=== PATIENT | male | born 1945 | race Caucasian/White ===

== ENCOUNTER 2016-06-09 20:08 | Emergency (ER) | payer MEDICARE, OTHER ==
--- NOTE | 2016-06-09 21:18 | ED ---
Cooper Fournier Rebecca, scribed for George Haney MD on 06/09/16 at 2035 . Lower Extremity - HPI Summary HPI Summary: Pt is a 71 y/o M who presents to ED c/o RLE wounds. Reports wounds have been present for approximately 2 months. Sx aggravated and alleviated by nothing. Recently has begun applying vitamin E to the wounds. additionally notes fever and AMS characterized as confusion for 4 days. Denies any pain. Was last seen by his PCP 1 month ago for an unrelated issue. Has not had his PCP evaluate wounds. - History of Current Complaint Chief Complaint: EDGeneral Stated Complaint: WOUND ON LOWER LEG Time Seen by Provider: 06/09/16 20:26 Hx Obtained From: Patient, Family/Town Marshal - Onset/Duration: Still Present Severity Currently: None Pain Intensity: 0 Pain Scale Used: 0-10 Numeric Location: Is Discrete @ - RLE Associated Signs And Symptoms: Positive: Fever, Other - AMS (confusion) Aggravating Factor(s): Nothing Alleviating Factor(s): Nothing - Allergies/Home Medications Allergies/Adverse Reactions: Allergies Allergy/AdvReac Type Severity Reaction Status Date / Time Penicillins AdvReac Intermediate GI Upset Verified 04/10/15 12:17 BEE STINGS Allergy ANAPHYLACTI Uncoded 04/10/15 12:17 C PMH/Surg Hx/FS Hx/Imm Hx Endocrine/Hematology History: Denies: Hx Diabetes Cardiovascular History: Reports: Hx Hypertension - ON MEDICATION FOR Denies: Hx Congestive Heart Failure, Hx Pacemaker/ICD Respiratory History: Reports: Hx Sleep Apnea History: Reports: Hx Kidney Stones - HX OF Denies: Hx Renal Disease Musculoskeletal History: Reports: Hx Arthritis, Hx Back Problems, Hx Orthopedic Injury - (left) tkr, Other Musculoskeletal History - SPINAL STENOSIS- SURGERY 2009 Sensory History: Reports: Hx Cataracts, Hx Contacts or Glasses - READING Denies: Hx Hearing Aid Opthamlomology History: Reports: Hx Cataracts, Hx Contacts or Glasses - READING Neurological History: Reports: Other Neuro Impairments/Disorders - RESTLESS LEG SYNDROME - Surgical History Surgery Procedure, Year, and Place: LEFT TKR- CJ. RIGHT TKR CJ 03/2014. BILAT CATARACTS 2005- [facility] [place]. 3 LEVEL LUMBAR LAMINECTOMY 2010 [facility]. RIGHT SHOULDER SURGERY X3 1998 [facility]. RIGHT KNEE SCOPING [facility] [place]-2000. LEFT FOOT SURGERY Hx Anesthesia Reactions: No - STRONG TOLERANCE TO PAIN MEDICATIONS AND ANESTHESIA" Infectious Disease History: Yes Infectious Disease History: Denies: Traveled Outside the [place] in Last 30 Days - Family History Known Family History: Positive: Diabetes - Social History Alcohol Use: None Alcohol Amount: RECOVERING ALCOHOLIC X 28 YEARS Substance Use Type: Reports: None Substance Use Comment - Amount & Last Used: MARIJUANA USE IN THE PAST- STOPPED IN 1979 Smoking Status (MU): Never Smoked Tobacco Amount Used/How Often: EVANJUANNA SMOKER X 14 YEARS Review of Systems Positive: Fever Positive: Other - Wound on the RLE Positive: Other - AMS (confusion) All Other Systems Reviewed And Are Negative: Yes Physical Exam Triage Information Reviewed: Yes Vital Signs On Initial Exam: Initial Vitals Temp Pulse Resp BP Pulse Ox 101.5 F 81 22 130/103 95 06/09/16 20:18 06/09/16 20:18 06/09/16 20:18 06/09/16 20:18 06/09/16 20:18 Appearance: Positive: No Pain Distress, Obese Skin: Positive: Warm Eyes: Positive: Normal ENT: Positive: Hearing grossly normal Neck: Positive: Supple Respiratory/Lung Sounds: Positive: Clear to Auscultation, Breath Sounds Present Cardiovascular: Positive: RRR Abdomen Description: Positive: Nontender, Soft Bowel Sounds: Positive: Present Musculoskeletal: Positive: Strength/ROM Intact, Other - area of warmth, erythema , iduration rle, no fluctuance, pulses 1+ disrtally Neurological: Positive: Sensory/Motor Intact, Alert, Oriented to Person Place, Time Diagnostics - Vital Signs Vital Signs Temp Pulse Resp BP Pulse Ox 06/09/16 20:18 101.5 F 81 22 130/103 95 - Laboratory Result Diagrams: 06/09/16 21:15 06/09/16 21:15 Lab Statement: Any lab studies that have been ordered have been reviewed, and results considered in the medical decision making process. Lower Extremity Course/Dx - Course Assessment/Plan: Pt is a 71 y/o M who presents to ED with a CC of wounds on the RLE for 2 months. notes fever and AMS (confusion) for the last 4 days. Denies any pain. Pt will be D/C to home with a dx of cellulitis with a follow up with his PCP. - Diagnoses Provider Diagnoses: Cellulitis Discharge - Discharge Plan Condition: Improved Disposition: HOME Prescriptions: Cephalexin CAP* [Keflex 500 CAP*] 500 mg PO QID #30 cap Patient Education Materials: Cellulitis (ED) Referrals: Waldemar Jenkins MD [Primary Care Provider] - 4 Days (Follow up with your primary care physician in the next 4 days. ) The documentation as recorded by the Cooper brothers Rebecca accurately reflects the service I personally performed and the decisions made by me, George Haney MD.
[2016-06-09 21:24] LABS: Hematocrit 45 % (42-52); Mean Corpuscular HGB Conc 33 g/dl (31-36); Mean Corpuscular Hemoglobin 29 pg (27-31); Mean Corpuscular Volume 86 fL (80-94); Mean Platelet Volume 9 um3 (7.4-10.4); Red Blood Count 5.22 10^6/ul (4.0-5.4); Red Cell Distribution Width 14 % (10.5-15); White Blood Count 14.8 10^3/ul (3.5-10.8)
[2016-06-09 21:38] LABS: Albumin 3.5 g/dL (3.2-5.2); BUN/Creatinine Ratio 16.6 (8-20); Calcium 8.3 mg/dL (8.6-10.3); EGFR African American 62.1 (>60); EGFR Non-African American 48.3 (>60); Globulin 3.7 g/dL (2-4); Magnesium 1.8 mg/dL (1.9-2.7); Potassium 3.2 mmol/L (3.5-5.0); Total Bilirubin 0.9 mg/dL (0.2-1.0); Total Protein 7.2 g/dL (6.4-8.9)
[2016-06-09] MEDS ORDERED: ceFAZolin 1 GM in Dextrose (*) 1 GM/50 ML BAG IVPB ONE (21:49)
[2016-06-09 23:27] VITALS: BP 130/54
== END 2016-06-09 23:26 | disposition home or self-care (01) ==
LOC: ED 20:08
DX: L03.115 Cellulitis of right lower limb (principal); S81.801A Unspecified open wound, right lower leg, initial encounter; R50.9 Fever, unspecified; R41.82 Altered mental status, unspecified
CPT/HCPCS: 36415; 80053; 83605; 83735; 85025; 99282; J0690

== ENCOUNTER 2017-07-06 00:48 | Inpatient (IN) | payer MEDICARE, OTHER ==
--- OUTSIDE RECORDS SUMMARY | 2017-07-06 01:05 | XMS REPORT ---
:1945 External Reference #:[id number] Author Organization [facility] [employer] Address [address] [address] Phone [phone] Care Team Providers Name Role Phone Althea Simon MD Care Team Information Teaching Manager Unavailable Waldemar Jenkins MD Primary Care Physician Unavailable Payers Type Date Identification Numbers Payment Provider Subscriber Medicare Primary Effective: Policy Number: Medicare Mark Suggs 2012 [id number] PayID: [id number] [address] [place] [address] Commercial Policy Number: [id number] [employer] Mark Suggs Group Number: [id number] [address] PayID: [id number] [place] [address] Medigap Part B Expires: 2017 Policy Number: [employer] Insurance Mark Suggs [id number] Group Number: [id number] [address] PayID: [id number] [place] [address] Problems Date Description Provider Status Onset: 08/29/2014 Periodic leg movements of sleep Latonya Villavicencio DNP, DAMI, Active ENVIRONMENTAL STUDIES DEPARTMENT CHAIR-BC Onset: 08/29/2014 Restless legs Latonya Villavicencio DNP, DAMI, Active ENVIRONMENTAL STUDIES DEPARTMENT CHAIR-BC Onset: 11/10/2014 Hypersomnia with sleep apnea Latonya Villavicencio DNP, RN, Active ENVIRONMENTAL STUDIES DEPARTMENT CHAIR-BC Note: Positional therapy to avoid supine sleep Onset: 03/11/2017 Hypoxemia Latonya Villavicencio DNP, RN, ENVIRONMENTAL STUDIES DEPARTMENT CHAIR-BC Active Family History Date Family Member(s) Problem(s) Comments General Diabetes Social History Type Date Description Comments Marital Status Lives With Lives With Daughter Lives With son in law Lives With Grandchildren 3 Occupation Retired Occupation Drafting and design For [employer] Cigarette Use Never Smoked Cigarettes ETOH Use Has consumed alcohol in the past ETOH Use Denies alcohol use Recreational Drug Use Denies Drug Use Smoking Patient has never smoked Recreational Drug Use Formerly used Marijuana Ended 1980 regularly Daily Caffeine Consumes on average 1 cup of regular coffee per day Exercise Type/Frequency Exercises regularly Works hard at home/ property, fence building, gardening, etc. Allergies, Adverse Reactions, Alerts Date Description Reaction Status Severity Comments 03/14/2014 NKDA active 11/18/2016 Bee Sting active Medications Medication Date Status Form Strength Qnty SIG Indications Ordering Provider Pramipexole 06/18 Active Tablets 0.25mg 90tab 3 tabs Latonya Dihydrochloride s every Villavicencio, evening DAMI CASTELLANOS, note ENVIRONMENTAL STUDIES DEPARTMENT CHAIR-BC increase dose Oxygen 02/12 Active Misc 1unit 2 l nc at R09.02 s bedtime Saud, EMANUEL RN, ENVIRONMENTAL STUDIES DEPARTMENT CHAIR-BC Gabapentin 08/29 Active Tablets 600mg 180ta 1 by mouth G25.81 bs at in the Villavicencio, morning and DAMI CASTELLANOS, noon, 1-2 ENVIRONMENTAL STUDIES DEPARTMENT CHAIR-BC by mouth at onset of rls sx, 2 by mouth at hs. Tramadol HCL 00 Active Tablets 50mg 120ta 1-2 tablets Unknown /0000 bs every 6 hours as needed Atenolol Active Tablets 50mg 1 by mouth Unknown /0000 every day Amitriptyline HCL Active Tablets 25mg 1 by mouth Unknown /0000 every night at bedtime Lyrica Active Capsules 50mg 1 by mouth Unknown /0000 4 x a day Pramipexole 05/13 Hx Tablets 0.125mg 120ta 1 tab 2-3 Latonya Dihydrochloride bs hours Villavicencio, - before bed, DAMI CASTELLANOS, 06/18 ENVIRONMENTAL STUDIES DEPARTMENT CHAIR-BC /2017 increase one tab q 4 days (States taking 1 tab qid 06/18/17) Horizant 03/11 Hx Tablets 600mg 30tab 1 po in gianna G47.61 ER s evening 6 Villavicencio, - PM DAMI CASTELLANOS, 05/13 ENVIRONMENTAL STUDIES DEPARTMENT CHAIR- Oxygen 02/12 Hx Misc 2 l nc at R09.02 bedtime dx. Saud, - Nocturnal EMANUEL RN, 02/12 hypoxemia ENVIRONMENTAL STUDIES DEPARTMENT CHAIR- Ultracet 04/10 Hx Tablets 37.5-325m 40tab 1 - 2 by Adryan /2014 g s mouth Sidney, - q4-6hr as M.D. 02/01 needed pain Hydrocodone-Aceta 02/15 Hx Tablets 5-325mg 30tab 1-2 by G56.02 Johnb minophen s mouth q4-6 MD Nicholas - hour as 02/01 needed pain Gabapentin 08/29 Hx Capsules 100mg 90cap 1-2 by 327.51 s mouth at at Villavicencio, - bedtime, DAMI CASTELLANOS, 08/29 may take ENVIRONMENTAL STUDIES DEPARTMENT CHAIR additional 100 mg if awaken at night with symptoms. Ropinirole HCL 07/12 Hx Tablets 1mg 450ta take 1 bs tablet by Saud, - mouth twice DAMI CASTELLANOS, 05/13 a day and 3 ENVIRONMENTAL STUDIES DEPARTMENT CHAIR tablets by mouth at bedtime. 3 month supply Gabapentin Hx Tablets 600mg 180ta 1 tab am Latonya / bs and noon, 2 Saud, - tabs at DAMI CASTELLANOS, 08/29 onset of ENVIRONMENTAL STUDIES DEPARTMENT CHAIR- RLS and 2 tabs at bedtime. Requip Hx Tablets 1mg 30tab 1mg twice a Unknown /0000 s day and 3mg - at bedtime 07/12 Amitriptyline HCL Hx Tablets 50mg 30tab 1 by mouth Unknown /0000 s every night - at bedtime 05/13 Cipro Hx Tablets 500mg 1 by mouth Unknown /0000 twice a day - 03/10 Levaquin /00 Hx Tablets 500mg 1 by mouth Unknown /0000 every day - 02/02 Acetaminophen-Cod Hx Tablets 300-30mg 1 tab by Unknown eine #3 /0000 mough every - 6 hrs as 03/10 Vital Signs Date Vital Result Comment 06/18/2017 Height 68 inches 5'8" Weight 295.12 lb with shoes Heart Rate 62 /min BP Systolic Sitting 170 mmHg Lue large cuff BP Diastolic Sitting 88 mmHg Lue large cuff Respiratory Rate 16 /min O2 % BldC Oximetry 97 % On Ra BMI (Body Mass Index) 44.9 kg/m2 05/13/2017 Height 68 inches 5'8" Weight 293.00 lb Heart Rate 64 /min BP Systolic 140 mmHg BP Diastolic 72 mmHg Respiratory Rate 16 /min BMI (Body Mass Index) 44.5 kg/m2 03/11/2017 Height 68 inches 5'8" Weight 297.00 lb Heart Rate 60 /min BP Systolic Sitting 140 mmHg BP Diastolic Sitting 78 mmHg Respiratory Rate 14 /min O2 % BldC Oximetry 96 % BMI (Body Mass Index) 45.2 kg/m2 02/03/2017 Height 68 inches 5'8" Weight 297.38 lb Heart Rate 72 /min BP Systolic Sitting 178 mmHg BP Diastolic Sitting 76 mmHg Respiratory Rate 14 /min Body Temperature 98.1 F BMI (Body Mass Index) 45.2 kg/m2 01/26/2017 Height 68 inches 5'8" Weight 290.00 lb Heart Rate 52 /min BP Systolic Sitting 158 mmHg BP Diastolic Sitting 98 mmHg Respiratory Rate 14 /min O2 % BldC Oximetry 98 % BMI (Body Mass Index) 44.1 kg/m2 11/18/2016 Height 68 inches 5'8" Weight 301.00 lb Heart Rate 66 /min BP Systolic Sitting 152 mmHg BP Diastolic Sitting 74 mmHg Respiratory Rate 20 /min O2 % BldC Oximetry 96 % room air BMI (Body Mass Index) 45.8 kg/m2 05/21/2016 Height 68 inches 5'8" Weight 280.00 lb reported Heart Rate 50 /min BP Systolic 146 mmHg BP Diastolic 80 mmHg Respiratory Rate 14 /min O2 % BldC Oximetry 96 % BMI (Body Mass Index) 42.6 kg/m2 11/13/2015 Height 68 inches 5'8" Weight 265.00 lb pt reported Heart Rate 52 /min BP Systolic Sitting 146 mmHg BP Diastolic Sitting 87 mmHg Respiratory Rate 18 /min O2 % BldC Oximetry 97 % BMI (Body Mass Index) 40.3 kg/m2 05/15/2015 Height 68 inches 5'8" Weight 270.50 lb reported Heart Rate 51 /min BP Systolic 148 mmHg BP Diastolic 88 mmHg Respiratory Rate 14 /min O2 % BldC Oximetry 96 % BMI (Body Mass Index) 41.1 kg/m2 05/14/2015 Height 68 inches 5'8" Weight 270.00 lb BMI (Body Mass Index) 41.0 kg/m2 04/23/2015 Height 68 inches 5'8" Weight 270.00 lb Body Temperature 97.2 F BMI (Body Mass Index) 41.0 kg/m2 03/26/2015 Height 68 inches 5'8" Weight 270.00 lb Pain Level 5 BMI (Body Mass Index) 41.0 kg/m2 02/15/2015 Height 68 inches 5'8" Weight 270.00 lb Heart Rate 49 /min BP Systolic Sitting 146 mmHg BP Diastolic Sitting 87 mmHg Pain Level 8 BMI (Body Mass Index) 41.0 kg/m2 01/18/2015 Height 68 inches 5'8" Weight 270.00 lb Heart Rate 54 /min Pain Level 8 BMI (Body Mass Index) 41.0 kg/m2 11/10/2014 Height 68 inches 5'8" Weight 275.00 lb Heart Rate 56 /min BP Systolic 150 mmHg BP Diastolic 80 mmHg Respiratory Rate 16 /min O2 % BldC Oximetry 98 % BMI (Body Mass Index) 41.8 kg/m2 Neck Circumference in inches 18 08/29/2014 Height 68 inches 5'8" Weight 285.00 lb Heart Rate 46 /min BP Systolic Sitting 130 mmHg BP Diastolic Sitting 84 mmHg O2 % BldC Oximetry 98 % BMI (Body Mass Index) 43.3 kg/m2 Neck Circumference in inches 18 03/14/2014 Height 68 inches 5'8" Weight 276.00 lb Heart Rate 59 /min BP Systolic Sitting 168 mmHg BP Diastolic Sitting 100 mmHg Respiratory Rate 18 /min O2 % BldC Oximetry 97 % BMI (Body Mass Index) 42.0 kg/m2 Results Description No Information Procedures Date CPT Code Description Status 12/12/2016 23559 Polysomnography Sleep Staging 4+ Parameters Completed 09/05/2016 98480 Removal Devitalized Tissue Wound Greater Than 20 Square Completed CM 09/05/2016 14970 Removal Devitalization Tissue Wound Less Than Equal 20 Completed Square CM 08/28/2016 86154 Removal Devitalized Tissue Wound Greater Than 20 Square Completed CM 08/28/2016 34730 Removal Devitalization Tissue Wound Less Than Equal 20 Completed Square CM 04/10/2015 51951 Carpal Tunnel Release Completed 04/10/2015 02656 Carpal Tunnel Release Completed 03/13/2015 45734 Carpal Tunnel Release Completed 03/13/2015 49914 Carpal Tunnel Release Completed 05/10/2007 57247 Holter Monitor Interpretation Completed 05/10/2007 73471 Holter Monitor Interpretation Completed Encounters Type Date Location Provider CPT E/M Dx Office Visit 05/13/2017 [facility] Latonya Villavicencio, 06100 G47.14 9:45a [facility] Of [facility] CASTELLANOS RN, ENVIRONMENTAL STUDIES DEPARTMENT CHAIR-BC G47.61 G47.33 R09.02 Z68.41 Office Visit 03/11/2017 2:00p [facility] Latonya Villavicencio, 24893 G47.33 Services Of [facility] CASTELLANOS RN, ENVIRONMENTAL STUDIES DEPARTMENT CHAIR-BC G47.14 G47.61 R09.02 I87.2 E66.01 Z68.42 Office Visit 02/03/2017 12:30p [facility] Aldo Hennessy, 69615 I87.2 Infectious Diseases Yovani L97.211 L97.221 Office Visit 01/26/2017 9:30a [facility]ology [facility] Sleep Latonya Villavicencio 75104 G47.33 Services Of Julee CASTELLANOS RN, ENVIRONMENTAL STUDIES DEPARTMENT CHAIR-ANA CRISTINA R09.02 G47.61 Office Visit 11/18/2016 8:30a [facility] Sleep Latonya Villavicencio 42682 G47.61 Services Of Julee CASTELLANOS RN, ENVIRONMENTAL STUDIES DEPARTMENT CHAIR-ANA CRISTINA R09.02 I87.2 E66.01 Z68.42 Office Visit 10/24/2016 9:00a [facility] [place] [address] I87.311 [facility] [place] R09.89 L97.211 R09.02 Z86.14 E66.01 I87.2 Office Visit 10/10/2016 8:00a [facility] [place] [address] I87.311 [facility] R09.89 L97.211 R09.02 Z86.14 E66.01 Office Visit 10/03/2016 9:30a [facility] [place] [address] I87.311 [facility] [place] R09.89 L97.211 R09.02 Z86.14 Office Visit 09/26/2016 9:00a [facility] [place] [address] I87.311 [facility] [place] R09.89 L97.211 R09.02 Z86.14 Office Visit 09/19/2016 9:00a [facility] [place] [address] I87.311 [facility] [place] R09.89 L97.211 R09.02 Z86.14 Office Visit 09/12/2016 9:00a [facility] [place] [address] I87.311 [facility] [place] R09.89 L97.211 R09.02 Z86.14 Office Visit 05/21/2016 8:15a [facility]ology [facility] Sleep Latonya Villavicencio 52884 G47.61 Services Of Julee CASTELLANOS RN, FNP-ANA CRISTINA G25.81 E66.9 G47.33 Office Visit 11/13/2015 9:00a Pul[facility]ology [facility] Sleep Latonya Villavicencio 46913 G47.61 Services Of Julee CASTELLANOS RN, FNP-BC G25.81 G47.33 E66.01 Office Visit 05/15/2015 9:00a Pul[facility]ology [facility] Sleep Latonya Villavicencio 53094 G47.61 Services Of uJlee CASTELLANOS RN, FNP-BC G25.81 G47.30 G89.29 Office Visit 02/15/2015 8:20a Orthopedic Services Andreina Humphrey 54772 G56.02 Of Gale Pina Office Visit 01/18/2015 1:40p Orthopedic Services Andreina Humphrey 88023 G56.02 Of Gale Pina G56.01 Office Visit 11/10/2014 8:15a Pulmonology And Sleep Latonya Villavicencio 50655 327.51 Services Of Julee CASTELLANOS RN, FNP-BC 333.94 780.53 Office Visit 08/29/2014 8:30a Pul[facility] Sleep Latonya Villavicencio 89815 327.51 Services Of Julee CASTELLANOS RN, FNP-BC 333.94 Office Visit 03/14/2014 9:30a Pul[facility]ology [facility] Sleep Abilio Arroyo M.D. 72848 327.51 Services Of Julee 327.27 Office Visit 01/17/2008 9:00a Neurosurgery Services Of Huseyin Bo, 38543 724.1 Julee Pina Plan of Care Future Appointment(s):09/15/2017 10:00 am - Latonya Villavicencio DNP, RN, ENVIRONMENTAL STUDIES DEPARTMENT CHAIR-BC at [facility]06/18/2017 - Latonya Villavicencio DNP, RN, ENVIRONMENTAL STUDIES DEPARTMENT CHAIR- BCG47.8 Other sleep disordersFollow up:3 monthsRecommendations:Continue positional therapy for sleep apnea. To reduce sleep eating increased dose of pramipexole 0.25 mg 3 tabs every evening Call with report on how you are doing in 1 month If you have any furtherquestions, please call the Sleep Disorder Center at [phone].g47.61 Periodic limb movement disorderRecommendations:See assessment #1G47.33 Obstructive sleep apnea (adult) (pediatric)Recommendations:Positional LjvpcfrB96.02 HypoxemiaRecommendations: Continue oxygen 2 L at jnthbJ43.41 Body mass index (BMI) 40.0-44.9, adultRecommendations:Recommend weight loss
--- OUTSIDE RECORDS SUMMARY | 2017-07-06 01:07 | XMS REPORT ---
:1945 External Reference #:[id number] Author Organization [facility] Address [address] [place] [address] Phone [phone] Care Team Providers Name Role Phone Waldemar Jenkins MD Care Team Information Entry Level Project Engineer Unavailable Waldemar Jenkins MD Primary Care Physician Unavailable Payers Type Date Identification Numbers Payment Provider Subscriber Medicare Primary Effective: Policy Number: Medicare [place] 2012 [id number] PayID: [id number] [address] [place] [address] Medigap Part B Effective: 2012 Policy Number: Aetolga Suggs [id number] Group Name: Eric Mendoza [address] PayID: [id number] [place] [address] Medigap Part B Effective: Policy Number: BC/BS Dina Daley 2013 [id number] Es Expires: 2014 PayID: [id number] [address] [address] [place] [address] Problems Date Description Provider Status Onset: 04/14/2011 Backache Waldemar Jenkins M.D. Active Onset: 04/14/2011 Restless legs Waldemar Jenkins M.D. Active Onset: 04/14/2011 Central sleep apnea syndrome Waldemar Jenkins M.D. Active Onset: 06/09/2011 Acute otitis externa Waldemar Jenkins M.D. Active Onset: 07/10/2011 Otitis media Barbara Santillan M.D. Active Onset: 10/08/2011 Cellulitis and abscess of buttock Waldemar Jenkins M.D. Active Onset: 10/20/2011 Carpal tunnel syndrome Waldemar Jenkins M.D. Active Onset: 04/07/2012 Eruption Waldemar Jenkins M.D. Active Onset: 07/18/2013 Acute bronchitis Waldemar Jenkins M.D. Active Onset: 11/16/2013 Pain in limb Waldemar Jenkins M.D. Active Onset: 08/21/2014 Benign essential hypertension Waldemar Jenkins M.D. 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 Active Onset: 07/11/2015 Low back pain Waldemar Jenkins M.D. Active Onset: 02/19/2016 Cellulitis of right lower limb Wadlemar Jenkins M.D. Active Onset: 08/18/2016 Essential hypertension Waldemar Jenkins M.D. Active Social History Type Date Description Comments Occupation Retired Cigarette Use Nonsmoker Smoking Patient has never smoked Allergies, Adverse Reactions, Alerts Date Description Reaction Status Severity Comments 09/11/1997 Penicillin active 09/11/1997 Jose M Dave active Medications Medication Date Status Form Strength Qnty SIG Indications Ordering Provider Atenolol 04/07 Active Tablets 100mg 90tab 1/2 tablet Waldemar Isaiah s by mouth Breiman, every day M.D. Lasix 12/01 Active Tablets 20mg 30tab 1 by mouth Isaiah s in in the iman, morning for M.D. fluid Amitriptyline 09/29 Active Tablets 25mg 90tab take one Waldemar Colon s tablet by Breiman, mouth at M.D. 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 12/06 Diflucan 08/18 Hx Tablets 150mg 3tabs 1 by mouth Waldemar Colon /2016 x every Breimazachary, - other day M.DTrista 05/10 for 6 Silvadene 02/18 Hx Cream 1% 25gm Use Daily Waldemar Colon /2015 Maged Jenkins M.D. 05/10 Lasix 02/18 Hx Tablets 20mg 30tab 1 by mouTH Waldemar Colon /2015 s In Am Maged Jenkins M.D. 05/09 Keflex 02/18 Hx Capsules 500mg 20cap 1 by mouth Waldemar Colon /2015 s twice a day Maged Jenkins M.D. 03/05 Hydrocodone-Ac 07/10 Hx Tablets 10-325mg 50tab 1 tab by Waldemar Colon etamin s mouth every Gregory, - 6 hours as M.DTrista 02/18 Atenolol 08/21 Hx Tablets 50mg 30tab 1 by mouth s daily for bp Qasim, - S[employer]IOR [employer] DES[employer] ENGINEER 04/07 Vicodin 07/18 Hx 10/325 50uni 1 po q4-6 844.8 Waldemar Colon /2013 ts hrs prn pain Maged Jenkins M.D. 11/16 Doxycycline 07/18 Hx Capsules 100mg 20cap use 1bid Waldemar Colon Hyclate /2013 s Maged Jenkins M.D. 11/16 Nerve 11/03 Hx bilateral Waldemar Colon Conduction /2011 upper Gregory, Studies - extremity Yovani 04/07 nerve /2011 conduction studies Wristbrace 10/19 Hx r and l Waldemar Colon /2011 wrist brace Maged Jenkins M.D. 04/07 Clindamycin 10/07 Hx Capsules 150mg 60cap 3 po qid Waldemar Colon HCL Maged Gonzalez M.D. 10/19 Doxycycline 08/17 Hx Capsules 100mg 20cap 1 po bid Veronica Hyclate s Maged Remy Afnp-C 08/27 Ceftin 07/08 Hx Tablets 500mg 20tab 1 po bid x Waldmear JTrista /2011 s 10 days Ok Gregory, - To Fill with M.DTrista 08/17 allergy to penicillin Cipro 06/09 Hx Tablets 500 20tab 1 po bid Waldemar JTrista /2011 Maged Gonzalez M.D. 07/09 Handicapped 10/16 Hx needs Waldemar Colon Parking permanent Gregory, - handicapped M.Annamarie 04/14 sticker for arthritis Cortisporin 03/26 Hx Solution 1unit 2gtts tid Waldemar Colon Otic s x 4 days Maged Jenkins M.D. 05/15 Vicodin 01/09 Hx 10 30uni 1 po q4-6 844.8 Veronica ts hrs prn pain Maged Remy 03/26 Requip 08/25 Hx Tablets 1mg 180ta 1 po q hs Waldemar Colon Maged Hawkins M.D. 11/08 Neurontin 08/25 Hx Tablets 600mg 1 po qid Waldemar Colon Maged Jenkins M.D. 08/21 Centrum Silver 05/20 Hx 1 PO qd [facility] /[facility] Glucosamine/Ch 05/20 Hx 1 PO qd Family ondroitin /2006 [facility] Calcium/Magnes 05/20 Hx Family iium /2006 [facility] Iron Tab 05/20 Hx 100un Family /2006 its [facility] Vitamin E 05/20 Hx Capsules 1 PO qd Family /2006 [facility] Betamethasone 07/23 Hx Ointment 0.05% 45gm apply bid to Bobby T. Dipropionate /2005 hands prn Maged Gonzalez M.D. 08/25 Lachydrin 07/23 Hx 12% 16Oz Apply tid Bobby T. prn To [facility], - Affected M.D. 08/25 Prednisone 03/24 Hx Tablets 10mg 30tab 4 qd x3 then Bobby T. /2005 s 3 qd x 3 Midura, - days then 2 M.D. 07/23 qd x 3 1 qd x 3 Percocet 03/24 Hx Tablets 10mg;325 60tab 1-2 po q6 Bobby T. /2005 mg s hours prn Lisa, - M.D. 07/23 Note 09/20 Hx please D/c Waldemar Colon /2004 pt's oxygen Maged Jenkins M.D. 07/23 Hydrocodone/Ap 09/11 Hx Tablets 10/325 30tab 1 q4h prn Waldemar cortez /2004 s Maged Jenkins M.D. 07/23 Physical 09/11 Hx treatment Waldemar Colon Therapy and Gregory - evaluation M.DTrista 03/24 for back for /2004 4-6wks Neurontin 04/05 Hx 300mg 450un 5 op q hs [facility] Note 05/23 Hx 1Month Needs Jackson Colon /2002 Appropriate Maged Flores M.DTrista 06/22 Parking For /2002 Work Within 100FT From Building Cpap 02/24 Hx 1unit Needs Waldemar Colon /2001 s Bilevel Cpap Gregory - 14-Inspirato M.DTrista 04/05 ry And Exspiratory Orthodic 06/21 Hx as Needed Waldemar Colon /2001 For Tarsal Maged Jenkins M.D. 04/05 Tunnel-Bilat erally Biaxin 11/20 Hx 500mg 20uni 1 PO bid Gonzalo A. Maged Moss M.D. 11/30 Vioxx 11/20 Hx 25mg 30uni 1 PO qd prn Gonzalo Jovel /2000 ts Pain Maged Abel M.D. 12/20 Ultram 07/14 Hx Tablets 50mg 180ta Take One Waldemar Colon /2000 bs Tablet By Breiman, - Mouth Every M.D. 04/07 4 Hours Needed Elavil 03/16 Hx 25mg 30uni 1 PO qd Waldemar JTrista /1999 Maged Lambert M.D. 04/05 Ultram 07/05 Hx 50mg 120un 1 PO qid prn Gary STrista its Yovani Paz - 02/18 Ciprofloxacin 07/05 Hx 500mg 20uni 1 PO bid Eric Veliz /1999 Maged VargasDTrista 07/15 Vosol HC Otic 07/05 Hx Magdalena 10cc 3-4 gtts Eric Veliz Drops /1999 Each Ear bid Marcela, - prn M.D. 07/15 Amitriptyline 07/05 Hx Tablets 25mg 90tab take one Waldemar COHEN s tablet by Gregory, - mouth at M.D. 05/09 bedtime /2016 Cipro 01/21 Hx Tabs 500mg 20tab 1 PO bid Veronica /1998 s Hilcedricorf, - Afnp-C 01/31 Cortisporin 01/21 Hx 1Bott 4-5 gtts Veronica Otic le Into R Ear [place], - qid X 7 Days Afnp-C 01/28 TB Intradermal Active Injection Family Test /[facility] Medications Administered in Office Medication Date Status Form Strength Qnty SIG Indications Ordering Provider TB Intradermal Administered Injection Waldemar Colon Test 005 Yovani Jenkins TB Intradermal Administered Injection Jackson Colon Test 003 Yovani Flores TB Intradermal Administered Injection Nurse, Test 998 Nurse Immunizations CPT Code Status Date Vaccine Lot # [id number] Given 01/30/2017 High-Dose, Influenza Virus Vacccine-fluzone 65 and older 12820 Given 02/27/2016 High-Dose, Influenza Virus Vacccine-fluzone 65 and [id number] older 27945 Given 03/07/2013 Pneumococcal Conjugate Vacc-13 [id number] Given 03/07/2013 High-Dose, Influenza Virus Vacccine-fluzone 65 and [id number] older 14789 Given 05/15/2009 H1N1 Virus Vaccine [id number] 26056 Given 05/15/2009 H1N1 Immunization Intramuscular/Intranasal W Counseling 25727 Given 01/09/2009 DO Not Use Split Influenza Virus Vaccine [id number] Vital Signs Date Vital Result Comment 06/16/2017 BP Systolic 162 mmHg BP Diastolic 70 mmHg Heart Rate 68 /min Body Temperature 99.0 F Weight 294.12 lb 05/15/2017 BP Systolic 128 mmHg BP Diastolic 70 mmHg Heart Rate 64 /min Body Temperature 97.9 F Respiratory Rate 18 /min Height 66.50 inches 5'6.50" Weight 292.00 lb BMI (Body Mass Index) 46.4 kg/m2 05/11/2017 BP Systolic 160 mmHg BP Diastolic 84 mmHg Heart Rate 60 /min Body Temperature 98.6 F Height 66.50 inches 5'6.50" Weight 294.38 lb BMI (Body Mass Index) 46.8 kg/m2 08/18/2016 BP Systolic 132 mmHg BP Diastolic 70 mmHg Heart Rate 64 /min Body Temperature 97.6 F Respiratory Rate 18 /min Height 66.50 inches 5'6.50" Weight 293.00 lb BMI (Body Mass Index) 46.6 kg/m2 06/13/2016 BP Systolic 110 mmHg BP Diastolic 72 mmHg Heart Rate 60 /min Body Temperature 97.7 F Respiratory Rate 18 /min Height 66.50 inches 5'6.50" Weight 282.00 lb BMI (Body Mass Index) 44.8 kg/m2 05/09/2016 BP Systolic 170 mmHg BP Diastolic 82 mmHg Heart Rate 56 /min Body Temperature 97.6 F Respiratory Rate 18 /min Height 66.50 inches 5'6.50" Weight 288.50 lb BMI (Body Mass Index) 45.9 kg/m2 03/05/2016 BP Systolic 150 mmHg BP Diastolic 80 mmHg Heart Rate 58 /min Body Temperature 97.9 F Respiratory Rate 22 /min Height 66.50 inches 5'6.50" 02/27/2016 BP Systolic 146 mmHg BP Diastolic 80 mmHg Heart Rate 58 /min Body Temperature 97.4 F Respiratory Rate 22 /min Height 66.50 inches 5'6.50" Weight 300.50 lb BMI (Body Mass Index) 47.8 kg/m2 02/19/2016 BP Systolic 144 mmHg BP Diastolic 90 mmHg Heart Rate 58 /min Body Temperature 97.1 F Respiratory Rate 20 /min Height 66.50 inches 5'6.50" Weight 303.50 lb BMI (Body Mass Index) 48.2 kg/m2 07/11/2015 BP Systolic 120 mmHg BP Diastolic 70 mmHg Heart Rate 60 /min Body Temperature 98.4 F Respiratory Rate 18 /min Height 66.50 inches 5'6.50" Weight 285.00 lb BMI (Body Mass Index) 45.3 kg/m2 12/18/2014 BP Systolic 168 mmHg BP Diastolic 72 mmHg Heart Rate 68 /min Body Temperature 97.6 F Height 66.50 inches 5'6.50" Weight 282.00 lb BMI (Body Mass Index) 44.8 kg/m2 09/14/2014 BP Systolic 130 mmHg BP Diastolic 78 mmHg Heart Rate 62 /min Body Temperature 96.4 F Respiratory Rate 16 /min Height 66.50 inches 5'6.50" Weight 289.00 lb BMI (Body Mass Index) 45.9 kg/m2 08/21/2014 BP Systolic 160 mmHg BP Diastolic 80 mmHg Heart Rate 62 /min Body Temperature 97.8 F Respiratory Rate 20 /min Height 66.50 inches 5'6.50" Weight 292.00 lb BMI (Body Mass Index) 46.4 kg/m2 11/16/2013 BP Systolic 136 mmHg BP Diastolic 80 mmHg Heart Rate 58 /min Body Temperature 97.5 F Respiratory Rate 20 /min Height 66.50 inches 5'6.50" Weight 264.00 lb BMI (Body Mass Index) 42.0 kg/m2 07/18/2013 BP Systolic 140 mmHg BP Diastolic 80 mmHg Heart Rate 62 /min Body Temperature 97.8 F Respiratory Rate 20 /min O2 % BldC Oximetry 98 % Height 66.50 inches 5'6.50" Weight 271.00 lb BMI (Body Mass Index) 43.1 kg/m2 03/07/2013 BP Systolic 146 mmHg BP Diastolic 80 mmHg Heart Rate 66 /min Body Temperature 97.3 F Respiratory Rate 18 /min Height 66.50 inches 5'6.50" Weight 257.00 lb BMI (Body Mass Index) 40.9 kg/m2 04/07/2012 BP Systolic 140 mmHg BP Diastolic 70 mmHg Heart Rate 68 /min Body Temperature 96.9 F Height 67 inches 5'7" Weight 254.00 lb BMI (Body Mass Index) 39.8 kg/m2 10/20/2011 BP Systolic 152 mmHg BP Diastolic 72 mmHg Heart Rate 66 /min Body Temperature 97.5 F Height 67 inches 5'7" Weight 263.00 lb BMI (Body Mass Index) 41.2 kg/m2 10/13/2011 BP Systolic 122 mmHg BP Diastolic 62 mmHg Heart Rate 68 /min Body Temperature 97.5 F Height 67 inches 5'7" Weight 262.00 lb BMI (Body Mass Index) 41.0 kg/m2 10/08/2011 BP Systolic 150 mmHg BP Diastolic 84 mmHg Heart Rate 72 /min Body Temperature 97.7 F Height 67 inches 5'7" Weight 263.00 lb BMI (Body Mass Index) 41.2 kg/m2 09/25/2011 BP Systolic 140 mmHg BP Diastolic 60 mmHg Heart Rate 84 /min Body Temperature 104.1 F Height 67 inches 5'7" Weight 267.00 lb BMI (Body Mass Index) 41.8 kg/m2 08/18/2011 BP Systolic 138 mmHg BP Diastolic 70 mmHg Heart Rate 72 /min Body Temperature 98.2 F Height 67 inches 5'7" Weight 268.00 lb BMI (Body Mass Index) 42.0 kg/m2 07/10/2011 BP Systolic 128 mmHg BP Diastolic 80 mmHg Heart Rate 84 /min Body Temperature 98.9 F Height 67 inches 5'7" Weight 265.00 lb BMI (Body Mass Index) 41.5 kg/m2 06/09/2011 BP Systolic 140 mmHg BP Diastolic 90 mmHg Heart Rate 76 /min Body Temperature 97.8 F Respiratory Rate 15 /min Height 67 inches 5'7" Weight 265.00 lb BMI (Body Mass Index) 41.5 kg/m2 04/14/2011 BP Systolic 140 mmHg BP Diastolic 72 mmHg Heart Rate 72 /min Height 67 inches 5'7" Weight 255.00 lb BMI (Body Mass Index) 39.9 kg/m2 10/16/2010 BP Systolic 150 mmHg BP Diastolic 84 mmHg Heart Rate 66 /min Body Temperature 98.1 F Height 67 inches 5'7" Weight 269.00 lb BMI (Body Mass Index) 42.1 kg/m2 08/19/2010 BP Systolic 120 mmHg BP Diastolic 80 mmHg Heart Rate 60 /min Body Temperature 98.5 F Height 67 inches 5'7" Weight 265.00 lb BMI (Body Mass Index) 41.5 kg/m2 07/29/2010 BP Systolic 150 mmHg BP Diastolic 80 mmHg Heart Rate 68 /min Respiratory Rate 16 /min Height 67 inches 5'7" Weight 265.00 lb BMI (Body Mass Index) 41.5 kg/m2 01/07/2010 BP Systolic 150 mmHg BP Diastolic 74 mmHg Heart Rate 80 /min Height 67 inches 5'7" Weight 272.00 lb BMI (Body Mass Index) 42.6 kg/m2 05/15/2009 BP Systolic 162 mmHg BP Diastolic 80 mmHg Heart Rate 72 /min Height 67 inches 5'7" Weight 264.00 lb BMI (Body Mass Index) 41.3 kg/m2 03/26/2009 BP Systolic 150 mmHg BP Diastolic 90 mmHg Heart Rate 68 /min Body Temperature 98.6 F 01/09/2009 BP Systolic 128 mmHg BP Diastolic 80 mmHg Heart Rate 60 /min Body Temperature 98.2 F Weight 262.00 lb 11/08/2008 BP Systolic 146 mmHg BP Diastolic 70 mmHg Heart Rate 60 /min Body Temperature 98.8 F Height 67 inches 5'7" Weight 249.00 lb BMI (Body Mass Index) 39.0 kg/m2 08/25/2008 BP Systolic 140 mmHg BP Diastolic 78 mmHg Heart Rate 64 /min Body Temperature 98.3 F Respiratory Rate 12 /min Weight 258.00 lb 12/28/2007 BP Systolic 144 mmHg BP Diastolic 70 mmHg Heart Rate 72 /min Height 67.5 inches 5'7.50" Weight 242.00 lb BMI (Body Mass Index) 37.3 kg/m2 08/28/2006 BP Systolic 132 mmHg BP Diastolic 72 mmHg Heart Rate 74 /min Body Temperature 98.4 F Height 67.5 inches 5'7.50" Weight 247.00 lb BMI (Body Mass Index) 38.1 kg/m2 06/29/2006 BP Systolic 152 mmHg BP Diastolic 84 mmHg Heart Rate 80 /min Height 67.5 inches 5'7.50" Weight 280.00 lb BMI (Body Mass Index) 43.2 kg/m2 05/20/2006 BP Systolic 152 mmHg BP Diastolic 88 mmHg Heart Rate 76 /min Height 67.5 inches 5'7.50" Weight 283.00 lb BMI (Body Mass Index) 43.7 kg/m2 03/30/2006 BP Systolic 152 mmHg BP Diastolic 72 mmHg Heart Rate 76 /min Height 67.5 inches 5'7.50" Weight 281.00 lb BMI (Body Mass Index) 43.4 kg/m2 03/09/2006 BP Systolic 162 mmHg BP Diastolic 82 mmHg Heart Rate 68 /min Height 67.5 inches 5'7.50" Weight 275.00 lb BMI (Body Mass Index) 42.4 kg/m2 12/09/2005 BP Systolic 128 mmHg BP Diastolic 72 mmHg Heart Rate 72 /min Height 67.5 inches 5'7.50" Weight 259.00 lb BMI (Body Mass Index) 40.0 kg/m2 07/23/2005 BP Systolic 148 mmHg BP Diastolic 80 mmHg Heart Rate 76 /min Height 67.5 inches 5'7.50" Weight 270.00 lb BMI (Body Mass Index) 41.7 kg/m2 03/24/2005 BP Systolic 122 mmHg BP Diastolic 84 mmHg Heart Rate 82 /min Body Temperature 98.2 F Respiratory Rate 16 /min Height 67.5 inches 5'7.50" 04/05/2004 BP Systolic 122 mmHg BP Diastolic 68 mmHg Heart Rate 64 /min Height 67.5 inches 5'7.50" Weight 231.00 lb BMI (Body Mass Index) 35.6 kg/m2 12/06/2002 BP Systolic 98 mmHg BP Diastolic 58 mmHg Heart Rate 64 /min Body Temperature 97.1 F Height 67.5 inches 5'7.50" Weight 202.00 lb BMI (Body Mass Index) 31.2 kg/m2 09/30/2002 BP Systolic 114 mmHg BP Diastolic 66 mmHg Heart Rate 60 /min Height 68.5 inches 5'8.50" Weight 215.00 lb BMI (Body Mass Index) 32.2 kg/m2 09/05/2002 BP Systolic 130 mmHg BP Diastolic 70 mmHg Heart Rate 64 /min Body Temperature 97.0 F Height 68.5 inches 5'8.50" Weight 231.00 lb BMI (Body Mass Index) 35.1 kg/m2 05/23/2002 BP Systolic 140 mmHg BP Diastolic 80 mmHg Heart Rate 76 /min Height 68.5 inches 5'8.50" Weight 290.00 lb BMI (Body Mass Index) 44.1 kg/m2 01/04/2002 BP Systolic 130 mmHg BP Diastolic 86 mmHg Heart Rate 68 /min Height 68.5 inches 5'8.50" Weight 285.00 lb BMI (Body Mass Index) 43.3 kg/m2 11/08/2001 BP Systolic 134 mmHg BP Diastolic 70 mmHg Heart Rate 56 /min Height 68.5 inches 5'8.50" Weight 286.00 lb BMI (Body Mass Index) 43.5 kg/m2 06/21/2001 BP Systolic 128 mmHg BP Diastolic 76 mmHg Heart Rate 80 /min Height 68.5 inches 5'8.50" Weight 288.00 lb BMI (Body Mass Index) 43.8 kg/m2 05/19/2001 BP Systolic 126 mmHg BP Diastolic 84 mmHg Body Temperature 97.8 F Height 68.5 inches 5'8.50" Weight 286.00 lb BMI (Body Mass Index) 43.5 kg/m2 11/20/2000 BP Systolic 122 mmHg BP Diastolic 74 mmHg Body Temperature 97.4 F Height 68.5 inches 5'8.50" Weight 273.00 lb BMI (Body Mass Index) 41.5 kg/m2 07/14/2000 BP Systolic 132 mmHg BP Diastolic 76 mmHg Heart Rate 72 /min Height 68.5 inches 5'8.50" Weight 278.00 lb BMI (Body Mass Index) 42.3 kg/m2 01/21/2000 BP Systolic 132 mmHg BP Diastolic 80 mmHg Heart Rate 76 /min Height 69.5 inches 5'9.50" Weight 164.00 lb BMI (Body Mass Index) 24.2 kg/m2 11/20/1999 BP Systolic 132 mmHg LG Cuff BP Diastolic 76 mmHg LG Cuff Height 69.5 inches 5'9.50" Weight 270.00 lb BMI (Body Mass Index) 39.9 kg/m2 09/06/1999 BP Systolic 114 mmHg LG Cuff BP Diastolic 80 mmHg LG Cuff Height 69.5 inches 5'9.50" Weight 274.00 lb BMI (Body Mass Index) 40.5 kg/m2 07/06/1999 BP Systolic 116 mmHg LG Cuff BP Diastolic 80 mmHg LG Cuff Body Temperature 97.4 F Height 69.5 inches 5'9.50" Weight 271.00 lb BMI (Body Mass Index) 40.0 kg/m2 01/21/1999 Body Temperature 97.4 F Weight 274.00 lb 03/30/1998 BP Systolic 130 mmHg BP Diastolic 72 mmHg 09/27/1997 BP Systolic 120 mmHg BP Diastolic 82 mmHg Weight 259.00 lb 09/11/1997 BP Systolic 104 mmHg LG Cuff BP Diastolic 66 mmHg LG Cuff Heart Rate 60 /min Body Temperature 97.7 F Height 69.5 inches 5'9.50" Weight 256.50 lb Results Test Date Test Result H/L Range Note CBC Auto Diff 06/09/2016 White Blood Count 14.8 10^3/uL High 3.5-10.8 Red Blood Count 5.22 10^6/uL 4.0-5.4 Hemoglobin 15.0 g/dL 14.0-18.0 Hematocrit 45 % 42-52 Mean Corpuscular Volume 86 fL 80-94 Mean Corpuscular Hemoglobin 29 pg 27-31 Mean Corpuscular HGB Conc 33 g/dL 31-36 Red Cell Distribution Width 14 % 10.5-15 Platelet Count 115 10^3/uL Low 150-450 Mean Platelet Volume 9 um3 7.4-10.4 Abs Neutrophils 11.7 10^3/uL High 1.5-7.7 Abs Lymphocytes 1.8 10^3/uL 1.0-4.8 Abs Monocytes 1.2 10^3/uL High 0-0.8 Abs Eosinophils 0 10^3/uL 0-0.6 Abs Basophils 0.1 10^3/uL 0-0.2 Abs Nucleated RBC 0.01 10^3/uL Granulocyte % 79.0 % 38-83 Lymphocyte % 12.5 % Low 25-47 Monocyte % 8.1 % 1-9 Eosinophil % 0 % 0-6 Basophil % 0.4 % 0-2 Nucleated Red Blood Cells % 0 Laboratory test finding 06/09/2016 Lactic Acid 1.1 mmol/L 0.5-2.0 1 Comp Metabolic Panel 06/09/2016 Sodium 132 mmol/L Low 133-145 Potassium 3.2 mmol/L Low 3.5-5.0 Chloride 99 mmol/L Low 101-111 Co2 Carbon Dioxide 22 mmol/L 22-32 Anion Gap 11 mmol/L 2-11 Glucose 83 mg/dL 70-100 Blood Urea Nitrogen 24 mg/dL 6-24 Creatinine 1.45 mg/dL High 0.67-1.17 BUN/Creatinine Ratio 16.6 8-20 Calcium 8.3 mg/dL Low 8.6-10.3 Total Protein 7.2 g/dL 6.4-8.9 Albumin 3.5 g/dL 3.2-5.2 Globulin 3.7 g/dL 2-4 Albumin/Globulin Ratio 0.9 Low 1-3 Total Bilirubin 0.90 mg/dL 0.2-1.0 Alkaline Phosphatase 53 U/L 34-104 Alt 52 U/L 7-52 Ast 141 U/L High 13-39 Egfr Non- 48.3 >60 Egfr 62.1 >60 2 Laboratory test finding 06/09/2016 Magnesium 1.8 mg/dL Low 1.9-2.7 Lipid Profile 12/18/2014 Cholesterol 160 mg/dL 120-200 Triglycerides 228 mg/dL High 30-200 HDL Cholesterol 25 mg/dL Low 30-70 3 LDL (Calculated) 89 CALC 0-129 VLDL Cholesterol 46 mg/dL 0-50 HDL Risk Factor 6.4 CALC High 0.0-4.4 Laboratory test finding 12/18/2014 Glucose, Serum 104 mg/dL 70-105 Iron And Tibc 09/14/2014 Iron Bind.Cap.(Tibc) 273 g/dL 250-450 4 Uibc 186 g/dL 150-375 4 Iron, Serum 87 g/dL 40-155 4 Iron Saturation 32 % 15-55 4 Lipid Profile 09/14/2014 Cholesterol 141 mg/dL 120-200 Triglycerides 384 mg/dL High 30-200 HDL Cholesterol 23 mg/dL Low 30-70 LDL (Calculated) 41 CALC 0-129 VLDL Cholesterol 77 mg/dL High 0-50 HDL Risk Factor 6.1 CALC High 0.0-4.4 Complete Blood Count 09/14/2014 WBC 5.9 x10^3/UL 3.6-9.6 RBC 4.64 x10^6/UL 3.90-5.70 HGB 14.0 g/dL 12.1-17.2 HCT 41 % 36-50 MCV 89.0 fL 82.2-97.4 MCH 30.2 pg 27.6-33.3 MCHC 34.1 g/dL 33.0-35.5 RDW 14.9 % High 11.6-13.7 PLT 171 x10^3/UL 150-400 MPV 7.2 fL Low 7.4-10.4 Gran # 3.0 x10^3/UL 1.5-7.2 Lymph# 2.5 x10^3/UL 0.7-4.9 Hughes# 0.4 x10^3/UL 0.1-0.9 Gran % 49.5 % 42.2-75.2 Lymph % 43.0 % 20.5-51.1 Hughes% 7.5 % 1.7-9.3 Laboratory test finding 09/14/2014 Ferritin 87 ng/mL 22-415 Vitamin B-12 282 pg/mL 230-1050 LDL, Direct 61 mg/dL 0-130 CBC Auto Diff 02/03/2014 White Blood Count 14.2 10^3/uL High 4.8-10.8 Red Blood Count 5.43 10^6/uL High 4.0-5.4 Hemoglobin 16.0 g/dL 14.0-18.0 Hematocrit 46 % 42-52 Mean Corpuscular Volume 84 fL 80-94 Mean Corpuscular Hemoglobin 29 pg 27-31 Mean Corpuscular HGB Conc 35 g/dL 31-36 Red Cell Distribution Width 14 % 10.5-15 Platelet Count 189 10^3/uL 150-450 Mean Platelet Volume 8 um3 7.4-10.4 Abs Neutrophils 11.7 10^3/uL High 1.5-7.7 Abs Lymphocytes 1.5 10^3/uL 1.0-4.8 Abs Monocytes 0.9 10^3/uL High 0-0.8 Abs Eosinophils 0 10^3/uL 0-0.6 Abs Basophils 0 10^3/uL 0-0.2 Abs Nucleated RBC 0.01 10^3/uL Granulocyte % 82.8 % 38-83 Lymphocyte % 10.2 % Low 25-47 Monocyte % 6.4 % 1-9 Eosinophil % 0.3 % 0-6 Basophil % 0.3 % 0-2 Nucleated Red Blood Cells % 0.1 Laboratory test finding 02/03/2014 Lipase 18 U/L 11.0-82.0 C Reactive Protein 7.82 mg/L High < 5.00 5 Inr/Protime 02/03/2014 Inr 0.97 0.85-1.06 Laboratory test finding 02/03/2014 Activated Partial 34.0 seconds 24.0- 36.1 Thrombo Time Lactic Acid 1.8 mmol/L 0.5-2.2 Comp Metabolic Panel 02/03/2014 Sodium 139 mmol/L 133-145 Potassium 3.9 mmol/L 3.7-5.6 Chloride 103 mmol/L 101-111 Co2 Carbon Dioxide 28 mmol/L 22-32 Anion Gap 8 mmol/L 2-11 Glucose 113 mg/dL High 70-100 Blood Urea Nitrogen 14 mg/dL 6-24 Creatinine 1.25 mg/dL High 0.67-1.17 BUN/Creatinine Ratio 11.2 8-20 Calcium 9.2 mg/dL 8.6-10.3 Total Protein 7.9 g/dL 6.4-8.9 Albumin 4.4 g/dL 3.2-5.2 Globulin 3.5 g/dL 2-4 Albumin/Globulin Ratio 1.3 1-3 Total Bilirubin 0.50 mg/dL 0.2-1.0 Alkaline Phosphatase 81 U/L 34-104 Alt 31 U/L 7-52 Ast 33 U/L 13-39 Egfr Non- 57.8 >60 Egfr 74.3 >60 6 Urinalysis Profile 02/03/2014 Urine Color Yellow Urine Appearance Clear Urine Specific [place] 1.015 1.010-1.030 Urine pH 6.00 5-9 Urine Urobilinogen Negative Negative Urine Ketones Negative Negative Urine Protein 2+(100 mg/dL) Negative Urine Leukocytes Negative Negative Urine Blood 3+ Negative Urine Nitrite Negative Negative Urine Bilirubin Negative Negative Urine Glucose Negative Negative Urine White Blood Cell 1+(6-10/hpf) Absent Urine Red Blood Cell 3+(>10/hpf) Absent Urine Bacteria Absent Absent Urine Squamous Epithelial Cell Present Absent Urine Hyaline Casts Present Absent CBC Electronic (Fma) 03/07/2013 WBC 6.4 3.6-9.6 RBC 5.03 3.90-5.70 Hemoglobin (Fma/CMC/CTX) 15.1 g/dL 12.1 - 17.2 Hematocrit (Fma/CMC/CTX) 45.4 % 36.1 - 50.3 Platelets 188 10^3/ul 150-400 Lymph% 42.2 20.5-51.1 Mixed% 5.4 Neutrophils % 52.4 Mean Corpuscular Vol 90 82.2-97.4 Mean Corpuscular Hemoglobin 30.0 27.6-33.3 Mean Corpuscular Hemo Concen 33.2 32.0-36.0 RDW 12.3 11.6-13.7 Mean Platelet Volume 7.0 6.5-11.0 Comprehensive Metabolic Prof 03/07/2013 Albumin 4.7 g/dL 3.8-5.5 Alk. Phos. 77 U/L 22-95 Alt (SGPT) 35 U/L 10-40 Ast (Sgot) 34 U/L 5-34 BUN 21 mg/dL 6-26 Calcium 9.5 mg/dL 8.6-10.2 Chloride 103 mEq/L 94-112 Creatinine 0.9 mg/dL 0.6-1.4 Carbon Dioxide 29 mEq/L 21-32 Glucose 95 mg/dL 70-105 Sodium 144 mEq/L 134-149 Total Bilirubin 0.5 mg/dL 0.2-1.3 Total Protein 7.2 g/dL 6.3-8.1 Potassium 4.7 mEq/L 3.6-5.5 Globulin 2.6 g/dL 2.0-4.8 A/G Ratio 1.8 Calc 0.6-2.3 BUN/Creat Ratio 23.3 Calc 8.0-36.0 Lipid Profile 03/07/2013 Cholesterol 192 mg/dL 120-200 HDL 32 mg/dL 30-70 Triglycerides 135 mg/dL 30-200 HDL Risk Factor 5.9 CALC High 0.0-4.4 LDL (Calculated) 133 CALC High 0-129 VLDL (Calculated) 27 mg/dL 0-50 Ua - Non Micro (Fma) 03/07/2013 Appearance CLEAR Color YELLOW Glucose, Urine (Fma/CMC/CTX) NEG Bilirubin NEG Ketones NEG SP Grav >=1.030 Blood NEG PH 6.0 Protein SSA:NEG Urobil 0.2 Nitrite NEG Leukocytes (Fma/CMC/[facility]) NEG Laboratory test finding 03/07/2013 PSA 0.30 ng/mL 0.00-4.00 Wound Culture/Sensi 04/04/2012 Wound/Misc Culture-Gram (SEE NOTE) 7 Stain Comp Metabolic Panel 09/25/2011 Sodium 135 mmol/L 135-145 Potassium 3.8 mmol/L 3.5-5.0 Chloride 103 mmol/L 101-111 Co2 (Carbon Dioxide) 24.0 mmol/L 22-32 Anion Gap 8.0 mmol/L 2-11 8 Glucose 93 mg/dL 70-100 BUN 16 mg/dL 6-24 Creatinine 1.4 mg/dL 0.50-1.40 One Over Creatinine 0.71 BUN/Creatinine Ratio 11.4 8-20 Calcium 8.1 mg/dL 8.1-9.9 Total Protein 6.8 GM/DL 6.2-8.1 Albumin 3.4 GM/DL 3.2-5.2 Globulin 3.4 GM/DL 2-4 Albumin/Globulin Ratio 1.0 1-3 Bilirubin Total 1.0 mg/dL 0.4-1.5 9 Alkaline Phosphatase 75 U/L 39-117 Alt (SGPT) 23 U/L 17-63 Ast (Sgot) 27 U/L 12-42 eGFR Non- 51.0 > 60 eGFR 65.6 > 60 10 CBC Auto Diff 09/25/2011 White Blood Count 20.1 CUMM High 4.8-10.8 Red Cell Count 4.55 CUMM Low 4.6-6.2 Hemoglobin 14.0 g/dL 14.0-18.0 Hematocrit 40 % Low 42-52 Mean Corpuscular Volume 87 um3 80-94 Mean Corpuscular Hemoglob 31 pg 27-31 Mean Corpuscular HGB Cone 35 g/dL 32-36 Redcell Distribution WDTH 14 % 10.5-15 Platelet Count 151 CUMM 150-450 Mean Platelet Volume 7.8 um3 7.4-10.4 Absolute Neutrophil Count 15.9 High 1.5-7.7 11 Manual Differential 09/25/2011 Polysegmented Neutrophil 80 % 38-83 Band Neutrophil 9 % High 0-8 Lymphocyte 8 % Low 25-47 Monocyte 3 % 0-13 RBC Morphology NORMAL CBC Electronic (Fma) 09/25/2011 WBC 18.0 High 3.6-9.6 RBC 4.84 3.90-5.70 Hemoglobin (Fma/CMC/CTX) 14.5 g/dL 12.1 - 17.2 Hematocrit (Fma/CMC/CTX) 42.5 % 36.1 - 50.3 Platelets 184 10^3/ul 150-400 Lymph% 9.6 Low 20.5-51.1 Mixed% 3.9 Neutrophils % 86.5 Mean Corpuscular Vol 88 82.2-97.4 Mean Corpuscular Hemoglobin 29.9 27.6-33.3 Mean Corpuscular Hemo Concen 34.0 32.0-36.0 RDW 12.1 11.6-13.7 Mean Platelet Volume 6.9 6.5-11.0 Lipid Profile 10/16/2010 Cholesterol 184 mg/dL 120-200 HDL 29 mg/dL Low 30-70 12 Triglycerides 318 mg/dL High 30-200 HDL Risk Factor 6.3 CALC High 0.0-4.0 LDL (Calculated) 91 CALC 0-129 13 VLDL (Calculated) 64 mg/dL High 0-50 Laboratory test finding 10/16/2010 PSA 0.20 ng/mL 0.00-4.00 LDL (Direct) 83 mg/dL 0-130 Protein Elect Serum 10/16/2010 Protein Elect Serum SEE BELOW 14 Graph Report TO FOLLOW 14 Albumin 3.7 g/dL 3.2-5.6 14 Alpha 1 Globulin, Serum 0.2 g/dL 0.1-0.4 14 Alpha 2 Globulin, Serum 0.9 g/dL 0.4-1.2 14 Beta Globulin, Serum 1.2 g/dL 0.6-1.3 14 Gamma Globulin 1.0 g/dL 0.5-1.6 14 M-Erlin Gamma NOT OBSERVED g/dL Not Observed 14 M-Erlin Beta NOT OBSERVED g/dL Not Observed 14 Globulin,Total 3.3 g/dL 2.0-4.5 14 A/G Ratio 1.1 0.7-2.0 14 Protein, Total 6.9 g/dL 6.4-8.3 14 Interpretation, Serum SEE COMMENT 14, 15 Ua - Non Micro (Fma) 10/16/2010 Appearance CLEAR Color YELLOW Glucose, Urine (Fma/CMC/CTX) NEG Bilirubin NEG Ketones NEG SP Grav >1.030 Blood NEG PH 5.5 Protein NEG Urobil 0.2 Nitrite NEG Leukocytes (Fma/CMC/[facility]) NEG Laboratory test finding 07/29/2010 TSH 2.87 mIU/L 0.50-6.00 B12 530 pg/mL 230-1050 Ferritin 97 ng/mL 22-415 Folate >22.00 ng/mL High 3.00-16.00 Iron 75 g/dL 60-150 Comprehensive Metabolic Prof 07/29/2010 Albumin 4.4 g/dL 3.8-5.5 Alk. Phos. 87 U/L 22-95 Alt (SGPT) 32 U/L 10-40 Ast (Sgot) 34 U/L 5-34 BUN 18 mg/dL 6-26 Calcium 9.9 mg/dL 8.6-10.2 Chloride 103 mEq/L 94-112 Creatinine 1.0 mg/dL 0.6-1.4 Carbon Dioxide 26 mEq/L 21-32 Glucose 96 mg/dL 70-105 Sodium 144 mEq/L 134-149 Total Bilirubin 0.4 mg/dL 0.2-1.3 Total Protein 7.0 g/dL 6.3-8.1 Potassium 4.5 mEq/L 3.6-5.5 Globulin 2.6 g/dL 2.0-4.8 A/G Ratio 1.7 Calc 0.6-2.2 BUN/Creat Ratio 18.5 Calc 8.0-36.0 CBC Manual Diff-[facility] 07/29/2010 WBC 5.8 3.6-9.6 RBC 4.76 3.90-5.70 Hemoglobin (Fma/CMC/CTX) 14.9 g/dL 12.1 - 17.2 Hematocrit (Fma/CMC/CTX) 42.3 % 36.1 - 50.3 Mean Corpuscular Vol 89 82.2-97.4 Mean Corpuscular Hemoglobin 31.2 27.6-33.3 Mean Corpuscular Hemo Concen 35.0 32.0-36.0 Platelets 198 10^3/ul 150-400 RDW 12.4 11.6-13.7 Mean Platelet Volume 7.6 6.5-11.0 Neutrophil 39 Band 3 Lymphocytes 37 Monocyte 7 Eosinophils 3 Atypical Lymph 11 Z#Comment rbc/plt normal Laboratory test finding 11/08/2008 PSA 0.20 ng/mL 0.00-4.00 16 Lipid Profile 11/08/2008 Cholesterol 195 mg/dL 120-200 16 HDL 33 mg/dL 30-70 16 Triglycerides 173 mg/dL 30-200 16 HDL Risk Factor 6.0 CALC 4.2-7.0 16 LDL (Calculated) 127 CALC 0-129 16 VLDL (Calculated) 35 mg/dL 0-50 16 Ua - Non Micro ([facility]) 11/08/2008 Appearance CLEAR Color YELLOW Glucose, Urine (a/CMC/CTX) NEG Bilirubin NEG Ketones TRACE SP Grav 1.020 Blood NEG PH 7.0 Protein NEG Urobil 0.2 Nitrite NEG Leukocytes (a/CMC/[facility]) NEG CBC ([facility]) 11/08/2008 WBC 7.0 3.6-9.6 RBC 5.29 3.90-5.70 Hemoglobin (Fma/CMC/CTX) 15.7 g/dL 12.1 - 17.2 Hematocrit (Fma/CMC/CTX) 45.9 % 36.1 - 50.3 Mean Corpuscular Vol 86.8 82.2-97.4 Mean Corpuscular Hemaglobin 29.7 27.6-33.3 Mean Corpuscular Hemo Concen 34.2 33.0-36.0 Platelets 187 10^3/ul 150-400 Lymph% 38.2 20.5-51.1 Mixed% 10.4 Neutrophils % 51.4 RDW 13.9 High 11.6-13.7 Mean Platelet Volume 10.0 7.4-10.4 Comprehensive Metabolic Prof 11/08/2008 Albumin 4.6 g/dL 3.8-5.5 16 Alk. Phos. 72 U/L 22-95 16 Alt (SGPT) 42 U/L High 10-40 16 Ast (Sgot) 37 U/L High 5-34 16 BUN 15 mg/dL 6-26 16 Calcium 9.2 mg/dL 8.6-10.2 16 Chloride 101 mEq/L 94-112 16 Creatinine 1.1 mg/dL 0.6-1.4 16 Carbon Dioxide 28 mEq/L 21-32 16 Glucose 71 mg/dL 70-105 16 Sodium 145 mEq/L 134-149 16 Total Bilirubin 0.6 mg/dL 0.2-1.3 16 Total Protein 7.7 g/dL 6.3-8.1 16 Potassium 4.5 mEq/L 3.6-5.5 16 Globulin 3.1 g/dL 2.0-4.8 16 A/G Ratio 1.5 Calc 0.6-2.2 16 BUN/Creat Ratio 13.1 Calc 8.0-36.0 16 CBC With Electronic Diff Stat 05/01/2007 White Blood Count 9.1 CUMM 4.8- 10.8 Abs Basophils 0 0-0.2 Abs Eosinophils 0.1 0-0.6 Absolute Neutrophil Count 5.5 1.5-7.7 Abs Lymphs 2.4 1.0-4.8 Abs Mononuclear 1.0 High 0-0.8 Basophil % 0.4 % 0-2 Hematocrit 48 % 42-52 Hemoglobin 15.9 g/dL 14.0-18.0 Eosinophil % 1.6 % 0-6 Gran % 60.2 % 38-83 Lymph % 26.5 % 20-45 Mean Corpuscular HGB Cone 34 g/dL 32-36 Mean Corpuscular Hemoglob 29 pg 27-31 Mean Corpuscular Volume 87 um3 80-94 Mean Platelet Volume 7.7 um3 7.4-10.4 Mononuclear % 11.3 % High 1-9 Platelet Count 241 CUMM 150-450 Red Cell Count 5.48 CUMM 4.6-6.2 Redcell Distribution WDTH 14 % 10.5-15 Protime 05/01/2007 Inr 0.93 17 Protime 11.7 10.9-13.3 PTT (Aptt) Stat 05/01/2007 PTT (Aptt) 24.4 20.4-29.5 18 Basic Metabolic Panel Stat 05/01/2007 One Over Creatinine 1.00 Anion Gap 9.0 mmol/L 2-11 19 BUN 16 mg/dL 6-24 Calcium 9.1 mg/dL 8.7-10.2 Chloride 104 mmol/L 101-111 Co2 (Carbon Dioxide) 27.0 mmol/L 22-32 Glucose 104 mg/dL 70-105 Potassium 3.8 mmol/L 3.5-5.0 Sodium 140 mmol/L 135-145 BUN/Creatinine Ratio 16.0 8-20 Creatinine 1.0 mg/dL 0.5-1.4 Laboratory test finding 05/01/2007 Troponin-I (TnI) 0.03 NG/ML 0-0.06 20 TSH 2.81 MIU/ML 0.34-5.60 Lipid Profile([facility]) 07/29/2005 Cholesterol 205 mg/dL High 120-200 Male ([facility]) Triglyceride 370 mg/dL High 30-200 HDL Cholesterol ([facility]) Male 29 mg/dL Low 30-70 LDL, Calculated ([facility]) INVALID CALC 0-129 LDL Direct ([facility]) 126 mg/dL 0-130 VLDL 74 High 0-50 HDL Risk Factor ([facility]) 7.2 CALC High 4.2-7.0 Laboratory test finding 07/29/2005 PSA ([facility]) 0.21 0.0-4.0 CBC Electronic ([facility]) 07/29/2005 WBC 7.0 3.6-9.6 Lymphocytes 35.2 % 20.5 - 51.1 Monocytes 8.9 % 1.7-9.3 Granulocytes 55.9 % 42.2 - 75.2 Lymphocytes 2.5 10^3/uL 0.7 - 4.9 Monocytes 0.6 10^3/uL 0.1 - 0.9 Granulocytes 3.9 10^3/uL 1.5 - 7.2 RBC 5.35 3.90-5.70 Hemoglobin (Fma/CMC/CTX) 16.1 g/dL 12.1 - 17.2 Hematocrit (Fma/CMC/CTX) 46.6 % 36.1 - 50.3 Mean Corpuscular Vol 87.1 82.2-97.4 Mean Corpuscular Hemaglobin 30.1 27.6-33.3 Mean Corpuscular Hemo Concen 34.6 33.0-36.0 RDW 12.8 11.6-13.7 Platelets 183. 10^3/ul 150-400 Mean Platelet Volume 7.2 Low 7.4-10.4 Ua - Non Micro (Fma) 07/29/2005 Appearance CLEAR Color YELLOW Glucose NEG Bilirubin NEG Ketones NEG SP Grav >=1.030 Blood NEG PH 5.5 Protein SSA NEG Urobil 0.2 Nitrite NEG Leukocytes NEG Laboratory test finding 07/29/2005 Hep B Surface Antigen NEGATIVE Negative 21 Hep C Abs 07/29/2005 Hep C Antibody NEGATIVE Negative 21 Comp Metabolic (Fma) Male 07/29/2005 Glucose, Serum 90 mg/dL 70-105 (Fma/CMC/CTX) BUN (Fma/CMC/[facility]) 18 mg/dL 6-26 Creatinine (Fma/CMC/CTX) 1.1 mg/dL 0.6-1.4 BUN/Creatinin Ratio 16.7 8.0-36 Sodium 141 134-149 Potassium 4.0 3.6-5.5 Chloride 103 mEq/L 94-112 Co2 28 21-32 Calcium (Fma/CMC/[facility]) 9.2 mg/dL 8.6-10.2 Total Protein 7.0 g/dL 6.3-8.1 Albumin (Fma/CMCC/[facility]) 4.4 3.8-5.5 Globulin 2.6 2.0-4.8 A/G Ratio (Fma/CMC/[facility]) 1.7 0.6-2.2 Alk Phos (Fma) Male 64 U/L 22-95 Alt-M SGPT Male (Fma) 40 10-40 Ast Sgot 34 U/L 5-34 Bilirubin, Total 0.6 mg/dL 0.2-1.3 CBC Electronic ([facility]) 12/06/2002 WBC 6.8 3.6-9.6 Lymphocytes 29.6 % 20.5 - 51.1 Monocytes 6.7 % 1.7-9.3 Granulocytes 63.7 % 42.2 - 75.2 Lymphocytes 2.0 10^3/uL 0.7 - 4.9 Monocytes 0.5 10^3/uL 0.1 - 0.9 Granulocytes 4.3 10^3/uL 1.5 - 7.2 RBC 4.68 3.90-5.70 Hemoglobin (a/CMC/CTX) 14.2 g/dL 12.1 - 17.2 Hematocrit (a/CMC/CTX) 42.4 % 36.1 - 50.3 Mean Corpuscular Vol 90.5 82.2-97.4 Mean Corpuscular Hemaglobin 30.4 27.6-33.3 Mean Corpuscular Hemo Concen 33.6 33.0-34.8 RDW 13.9 High 11.6-13.7 Platelets 200. 10^3/ul 150-400 Mean Platelet Volume 8.4 7.4-10.4 Comp Metabolic ([facility]) 12/06/2002 Glucose, Serum (a/CMC/CTX) 79 mg/dL 70- 118 BUN (a/CMC/[facility]) 19 mg/dL 7-26 Creatinine (a/CMC/CTX) 1.0 mg/dL 0.6-1.4 BUN/Creatinin Ratio 19.9 8.0-36 Sodium 143 134-149 Potassium 4.5 3.6-5.5 Chloride 104 mEq/L 94-112 Co2 25 21-32 Calcium (a/CMC/[facility]) 8.9 mg/dL 8.6-10.0 Total Protein 7.1 g/dL 6.3-8.1 Albumin ([facility]) 4.4 3.8-5.5 Globulin 2.7 2.0-4.8 A/G Ratio (a/CMC/[facility]) 1.6 0.6-2.2 Alkaline Phosphatase (F/C/CTX) 81 U/L 22-95 Alt (SGPT) 19 10-40 Ast (Sgot) ([facility]) 16 U/mL 5-34 Bilirubin, Total 0.4 mg/dL 0.2-1.3 Lipid Profile ([facility]) 12/06/2002 Cholesterol 160 mg/dL 120-200 Triglyceride 67 mg/dL 30-200 HDL-Chol 37 30-70 LDL-Calculated ([facility]) 109 CALC 0-129 VLDL 13 0-50 HDL Risk Factor ([facility]) 4.3 CALC 4.2-7.0 Laboratory test finding 12/06/2002 PSA 0.22 0.0-4.0 Ua - Non Micro ([facility] [place]) 12/06/2002 Appearance CLEAR YELLOW Glucose NEGATIVE Bilirubin NEGATIVE Ketones NEGATIVE SP Grav 1.025 Blood NEGATIVE PH 5.5 Protein NEGATIVE Urobil 0.2 Nitrite NEGATIVE Leukocytes NEGATIVE Laboratory test finding 09/16/2002 Sodium 136 mmol/L 135-145 Potassium 3.9 mmol/L 3.5-5.0 Chloride 105 mmol/L 101-111 Co2 26.0 mmol/L 22-32 BUN ([facility]) 24 mg/dL 6-24 Creatinine ([facility]/CTX) 1.3 mg/dL 0.5-1.4 Bilirubin, Total 0.6 mg/dL 0.4-1.5 Alt (SGPT) ([facility]) 37 17-63 Ast (Sgot) ([facility]) 34 12-42 Iron, Total ([facility]) 65 g/dL 45-182 Ferritin 228 NG/ML 24-336 TSH ([facility]) 1.64 0.34-5.60 B12 903 180-914 Folic Acid 11.6 NG/ML 2-16 CBC Electronic ([facility]) 09/16/2002 WBC 6.1 CUMM 4.8-10.8 RBC 4.75 CUMM 4.6-6.2 Hemoglobin (a/[facility]/CTX) 13.9 g/dL Low 14.0-18.0 Hematocrit (a/[facility]/CTX) 42 % 42-52 Mean Corpuscular Vol 89 UM3 80-94 Mean Corpuscular Hemaglobin 29 pg 27-31 Mean Corpuscular Hemo Concen 33 g/dL 32-36 RDW 13 10.5-15 Platelets 202 CUMM 150-450 Mean Platelet Volume 8.5 7.4-10.4 Granulocytes 50.7 % 38-83 Lymphocytes 38.8 % 20-45 Monocytes 7.6 % 1-9 Eosinophil 2.9 0-6 Basophil% 0 0-2 Abs Lymphs 2.4 1.0-4.8 Abs Mononuclear 0.5 0-0.8 Abs Grans 3.0 1.5-7.7 Abs Eosinophils 0.2 0-0.6 Abs Basophils 0 0-0.2 Free T4/TSH Profile (a) 07/15/2000 Free T4 0.74 ng/dL 0.7-1.55 TSH 2.36 0.4-4.2 Folic Acid/B12 Panel 07/14/2000 Folic Acid 12.8 >=3.0 B12 455 181-914 B12 + Folate (Group) 07/14/2000 Folic Acid(Folate)Serum 12.8 ng/ml 22 Vitamin B-12 455 pg/mL 0.0 - 0.0 23 Lipid Profile ([facility]) 01/22/2000 Cholesterol 182 mg/dL 140-200 Triglyceride 296 mg/dL High 30-150 HDL-Chol 24.5 mg/dL Low 30-70 VLDL 59 mg/dL 0-50 LDL-Calculated INVALID 0-160 Laboratory test finding 01/22/2000 LDL, Direct 92 mg/dL 0-130 CBC With Diff ([facility]) 01/22/2000 WBC 5.9 /Hpf 3.6 - 9.6 Lymphocytes 39.5 % 20.5 - 51.1 Monocytes 4.8 % 1.7 - 9.3 Granulocytes 55.7 % 42.2 - 75.2 Lymphocytes 2.3 10^3/uL 0.7 - 4.9 Monocytes 0.3 10^3/uL 0.1 - 0.9 Granulocytes 3.3 10^3/uL 1.5 - 7.2 RBC 5.35 /Hpf 3.90 - 5.70 Hemoglobin 16.6 g/dL 12.1 - 17.2 Hematocrit 48.2 % 36.1 - 50.3 Mean Corpuscular Vol 90.2 fl 82.2 - 97.4 Mean Corpuscular Hemaglobin 31.1 pg 27.6 - 33.3 Mean Corpuscular Hemo Concen 34.5 g/dL 33.0 - 34.8 RDW 13.0 % 11.6 - 13.7 Platelets 167 10^3/ul 150-400 Mean Platelet Volume 8.5 fl 7.4 - 10.4 Laboratory test finding 01/22/2000 PSA 0.3 NG/ML 0.0-4.0 Comp Metabolic (Fma) 01/22/2000 Albumin 4.2 GM/DL 3.80 - 5.50 Alkaline Phosphatase 66 U/L 39-130 Bilirubin, Total 0.6 mg/dL 0.2-1.3 BUN 18 mg/dL 10-26 Calcium 8.1 mg/dL 7.4-9.2 Creatinine 1.0 mg/dL 0.6-1.4 Glucose 89 mg/dL 70 - 118 Ast Sgot 28 U/L 9-44 Alt (SGPT) 37 U/L 10-40 Total Protein 7.3 g/dL 6.3-8.1 Sodium 140 Potassium 4.7 mEq/L 3.6-5.5 Chloride 101 mEq/L 94-112 Co2 28 21-32 Globulin 3.1 2.0-4.8 Albumin / Globulin Ratio 1.4 0.6-2.2 BUN/Creatinin Ratio 18.0 8.0-36 Ua - Non Micro ([facility]ma New) 01/21/2000 Appearance CLEAR YELLOW Glucose - Bilirubin - Ketones - SP Grav >=1.030 Blood - PH 6.0 Protein - Urobil 0.2 Nitrite - Leukocytes - 1 [place] Severe Sepsis and Septic Shock Management Bundle Measure requires all lactic acids initially measuring >2.0 mmol/L be repeated. 2 Because ethnic data is not always readily available, this report includes an eGFR for both -Americans and non- Americans. The National Kidney Disease Education Program (NKDEP) does not endorse the use of the MDRD equation for patients that are not between the ages of 18 and 70, are , have extremes of body size, muscle mass, or nutritional status, or are non- or non-. According to the National Kidney Foundation, irrespective of diagnosis, the stage of the disease is based on the level of kidney function: Stage Description GFR(mL/min/1.73 m(2)) 1 Kidney damage with normal or decreased GFR 90 2 Kidney damage with mild decrease in GFR 60-89 3 Moderate decrease in GFR 30-59 4 Severe decrease in GFR 15-29 5 Kidney failure <15 (or dialysis) 3 consistent w/ previous results 4 [facility] billing correction for dx of 333.94 for fe/tibc sent in 790.09 abnormal red cells 5 Acute inflammation: >10.00 6 Because ethnic data is not always readily available, this report includes an eGFR for both -Americans and non- Americans. The National Kidney Disease Education Program (NKDEP) does not endorse the use of the MDRD equation for patients that are not between the ages of 18 and 70, are , have extremes of body size, muscle mass, or nutritional status, or are non- or non-. According to the National Kidney Foundation, irrespective of diagnosis, the stage of the disease is based on the level of kidney function: Stage Description GFR(mL/min/1.73 m(2)) 1 Kidney damage with normal or decreased GFR 90 2 Kidney damage with mild decrease in GFR 60-89 3 Moderate decrease in GFR 30-59 4 Severe decrease in GFR 15-29 5 Kidney failure <15 (or dialysis) 7 RUN DATE: 04/07/12 [facility] LAB LIVE PAGE 1 RUN TIME: [address] [place], [place] [address] Specimen Inquiry Name: ELTONDEVONGEO : [address]: Cornelius Hancock MD Acct: [id number] Unit: [id number] AGE: 67 Location: ED Re04/04/12 SEX: M Status: DEP ER SPEC: [id number] MADELINE: 04/04/[address]: Elliott DUBONOdellen REQ: [id number] RECD: 04/04/12 STATUS: LEONARDO CAPONE DR: Rafita Saldivar MD,Cornelius Jenkins MD,Waldemar _ SOURCE: ABDOMEN SPDESC: ORDERED: Culture Stain Procedure Result Verified Site Wound/Misc Gram Stain Final 04/04/12- 1256 ML 1+ Epithelial Cells No Polys Observed No Organisms Seen Wound/Misc Culture Final 04/07/12- 1004 ML Organism 1 NORMAL AKASH Quantity 2+ END OF REPORT * ML=Testing performed at Main Lab DEPARTMENT OF PATHOLOGY, [address] [place] [address] Eric Quinn M.D. Director [facility] Permit #[id number] 8 Anion gap measurement may be of limited value in the presence of any alkalosis, especially in a combined acid base disorder. . 9 A metabolite of Naproxen, O-desmethylnaproxen, has been shown to interfere with the [place] method for measuring total bilirubin. Samples from patients who have taken Naproxen have shown spurious elevation in total bilirubin levels. 10 Because ethnic data is not always readily available, this report includes an eGFR for both -Americans and non- Americans. The National Kidney Disease Education Program (NKDEP) does not endorse the use of the MDRD equation for patients that are not between the ages of 18 and 70, are , have extremes of body size, muscle mass, or nutritional status, or are non- or non-. According to the National Kidney Foundation, irrespective of diagnosis, the stage of the disease is based on the level of kidney function: Stage Description GFR(mL/min/1.73 m(2)) 1 Kidney damage with normal or decreased GFR 90 2 Kidney damage with mild decrease in GFR 60-89 3 Moderate decrease in GFR 30-59 4 Severe decrease in GFR 15-29 5 Kidney failure <15 (or dialysis) 11 Lymphopenia % 12 RESULT RIGO'D 13 invalid 14 1 SST TUBE 15 Normal serum protein electrophoresis. 16 FASTING 17 ANNETTE VALUE=2.01 ( OF 04/02/07 Recommended INR for Patients on Oral Anticoagulants Prophylaxis 2.0 - 3.0 Treatment of thrombosis 2.0 - 3.0 Prevention of embolism 2.0 - 3.0 Prevention of embolism from prosthetic heart valves 2.5 - 3.5 18 PLEASE NOTE NEW REFERENCE RANGE EFFECTIVE 05 19 Anion gap measurement may be of limited value in the presence of any alkalosis, especially in a combined acid base disorder. . 20 New Reference Range and Interpretation effective 01/28/02 TnI (ng/ml) INTERPRETATION <0.06 ng/ml NOT SUPPORTIVE OF DIAGNOSIS OF [place] 0.06 - 0.50 ng/ml INDETERMINATE: SUGGEST SERIAL STUDIES IF CLINICALLY INDICATED. > 0.5 ng/ml CONSISTENT WITH DIAGNOSIS OF [place] . 21 FASTING; 1 SST TUBE 22 . Greater than or equal to 3.0 is normal. . Effective 08-30-1999 please note change in Reference range due to change in instrumentation. . 23 Deficient (Low): <145 pg/ml Indeterminate: 145-180 pg/ml Normal: 181-914 pg/ml . Procedures Date CPT Code Description Status Comment 10/16/2010 49640 Electrocardiogram Complete Completed 07/29/2005 02495 Electrocardiogram Complete Completed 07/26/2005 Colonoscopy Completed repeat 10 years 02/17/2000 77449 Sigmoidoscopy Diagnostic Completed 01/21/2000 70789 Electrocardiogram Complete Completed Encounters Type Date Location Provider CPT E/M Dx Office Visit 05/15/2017 1:00p Main Office Waldemar Joiner 12755 L03.116 Office Visit 05/11/2017 1:00p [facility] Waldemar Joiner 34327 L03.116 MD Office Visit 08/18/2016 8:10a Main Office Waldemar Jenkins 67704 L97.911 Yovani M54.5 I10 G56.03 R21 Office Visit 06/13/2016 11:00a Main Office Waldemar Jenkins M.D. 61839 L03.115 Office Visit 03/05/2016 10:10a Main Office Waldemar Jenkins M.D. 67648 L03.115 Office Visit 02/27/2016 11:10a Main Office Waldemar Jenkins M.D. 45999 Z23 L03.115 Office Visit 02/19/2016 11:10a [facility] Waldemar Jenkins M.D. 19934 L03.115 Office Visit 07/11/2015 1:40p Main Office Waldemar Jenkins M.D. 27713 M54.5 Office Visit 12/18/2014 9:20a Main Office Waldemar Jenkins M.D. 89236 401.1 719.89 Office Visit 09/14/2014 9:00a Main Office Waldemar Jenkins M.D. 62223 401.1 337.1 333.94 272.1 Office Visit 08/21/2014 11:20a [facility] Waldemar Jenkins M.D. 47443 401.1 333.94 337.1 Office Visit 11/16/2013 2:00p [facility] Waldemar Jenkins M.D. 39946 729.5 Office Visit 07/18/2013 10:10a [facility] Waldemar Jenkins M.D. 33216 466.0 Office Visit 04/07/2012 1:10p [facility] Waldemar Jenkins M.D. 84430 782.1 Office Visit 10/20/2011 9:40a [facility] Waldemar Jenkins M.D. 11020 682.5 354.0 Office Visit 10/13/2011 9:00a [facility] Waldemar Jenkins M.D. 65140 682.5 Office Visit 10/08/2011 9:40a [facility] Waldemar Jenkins M.D. 57371 682.5 Office Visit 09/25/2011 1:00p [facility] Charla BrownRoni-C 00011 682.5 Office Visit 08/18/2011 1:30p [facility] Office Veronica GarcíaRoni juan-C 18412 464.00 327.23 Office Visit 07/10/2011 3:30p [facility] Office Barbara Santillan M.D. 60519 382.9 Office Visit 06/09/2011 11:00a [facility] Waldemar Jenkins M.D. 90781 380.22 Office Visit 04/14/2011 9:20a [facility] Waldemar Jenkins M.D. 07261 V72.83 V70.3 724.5 333.94 327.21 Office Visit 10/16/2010 2:20p [facility] Office Waldemar Jenkins M.D. 19538 V70.0 272.4 724.5 782.0 272.1 Office Visit 08/19/2010 6:00p Main Office Lety Edgar [facility] 06336 873.0 V58.32 Office Visit 07/29/2010 9:20a [facility] Office Waldemar Jenkins M.D. 70396 333.94 719.49 333.99 780.79 Office Visit 01/07/2010 1:20p [facility] Waldemar Jenkins M.D. 49228 719.41 333.94 327.21 V72.83 Office Visit 05/15/2009 9:40a [facility] Waldemar Jenkins M.D. 73683 V04.81 729.5 V72.83 Office Visit 03/26/2009 9:00a [facility] Office Waldemar Jenkins M.D. 84452 844.8 729.5 380.22 333.94 Office Visit 01/09/2009 1:30p [facility] Johnsonnp-C 59686 844.8 V04.81 Office Visit 11/08/2008 3:20p [facility] Waldemar Jenkins M.D. 86978 401.1 V76.44 V77.91 V70.0 Office Visit 08/25/2008 11:00a [facility] Waldemar Jenkins M.D. 61497 724.5 401.1 719.47 719.41 782.1 333.94 327.21 Office Visit 12/28/2007 4:00p [facility] Waldemar Jenkins M.D. 52529 724.5 Office Visit 08/28/2006 3:10p [facility] Waldemar Jenkins M.D. 26125 401.1 Office Visit 06/29/2006 3:40p [facility] Waldemar Jenkins M.D. 45141 735.2 Office Visit 05/20/2006 2:20p [facility] Waldemar Jenkins M.D. 44377 719.47 780.57 V72.83 Office Visit 03/30/2006 10:10a [facility] Office Waldemar Jenkins M.D. 09354 724.2 Office Visit 12/09/2005 4:10p [facility] Waldemar Jenkins M.D. 57639 723.4 Office Visit 07/29/2005 8:10a [facility] Waldemar Jenkins M.D. 61590 272.0 V70.0 V76.44 705.81 V77.91 Office Visit 07/23/2005 11:00a [facility] Office Bobby Gonzalez M.D. 85017 705.81 Office Visit 03/24/2005 11:20a [facility] Office Bobby Gonzalez M.D. 10904 719.41 723.1 Office Visit 09/11/2004 8:00a Main Office Waldemar Jenkins M.D. 08573 Office Visit 04/05/2004 4:10p [facility] Waldemar Jenkins M.D. 24098 719.41 Office Visit 12/06/2002 10:20a [facility] Waldemar Jenkins M.D. 42735 V70.0 782.0 719.41 V82.9 Office Visit 09/30/2002 10:00a [facility] Waldemar Jenkins M.D. 55436 786.51 Office Visit 09/05/2002 11:20a Main Office Waldemar Jenkins M.D. 52877 719.41 692.9 333.99 Office Visit 05/23/2002 2:40p [facility] Jackson Flores M.D. 41167 807.00 Office Visit 01/04/2002 9:20a [facility] Waldemar Jenkins M.D. 95099 Office Visit 11/08/2001 8:40a Main Office Waldemar Jenkins M.D. 58591 Office Visit 06/21/2001 10:10a Main Office Waldemar Jenkins M.D. 65878 Office Visit 05/19/2001 2:20p Main Office Waldemar Jenkins M.D. 26857 Office Visit 11/20/2000 11:20a [facility] Gonzalo Abel M.D. 70198 Office Visit 01/21/2000 10:20a [facility] Waldemar Jenkins M.D. 48473 Plan of Care 06/16/2017 - Veronica Remy, Roni-CH61.22 Impacted cerumen, left earComments: careful with q tips this may be a result irrigated with tepid h20 without benefitFollow up:Followup:. (Follow up)H91.93 Unspecified hearing loss, bilateralAllComments:~B_~U_Medication Management~b_~u_ Patient Understands medications he's taking? Yes No Are there Barriers to Adherence? Yes No Has the patient been asked about herbal supplements and therapies, and OTC meds? Yes No ~B_~U_Care Plan~b_~u_1. Patient has been queried about patient's goals/preferences and functional/lifestyle goals at relevant visits. If relevant, describe: na2. Treatment goals as explained to the patient: aboveear wax removal and further assessment of hearing loss3. Are there barriers to meeting treatment goals? Yes No If Yes, please describe:4. Self-Management goals as described to the patient: Yes No in case this problem is related to your eustachian tube , you can try an otc nasal spray like flonase for a few weeks to see if that helpsI will make a referral to ent to help remove the wax and further assess your hearing
[2017-07-06] MEDS ORDERED: Vancomycin(*) 1,000 MG in NS 0.9% 250 ML* 250 ML IVPB ONE (01:55)
[2017-07-06 02:26] LABS: Hematocrit 40 % (42-52); Hemoglobin 13.2 g/dl (14.0-18.0); Mean Corpuscular HGB Conc 33 g/dl (31-36); Mean Corpuscular Hemoglobin 29 pg (27-31); Mean Corpuscular Volume 86 fL (80-94); Mean Platelet Volume 8 um3 (7.4-10.4); Platelet Count 154 10^3/ul (150-450); Red Blood Count 4.59 10^6/ul (4.0-5.4); Red Cell Distribution Width 15 % (10.5-15)
--- NOTE | 2017-07-06 02:36 | HP ---
H&P (Free Text) History and Physical: PCP: Mehreen Jenkins MD Date/Time: 07/05/2017 0400 CC: blisters on feet HPI: Mr Suggs is a very pleasant 72YO male HX BLE venous stasis who reports onset of "flu-like" symptoms Thursday consisting of arthralgias, headache, dry cough, & profuse sweats. He denies subjective F/C, N/V, diarrhea, chest pain, SOB, light-headedness, or other issues. Thursday evening he noted blood on his R sock and inspected his feet which had become painful revealing a ruptured blister on the dorsum of his L foot at the base of his 2nd/3rd toes. Similarly he also found a ruptured blister on the medial aspect of his R foot at the base of his 1st toe. He has chronic venous stasis and wraps his lower extremities every other day. He has established with a gis analyst within the last week prior to this occurring. PMedHx chronic BLE venous stasis restless leg syndrome peripheral neuropathy Ambulatory Orders Amitriptyline TAB* [Elavil TAB*] 25 mg PO BEDTIME 04/04/12 traMADol TAB* [Ultram*] 50 mg PO Q6HR PRN 04/04/12 Atenolol TAB* [Tenormin TAB*] 50 mg PO BEDTIME 03/06/15 Pregabalin CAP(*) [Lyrica CAP(*)] 1 tab PO TID 03/06/15 Furosemide [Furosemide] 20 mg PO QID PRN 07/06/17 Pramipexole TAB* [Mirapex TAB*] 0.75 mg PO BEDTIME 07/06/17 Allergies Penicillins Adverse Reaction (Mild, Verified 07/06/17 02:42) GI Upset BEE STINGS Allergy (Severe, Uncoded 07/06/17 02:42) ANAPHYLACTIC WHITE FACED HORNETS AND YELLOW JACKETS PSurgHx B TKA 2 replaced joints L foot 3 R shoulder surgeries laminectomy tonsillectomy B carpal tunnel release SocHx: no tobacco, alcohol, or recreational drugs; lives with his ; 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; full code status FamHx: reviewed, non-contributory ROS: as above, otherwise reviewed and all were negative vitals: Vital Signs Temp 35.5 C 07/06/17 00:51 Pulse 65 03/12/18 04:00 Resp 20 07/06/17 00:51 BP 188/85 07/06/17 04:00 Pulse Ox 95 07/06/17 04:00 Intake & Output 07/05/17 07/05/17 07/06/17 11:59 23:59 11:59 Intake Total 250 Balance 250 Weight 133.81 kg Intake: IV Fluids 250 Constitutional: NAD, normally developed, obese white male HEENM: atraumatic; sclera/conjunctiva: anicteric/clear; hearing: clinically intact; oropharynx: clear, mucosa moist Neck: soft tissue: non-tender; thyroid: normal Pulmonary: clear to auscultation bilaterally, good aeration, no accessory muscle use CV: RR/RR, normal S1S2, no carotid bruit, no jugular venous distention, 2+ B DP/ PT, 1+ BLE edema Abdominal: soft, non-distended, non-tender, no rebound/guarding/rigidity, normoactive bowel sounds, no hepatosplenomegaly or masses, no costovertebral angle tenderness Musculoskeletal: general: grossly intact, no tenderness w/ palpation; chronic medial deviation of L 2nd/3rd toes Integumental: chronic BLE erythema & hyperkeratosis with acute erythema & swelling B feet, medial aspect of R foot at base of 1st toe with ruptured bullae , dorsum of L foot at base of 2nd/3rd toes with similar ruptured bullae, positive malodor, mild serosanguinous drainage Psychiatric orientation: AA&O to PPA affect: happy mood: very pleasant eye contact: good content: reliable responses: timely insight: good Testing: Lab Results 07/06/17 07/06/17 07/06/17 Range/Units 02:00 02:00 02:00 WBC 18.0 H (3.5-10.8) 10^3/ul RBC 4.59 (4.0-5.4) 10^6/ul Hgb 13.2 L (14.0-18.0) g/dl Hct 40 L (42-52) % MCV 86 (80-94) fL MCH 29 (27-31) pg MCHC 33 (31-36) g/dl RDW 15 (10.5-15) % Plt Count 154 (150-450) 10^3/ul MPV 8 (7.4-10.4) um3 Neut % (Auto) 73.8 (38-83) % Lymph % (Auto) 12.0 L (25-47) % [place] % (Auto) 9.8 H (0-7) % Eos % (Auto) 3.7 (0-6) % Baso % (Auto) 0.7 (0-2) % Absolute Neuts (auto) 13.2 H (1.5-7.7) 10^3/ul Absolute Lymphs (auto) 2.2 (1.0-4.8) 10^3/ul Absolute Monos (auto) 1.8 H (0-0.8) 10^3/ul Absolute Eos (auto) 0.7 H (0-0.6) 10^3/ul Absolute Basos (auto) 0.1 (0-0.2) 10^3/ul Absolute Nucleated RBC 0 10^3/ul Nucleated RBC % 0 INR (Anticoag Therapy) 1.24 H (0.77-1.02) APTT 35.2 (26.0-36.3) seconds Sodium 133 (133-145) mmol/L Potassium 3.3 L (3.5-5.0) mmol/L Chloride 100 L (101-111) mmol/L Carbon Dioxide 25 (22-32) mmol/L Anion Gap 8 (2-11) mmol/L BUN 24 (6-24) mg/dL Creatinine 1.25 H (0.67-1.17) mg/dL Est GFR ( Amer) 73.4 (>60) Est GFR (Non-Af Amer) 57.1 (>60) BUN/Creatinine Ratio 19.2 (8-20) Glucose 110 H (70-100) mg/dL Lactic Acid (0.5-2.0) mmol/L Calcium 8.9 (8.6-10.3) mg/dL Total Bilirubin 0.60 (0.2-1.0) mg/dL AST 19 (13-39) U/L ALT 16 (7-52) U/L Alkaline Phosphatase 74 (34-104) U/L C-Reactive Protein 256.72 H (< 5.00) mg/L Total Protein 7.8 (6.4-8.9) g/dL Albumin 3.4 (3.2-5.2) g/dL Globulin 4.4 H (2-4) g/dL Albumin/Globulin Ratio 0.8 L (1-3) Urine Color Urine Appearance Urine pH (5-9) Ur Specific [place] (1.010-1.030) Urine Protein (Negative) Urine Ketones (Negative) Urine Blood (Negative) Urine Nitrate (Negative) Urine Bilirubin (Negative) Urine Urobilinogen (Negative) Ur Leukocyte Esterase (Negative) Urine WBC (Auto) (Absent) Urine RBC (Auto) (Absent) Ur Squamous Epith Cells (Absent) Urine Bacteria (Absent) Urine Glucose (Negative) 07/06/17 07/06/17 Range/Units 02:00 03:36 WBC (3.5-10.8) 10^3/ul RBC (4.0-5.4) 10^6/ul Hgb (14.0-18.0) g/dl Hct (42-52) % MCV (80-94) fL MCH (27-31) pg MCHC (31-36) g/dl RDW (10.5-15) % Plt Count (150-450) 10^3/ul MPV (7.4-10.4) um3 Neut % (Auto) (38-83) % Lymph % (Auto) (25-47) % [place] % (Auto) (0-7) % Eos % (Auto) (0-6) % Baso % (Auto) (0-2) % Absolute Neuts (auto) (1.5-7.7) 10^3/ul Absolute Lymphs (auto) (1.0-4.8) 10^3/ul Absolute Monos (auto) (0-0.8) 10^3/ul Absolute Eos (auto) (0-0.6) 10^3/ul Absolute Basos (auto) (0-0.2) 10^3/ul Absolute Nucleated RBC 10^3/ul Nucleated RBC % INR (Anticoag Therapy) (0.77-1.02) APTT (26.0-36.3) seconds Sodium (133-145) mmol/L Potassium (3.5-5.0) mmol/L Chloride (101-111) mmol/L Carbon Dioxide (22-32) mmol/L Anion Gap (2-11) mmol/L BUN (6-24) mg/dL Creatinine (0.67-1.17) mg/dL Est GFR ( Amer) (>60) Est GFR (Non-Af Amer) (>60) BUN/Creatinine Ratio (8-20) Glucose (70-100) mg/dL Lactic Acid 0.9 (0.5-2.0) mmol/L Calcium (8.6-10.3) mg/dL Total Bilirubin (0.2-1.0) mg/dL AST (13-39) U/L ALT (7-52) U/L Alkaline Phosphatase (34-104) U/L C-Reactive Protein (< 5.00) mg/L Total Protein (6.4-8.9) g/dL Albumin (3.2-5.2) g/dL Globulin (2-4) g/dL Albumin/Globulin Ratio (1-3) Urine Color Nicky Urine Appearance Clear Urine pH 5.0 (5-9) Ur Specific [place] 1.034 H (1.010-1.030) Urine Protein 2+(100 mg/dl) A (Negative) Urine Ketones Negative (Negative) Urine Blood 1+ A (Negative) Urine Nitrate Negative (Negative) Urine Bilirubin Negative (Negative) Urine Urobilinogen Positive A (Negative) Ur Leukocyte Esterase Negative (Negative) Urine WBC (Auto) Trace(0-5/hpf) (Absent) Urine RBC (Auto) Absent (Absent) Ur Squamous Epith Cells Present A (Absent) Urine Bacteria Absent (Absent) Urine Glucose Negative (Negative) Impression: 72M HX chronic venous stasis presents with acute cellulitis of B feet DIAGNOSIS & PLAN Primary cellulitis B feet : initiated on vancomycin & piperacillin/tazobactam in ED; will continue on vancomycin & cefepime pending CX : blood & wound CXs : pain control : supportive care Secondary RLS : continue ropinirole peripheral neuropathy : continue gabapentin, amitriptyline, & tramadol Admission Rational: inpatient for B foot cellulitis not anticipated to improve adequately w/i 48h to allow for discharge DVTp: heparin SQ Code Status: full HCP:
[2017-07-06 02:42] LABS: EGFR Non-African American 57.1 (>60)
[2017-07-06 02:44] LABS: ABS Basophils 0.1 10^3/ul (0-0.2); ABS Eosinophils 0.7 10^3/ul (0-0.6); ABS Lymphocytes 2.2 10^3/ul (1.0-4.8); ABS Monocytes 1.8 10^3/ul (0-0.8); ABS Neutrophils 13.2 10^3/ul (1.5-7.7); ABS Nucleated RBC 0 10^3/ul; Eosinophil % 3.7 % (0-6); Nucleated Red Blood Cells % 0
[2017-07-06] MEDS ORDERED: Piperacillin/Tazobac ADVAN(*) 3.375 GM in NS 0.9% 100 ML* 100 ML IVPB ONE (02:48)
[2017-07-06] MEDS ORDERED: Potassium Chlor TAB* 20 MEQ TAB.ER PO ONE (02:49)
[2017-07-06 02:51] LABS: INR 1.24 (0.77-1.02)
--- NOTE | 2017-07-06 03:41 | ED ---
Arabella Fournier Julia, scribed for Abby Irwin MD on 07/06/17 at 0148 . Skin Complaint - HPI Summary HPI Summary: This patient is a 72 year old M presenting to [facility] with a chief complaint of flu like symptoms and joint pain for the past two days worsening with bilateral bleeding sores on his feet this evening. Patient reports lower extremity erythema and edema, and skin diaphoresis. Patient denies fever. The patient rates the foot pain 3/10 in severity. Foot pain aggravated by standing. Patient states he noticed his socks saturated with blood. Patient has a history of neuropathy, but is not diabetic. Medications reviewed. Patient is seen by Dr. Velez. - History of Current Complaint Chief Complaint: EDGeneral Time Seen by Provider: 07/06/17 01:28 Stated Complaint: BLISTERS ON FEET/SWELLING Hx Obtained From: Patient Onset/Duration: Started Weeks Ago, Worse Since - today Skin Exposure Onset/Duration: Hours Ago Pain Intensity: 3 Pain Scale Used: 0-10 Numeric Skin Location: Foot - bilateral Character: Swelling, Redness Associated Signs & Symptoms: Diaphoresis, Drainage, Joint Swelling Related History: Other: - neuropathy - Allergy/Home Medications Allergies/Adverse Reactions: Allergies Allergy/AdvReac Type Severity Reaction Status Date / Time Penicillins AdvReac Mild GI Upset Verified 07/06/17 02:42 BEE STINGS Allergy Severe ANAPHYLACTI Uncoded 07/06/17 02:42 C Home Medications: Home Medications Furosemide [Furosemide] 20 mg PO QID PRN 07/06/17 [History Confirmed 07/06/17] Pramipexole TAB* [Mirapex TAB*] 0.75 mg PO BEDTIME 07/06/17 [History Confirmed 07/06/17] PMH/Surg Hx/FS Hx/Imm Hx Endocrine/Hematology History: Denies: Hx Diabetes Cardiovascular History: Reports: Hx Hypertension - ON MEDICATION FOR Denies: Hx Congestive Heart Failure, Hx Pacemaker/ICD Respiratory History: Reports: Hx Sleep Apnea Denies: Hx Asthma History: Reports: Hx Kidney Stones - HX OF Denies: Hx Renal Disease Musculoskeletal History: Reports: Hx Arthritis, Hx Back Problems, Hx Orthopedic Injury - (left) tkr, Other Musculoskeletal History - SPINAL STENOSIS- SURGERY 2009 Sensory History: Reports: Hx Cataracts, Hx Contacts or Glasses - READING Denies: Hx Hearing Aid Opthamlomology History: Reports: Hx Cataracts, Hx Contacts or Glasses - READING Neurological History: Reports: Other Neuro Impairments/Disorders - RESTLESS LEG SYNDROME, neuropathy Psychiatric History: Denies: Hx Panic Disorder - Surgical History Surgery Procedure, Year, and Place: LEFT TKR- CJ;. RIGHT TKR CJ 03/2014; . BILAT CATARACTS 2005- [facility] [place];. 3 LEVEL LUMBAR LAMINECTOMY 2009 [facility];. RIGHT SHOULDER SURGERY X3 1998 [facility] [place];. RIGHT KNEE SCOPING [facility] [place];. LEFT FOOT SURGERY X 2;. BILATERAL CARPAL TUNNEL RELEASE;. TONSILLECTOMY; Hx Anesthesia Reactions: No - STRONG TOLERANCE TO PAIN MEDICATIONS AND ANESTHESIA" Infectious Disease History: Yes Infectious Disease History: Denies: Traveled Outside the [place] in Last 30 Days - Family History Known Family History: Positive: Diabetes - Social History Alcohol Use: None Alcohol Amount: RECOVERING ALCOHOLIC X 28 YEARS Substance Use Type: Reports: None Substance Use Comment - Amount & Last Used: MARIJUANA USE IN THE PAST- STOPPED IN 1979 Smoking Status (MU): Never Smoked Tobacco Amount Used/How Often: [employer] Language ExpressJUANNA SMOKER X 14 YEARS Review of Systems Positive: Skin Diaphoresis. Negative: Fever Positive: Myalgia - bilateral foot pain, Edema - bilateral lower extremity Positive: Other - bleeding sores, and erythemea to bilateral feet All Other Systems Reviewed And Are Negative: Yes Physical Exam - Summary Physical Exam Summary: VITAL SIGNS: Reviewed. GENERAL: Patient is a well-developed and nourished male who is lying comfortable in the stretcher. Patient is not in any acute respiratory distress. HEAD AND FACE: No signs of trauma. No ecchymosis, hematomas or skull depressions. No sinus tenderness. EYES: PERRLA, EOMI x 2, No injected conjunctiva, no nystagmus. EARS: Hearing grossly intact. Ear canals and tympanic membranes are within normal limits. MOUTH: Oropharynx within normal limits. NECK: Supple, trachea is midline, no adenopathy, no JVD, no carotid bruit, no c- spine tenderness, neck with full ROM. CHEST: Symmetric, no tenderness at palpation LUNGS: Clear to auscultation bilaterally. No wheezing or crackles. CVS: Regular rate and rhythm, S1 and S2 present, no murmurs or gallops appreciated. ABDOMEN: Soft, non-tender. No signs of distention. No rebound no guarding, and no masses palpated. Bowel sounds are normal. EXTREMITIES: FROM in all major joints, no cyanosis or clubbing. L foot warm, red , and swollen with broken blisters, bilateral chronic skin changes of the leg NEURO: Alert and oriented x 3. No acute neurological deficits. Speech is normal and follows commands. SKIN: Dry and warm Triage Information Reviewed: Yes Vital Signs On Initial Exam: Initial Vitals Temp Pulse Resp BP Pulse Ox 96 F 66 20 155/63 95 07/06/17 00:51 07/06/17 00:51 07/06/17 00:51 07/06/17 00:51 07/06/17 00:51 Vital Signs Reviewed: Yes Diagnostics - Vital Signs Vital Signs Temp Pulse Resp BP Pulse Ox 07/06/17 00:51 96 F 66 20 155/63 95 - Laboratory Result Diagrams: 07/06/17 02:00 07/06/17 02:00 Lab Statement: Any lab studies that have been ordered have been reviewed, and results considered in the medical decision making process. Course/Dx - Course Course Of Treatment: Patient presents with flu like symptoms and joint pain for the past two days worsening with bilateral bleeding sores on his feet this evening. Patient reports lower extremity erythema and edema, and skin diaphoresis. Physical exam is indicative of cellulitis in the left foot. Patient is given Potassium Chloride, Piperacillin, and Vancomycin. Dr. Zuniga agrees to admit this patient. - Diagnoses Provider Diagnoses: Cellulitis of left foot - Physician Notifications Discussed Care Of Patient With: Prabhu Zuniga - hospitalist Time Discussed With Above Provider: 02:40 Instructed by Provider To: Admit As Inpatient Discharge - Discharge Plan Condition: Fair Disposition: ADMITTED TO [facility] Referrals: Waldemar Jenkins MD [Primary Care Provider] - The documentation as recorded by the Arabella brothers Julia accurately reflects the service I personally performed and the decisions made by me, Abby Irwin MD.
[2017-07-06] MEDS ORDERED: Ondansetron INJ* 2 MG/ML VIAL IV PRN (04:08)
[2017-07-06] MEDS ORDERED: CMCS:Melatonin (NF) 3 MG TAB PO PRN (04:08)
[2017-07-06] MEDS ORDERED: Furosemide TAB* 20 MG PO PRN (04:10)
[2017-07-06 04:15] LABS: Urine Appearance Clear; Urine Blood 1+ (Negative); Urine Color Amber; Urine Ketones Negative (Negative); Urine Protein 2+(100 mg/dL) (Negative); Urine Specific Gravity 1.034 (1.010-1.030); Urine Urobilinogen Positive (Negative)
[2017-07-06] MEDS ORDERED: NS 0.9% 1000 ML* 1,000 ML IV SCH (04:15)
[2017-07-06] MEDS ORDERED: NS 0.9% 100 ML* 100 ML ONE (04:19)
[2017-07-06] MEDS ORDERED: Vancomycin per Pharmacy* NOTE FOLLOW UP SCH (05:00)
[2017-07-06 06:05] LABS: EGFR Non-African American 68.3 (>60)
[2017-07-06] MEDS: Omeprazole CAP* 20 MG PO SCH (06:47)
[2017-07-06] MEDS: Heparin VIAL(*) 5000 UNITS/ML VIAL (FIVE THOUSAND) SUBCUT SCH ×3 (06:47→20:32)
[2017-07-06] MEDS: Pregabalin CAP(*) 50 MG PO SCH ×3 (09:27→20:32)
[2017-07-06] MEDS: Docusate CAP* 100 MG PO SCH ×2 (09:28→22:00)
[2017-07-06] MEDS: Cefepime 1 GM in Dextrose(*) 1 GM/50 ML BAG IV SCH ×2 (09:29→20:37)
[2017-07-06] MEDS ORDERED: Cefepime(*) 1 GM in NS 0.9% 50 ML* 50 ML IVPB SCH (10:00)
[2017-07-06] MEDS ORDERED: Pramipexole TAB* 0.5 MG PO ONE (15:18)
--- NOTE | 2017-07-06 15:18 | PN ---
Subjective Date of Service: 07/06/17 Interval History: Mr. Suggs reports feeling better than on arrival though continues to feel tired. He denies chest pain, SOB, nausea, or abdominal pain. Objective Active Medications: Acetaminophen (Tylenol Tab*) 650 mg PO Q6H PRN Amitriptyline HCl (Elavil Tab*) 25 mg PO BEDTIME BHASKAR Atenolol (Tenormin Tab*) 50 mg PO BEDTIME BHASKAR Docusate Sodium (Colace Cap*) 200 mg PO BID BHASKAR Furosemide (Lasix Tab*) 20 mg PO QID PRN Heparin Sodium (Porcine) (Heparin Vial(*)) 5,000 units SUBCUT Q8HR BHASKAR Hydralazine HCl (Apresoline Iv*) 10 mg IV Q4H PRN Sodium Chloride (Ns 0.9% 1000 Ml*) 1,000 mls @ 50 mls/hr IV PER RATE BHASKAR Cefepime HCl (Maxipime 1 Gm In Dextrose Duplex (*)) 1 gm in 50 mls @ 100 mls/ hr IV Q12H BHASKAR Melatonin (Melatonin (Nf)) 3 mg PO BEDTIME PRN; Protocol Omeprazole (Prilosec Cap*) 20 mg PO DAILY@0600 BH[place] Ondansetron HCl (Zofran Inj*) 4 mg IV Q6H PRN Oxycodone HCl (Roxycodone Tab*) 5 mg PO Q4H PRN Pramipexole Dihydrochloride (Mirapex Tab*) 0.75 mg PO BEDTIME BHASKAR Pregabalin (Lyrica Cap(*)) 50 mg PO TID BH[place]AR Tramadol HCl (Ultram*) 50 mg PO Q6HR PRN Vital Signs: Temp Pulse Resp BP Pulse Ox 97.6 F 66 20 162/62 98 07/06/17 12:15 07/06/17 11:50 07/06/17 14:09 07/06/17 11:50 07/06/17 12:15 Oxygen Devices in Use Now: None Appearance: Male lying in bed in NAD Eyes: No Scleral Icterus Ears/Nose/Mouth/Throat: Mucous Membranes Moist Neck: Trachea Midline Respiratory: Symmetrical Chest Expansion and Respiratory Effort, Clear to Auscultation Cardiovascular: NL Sounds; No Murmurs; No JVD, - - +2 LE edema to bilateral feet , +1 to bilateral ankles and calves Lymphatic: No Cervical Adenopathy Skin: - - blisters/ulcerations noted to left 2nd and 3rd toes circumferential at base with extensive swelling. R medial foot near base of big toe with broken blister wrapping around to bottom of foot. Neurological: Alert and Oriented x 3, NL Muscle Strength and Tone Nutrition: Taking PO's Result Diagrams: 07/06/17 02:00 07/06/17 05:38 Assess/Plan/Problems-Billing Assessment: Mr. Suggs is a 72 yo M with a PMH of chronic B LE venous stasis who was admitted on 07/05/17 with bilateral lower extremity ulcers, L > R with concern for osteoomyelitis. - Patient Problems (1) Cellulitis Comment: - WBC 18 on arrival, afebrile, did not meet sepsis criteria. - Has blisters, significant edema with ulcerations to both feet, L > R with concern for osteomyelitis. Recent JENNY showing good arterial flow but has history of venous disease and chronic lower extremity wounds. - MRSA negative, Staph aureus positive per superficial wound culture but will continue broad spectrum antibiotics until deeper culture can be obtained per ID/ ortho. - Continue cefepime and add vancomycin/flagyl - ID and ortho consult pending for tomorrow. (2) Lower extremity edema Comment: - Furosemide prn, continue wrapping LE, keep elevated. (3) Restless leg syndrome Comment: - Continue pramipexole. (4) Peripheral neuropathy Comment: - Continue pregabalin and amitriptyline. (5) Hypertension Comment: - SBP 160-190s, improved since admission. - Continue atenolol (6) DVT prophylaxis (7) Full code status Comment: Status and Disposition: Inpatient. Anticipate discharge to home when medically stable.
[2017-07-06] MEDS ORDERED: Vancomycin per Pharmacy* NOTE FOLLOW UP PRN (16:19)
[2017-07-06] MEDS ORDERED: Vancomycin(*) 2,000 MG in NS 0.9% 500 ML* 500 ML IVPB ONE (16:30)
[2017-07-06] MEDS: metroNIDAZOLE IV 500 MG/100ML* 500 MG/100 ML BAG IVPB SCH (16:53)
--- NOTE | 2017-07-06 20:17 | RAD ---
INDICATION: Wounds on the second and third toes evaluate for osteomyelitis. COMPARISON: Comparison is made with a prior MRI of the left foot from April 17, 2006 and prior x-ray study of the left foot from May 11 2017. TECHNIQUE: Axial, sagittal and coronal T1 and T2-weighted images of the left foot were obtained. The exam is limited due to motion artifact. FINDINGS: Postsurgical changes are noted in the distal first metatarsal and first proximal phalanx. There is diffuse soft tissue swelling present in the subcutaneous tissues and also in the muscles along the plantar aspect of the foot suggestive of cellulitis and myositis. There are couple small foci of edema signal intensity present at the base of the third middle phalanx and in the distal aspect of the third proximal phalanx likely related to arthritic change less likely osteomyelitis. No other areas of significant bone marrow edema are noted. No fluid collection or abscess is seen. IMPRESSION: 1. DIFFUSE SOFT TISSUE SWELLING SUGGESTIVE OF CELLULITIS AND MYOSITIS. 2. SMALL FOCI OF EDEMA SIGNAL INTENSITY IN THE THIRD PROXIMAL AND MIDDLE PHALANGES LIKELY SECONDARY TO ARTHRITIC CHANGE LESS LIKELY OSTEOMYELITIS.
[2017-07-06] MEDS: traMADol TAB* 50 MG PO PRN (20:31)
[2017-07-06] MEDS: Amitriptyline TAB* 25 MG PO SCH (20:32)
[2017-07-06] MEDS: Furosemide TAB* 20 MG PO SCH (20:32)
[2017-07-06] MEDS: Pramipexole TAB* 0.5 MG PO SCH (20:32)
[2017-07-06] MEDS: Atenolol TAB* 50 MG PO SCH (20:32)
[2017-07-06] MEDS ORDERED: Pramipexole TAB* 0.5 MG PO SCH (21:00)
[2017-07-07] MEDS: metroNIDAZOLE IV 500 MG/100ML* 500 MG/100 ML BAG IVPB SCH ×2 (00:20→08:53)
[2017-07-07] MEDS: traMADol TAB* 50 MG PO PRN (05:41)
[2017-07-07] MEDS: Omeprazole CAP* 20 MG PO SCH (05:41)
[2017-07-07] MEDS: Heparin VIAL(*) 5000 UNITS/ML VIAL (FIVE THOUSAND) SUBCUT SCH ×3 (05:41→20:41)
[2017-07-07 06:29] LABS: ABS Basophils 0.1 10^3/ul (0-0.2); ABS Eosinophils 0.9 10^3/ul (0-0.6); ABS Lymphocytes 2.3 10^3/ul (1.0-4.8); ABS Monocytes 1.3 10^3/ul (0-0.8); ABS Neutrophils 5.5 10^3/ul (1.5-7.7); ABS Nucleated RBC 0 10^3/ul; Eosinophil % 9.3 % (0-6); Hematocrit 37 % (42-52); Hemoglobin 12.8 g/dl (14.0-18.0); Lymphocyte % 23.1 % (25-47); Mean Corpuscular HGB Conc 34 g/dl (31-36); Mean Corpuscular Hemoglobin 29 pg (27-31); Mean Corpuscular Volume 85 fL (80-94); Mean Platelet Volume 8 um3 (7.4-10.4); Nucleated Red Blood Cells % 0; Platelet Count 162 10^3/ul (150-450); Red Blood Count 4.38 10^6/ul (4.0-5.4); Red Cell Distribution Width 15 % (10.5-15); White Blood Count 10.1 10^3/ul (3.5-10.8)
--- NOTE | 2017-07-07 07:47 | PN ---
Subjective Date of Service: 07/07/17 Interval History: Mr. Suggs reports that he is feeling well. His only complaint is of being bored. He denies chest pain, SOB, nausea, or abdominal pain. Objective Active Medications: Acetaminophen (Tylenol Tab*) 650 mg PO Q6H PRN Amitriptyline HCl (Elavil Tab*) 25 mg PO BEDTIME BHASKAR Atenolol (Tenormin Tab*) 50 mg PO BEDTIME BHASKAR Docusate Sodium (Colace Cap*) 200 mg PO BID BH[place]AR Furosemide (Lasix Tab*) 20 mg PO 1830 BHASKAR Heparin Sodium (Porcine) (Heparin Vial(*)) 5,000 units SUBCUT Q8HR [place] Hydralazine HCl (Apresoline Iv*) 10 mg IV Q4H PRN Sodium Chloride (Ns 0.9% 1000 Ml*) 1,000 mls @ 50 mls/hr IV PER RATE BH[place] Cefepime HCl (Maxipime 1 Gm In Dextrose Duplex (*)) 1 gm in 50 mls @ 100 mls/ hr IV Q12H BHASKAR Metronidazole/Sodium Chloride (Flagyl 500 Mg Ivpb*) 500 mg in 100 mls @ 100 mls /hr IVPB Q8H BH[place]AR Melatonin (Melatonin (Nf)) 3 mg PO BEDTIME PRN; Protocol Omeprazole (Prilosec Cap*) 20 mg PO DAILY@0600 BH[place] Ondansetron HCl (Zofran Inj*) 4 mg IV Q6H PRN Oxycodone HCl (Roxycodone Tab*) 5 mg PO Q4H PRN Pramipexole Dihydrochloride (Mirapex Tab*) 0.25 mg PO TID BH[place]AR Pregabalin (Lyrica Cap(*)) 50 mg PO TID BH[place] Tramadol HCl (Ultram*) 50 mg PO Q6HR PRN Vital Signs: Temp Pulse Resp BP Pulse Ox 98.2 F 61 20 144/68 96 07/07/17 05:59 07/07/17 05:59 07/07/17 05:59 07/07/17 05:59 07/07/17 05:59 Oxygen Devices in Use Now: None Appearance: Male sitting up in bed in NAD Eyes: No Scleral Icterus Ears/Nose/Mouth/Throat: Mucous Membranes Moist Neck: Trachea Midline Respiratory: Symmetrical Chest Expansion and Respiratory Effort, Clear to Auscultation Cardiovascular: NL Sounds; No Murmurs; No JVD, - - +2 pitting edema to B LEs Abdominal: NL Sounds; No Tenderness; No Distention Skin: No Rash or Ulcers Neurological: Alert and Oriented x 3, NL Muscle Strength and Tone Nutrition: Taking PO's Result Diagrams: 07/07/17 06:06 07/06/17 05:38 Assess/Plan/Problems-Billing Assessment: Mr. Suggs is a 72 yo M with a PMH of chronic B LE venous stasis who was admitted on 07/05/17 with bilateral lower extremity ulcers, L > R with concern for osteoomyelitis. - Patient Problems (1) Streptococcal cellulitis Comment: - Leukocytosis resolved, afebrile, did not meet sepsis criteria. - Strep bacteremia with staph per wound culture. - Has blisters, significant edema with ulcerations to both feet, L > R with concern for osteomyelitis. Recent JENNY showing good arterial flow but has history of venous disease and chronic lower extremity wounds. However, MRI showing cellulitis and myositis only without evidence of osteo. - Appreciate ID consult, plan for ceftriaxone with clindamyin. - Wound care consult appreciated, plan for bacitracin and gauze. - Ortho consult pending. (2) Lower extremity edema Comment: - Start routine furosemide, continue wrapping LE, keep elevated. (3) Restless leg syndrome Comment: - Continue pramipexole. (4) Peripheral neuropathy Comment: - Continue pregabalin and amitriptyline. (5) Hypertension Comment: - SBP 160-190s, improved since admission. - Continue atenolol (6) DVT prophylaxis (7) Full code status Comment: Status and Disposition: Inpatient. Anticipate discharge to home when medically stable.
[2017-07-07] MEDS: Pramipexole TAB* 0.5 MG PO SCH ×3 (08:57→20:40)
[2017-07-07] MEDS: Pregabalin CAP(*) 50 MG PO SCH ×3 (08:58→20:39)
[2017-07-07] MEDS: Docusate CAP* 100 MG PO SCH ×2 (08:58→20:40)
[2017-07-07] MEDS ORDERED: Furosemide IV* 10 MG/ML 2 ML VIAL (20 MG) IV ONE (09:00)
[2017-07-07] MEDS: Cefepime 1 GM in Dextrose(*) 1 GM/50 ML BAG IV SCH (10:14)
[2017-07-07] MEDS ORDERED: cefTRIAXone 2000 MG SYRINGE IVPB Q24H IVPB SCH ×2 (13:00)
[2017-07-07] MEDS ORDERED: cefTRIAXone(*) 2 GM in NS 0.9% 100 ML* 100 ML IVPB SCH (13:00)
[2017-07-07] MEDS ORDERED: cefTRIAXone(*) 2 GM in NS 0.9% 100 ML* 100 ML IVPB ONE (13:30)
--- NOTE | 2017-07-07 17:08 | PN ---
Progress Note - Progress Note Date of Service: 07/07/17 SOAP: Subjective: [] Patient seen at bedside. He feels well though is quite surprised at the severity of his foot infection, stating onset three days ago. Last known "normal " appearance of left foot was Monday 07/03 though patient admits he is unable to see the bottom of his foot. He lacks sensation BL LE from knee down. Last known blood sugars were WNL, roughly a year ago before this admission. Denies fever or chills. Objective: [] Vital Signs Temp 98.0 F 07/07/17 15:09 Pulse 64 07/07/17 15:09 Resp 18 07/07/17 16:35 BP 143/60 07/07/17 15:09 Pulse Ox 96 07/07/17 15:09 Intake & Output 07/06/17 07/07/17 07/07/17 18:59 06:59 18:59 Intake Total 2238 1805 1178 Balance 2238 1805 1178 Weight 287 lb 4.8 oz Intake: IV Fluids 198 925 198 ABX - CEFEPIME 50 ABX - FLAGYL 100 NS (0.9%) 198 775 198 IVPB 150 ABX - CEFEPIME 50 ABX - FLAGYL 100 Oral 2040 880 830 Other: Estimated Void Medium # Bowel Movements 0 # Voids 3 Laboratory Last Values WBC 10.1 10^3/ul (3.5-10.8) 07/07/17 06:06 RBC 4.38 10^6/ul (4.0-5.4) 07/07/17 06:06 Hgb 12.8 g/dl (14.0-18.0) L 07/07/17 06:06 Hct 37 % (42-52) L 07/07/17 06:06 MCV 85 fL (80-94) 07/07/17 06:06 MCH 29 pg (27-31) 07/07/17 06:06 MCHC 34 g/dl (31-36) 07/07/17 06:06 RDW 15 % (10.5-15) 07/07/17 06:06 Plt Count 162 10^3/ul (150-450) 07/07/17 06:06 MPV 8 um3 (7.4-10.4) 07/07/17 06:06 Neut % (Auto) 53.9 % (38-83) 07/07/17 06:06 Lymph % (Auto) 23.1 % (25-47) L 07/07/17 06:06 Brantley % (Auto) 12.8 % (0-7) H 07/07/17 06:06 Eos % (Auto) 9.3 % (0-6) H 07/07/17 06:06 Baso % (Auto) 0.9 % (0-2) 07/07/17 06:06 Absolute Neuts (auto) 5.5 10^3/ul (1.5-7.7) 07/07/17 06:06 Absolute Lymphs (auto) 2.3 10^3/ul (1.0-4.8) 07/07/17 06:06 Absolute Monos (auto) 1.3 10^3/ul (0-0.8) H 07/07/17 06:06 Absolute Eos (auto) 0.9 10^3/ul (0-0.6) H 07/07/17 06:06 Absolute Basos (auto) 0.1 10^3/ul (0-0.2) 07/07/17 06:06 Absolute Nucleated RBC 0 10^3/ul 07/07/17 06:06 Nucleated RBC % 0 07/07/17 06:06 INR (Anticoag Therapy) 1.24 (0.77-1.02) H 07/06/17 02:00 APTT 35.2 seconds (26.0-36.3) 07/06/17 02:00 Sodium 135 mmol/L (133-145) 07/06/17 05:38 Potassium 3.7 mmol/L (3.5-5.0) 07/06/17 05:38 Chloride 103 mmol/L (101-111) 07/06/17 05:38 Carbon Dioxide 24 mmol/L (22-32) 07/06/17 05:38 Anion Gap 8 mmol/L (2-11) 07/06/17 05:38 BUN 23 mg/dL (6-24) 07/06/17 05:38 Creatinine 1.07 mg/dL (0.67-1.17) 07/06/17 05:38 Est GFR ( Amer) 87.9 (>60) 07/06/17 05:38 Est GFR (Non-Af Amer) 68.3 (>60) 07/06/17 05:38 BUN/Creatinine Ratio 21.5 (8-20) H 07/06/17 05:38 Glucose 106 mg/dL (70-100) H 07/06/17 05:38 Lactic Acid 0.9 mmol/L (0.5-2.0) 07/06/17 02:00 Calcium 8.7 mg/dL (8.6-10.3) 07/06/17 05:38 Total Bilirubin 0.60 mg/dL (0.2-1.0) 07/06/17 02:00 AST 19 U/L (13-39) 07/06/17 02:00 ALT 16 U/L (7-52) 07/06/17 02:00 Alkaline Phosphatase 74 U/L (34-104) 07/06/17 02:00 C-Reactive Protein 256.72 mg/L (< 5.00) H 07/06/17 02:00 Total Protein 7.8 g/dL (6.4-8.9) 07/06/17 02:00 Albumin 3.4 g/dL (3.2-5.2) 07/06/17 02:00 Globulin 4.4 g/dL (2-4) H 07/06/17 02:00 Albumin/Globulin Ratio 0.8 (1-3) L 07/06/17 02:00 Urine Color Nicky 07/06/17 03:36 Urine Appearance Clear 07/06/17 03:36 Urine pH 5.0 (5-9) 07/06/17 03:36 Ur Specific [place] 1.034 (1.010-1.030) H 07/06/17 03:36 Urine Protein 2+(100 mg/dl) (Negative) A 07/06/17 03:36 Urine Ketones Negative (Negative) 07/06/17 03:36 Urine Blood 1+ (Negative) A 07/06/17 03:36 Urine Nitrate Negative (Negative) 07/06/17 03:36 Urine Bilirubin Negative (Negative) 07/06/17 03:36 Urine Urobilinogen Positive (Negative) A 07/06/17 03:36 Ur Leukocyte Esterase Negative (Negative) 07/06/17 03:36 Urine WBC (Auto) Trace(0-5/hpf) (Absent) 07/06/17 03:36 Urine RBC (Auto) Absent (Absent) 07/06/17 03:36 Ur Squamous Epith Cells Present (Absent) A 07/06/17 03:36 Urine Bacteria Absent (Absent) 07/06/17 03:36 Urine Glucose Negative (Negative) 07/06/17 03:36 Hepatitis A IgM Ab Nonreactive (Nonreactive) 07/06/17 15:30 Hep Bs Antigen Nonreactive (Nonreactive) 07/06/17 15:30 Hep B Core IgM Ab Nonreactive (Nonreactive) 07/06/17 15:30 Hepatitis C Antibody Nonreactive (Nonreactive) 07/06/17 15:30 HIV 1&2 Antibody Rapid Nonreactive (Nonreactive) 07/06/17 15:30 General: Well appearing, laying comfortably in bed BL LE with chronic erythema and skin flaking. 2+ pitting edema bilaterally. LLE: DP pulse 2+. Plantar aspect of foot with pocket of purulence located at base of 2nd and 3rd digits which appears to extend into the webspace with purulent drainage and erythema about these two digits. Assessment: []left foot infection Plan: []Plan OR 07/09 for transmetatarsal amputation, patient agreeable ABX per ID <Eloisa Martinez - Last Filed: 07/07/17 17:13> - Progress Note SOAP: Addendum: Pt seen and examined on 07/07/17. He has chronic LE edema bilaterally and neuropathy of unknown origin. He formerly worked at [employer] and is now retired. Unfortunately he was admitted for an advanced left forefoot infection with ulceration, gross purulence, edema and erythema. We discussed non-op treatment with just abx, partial forefoot amputataion and TMA. I am concerned the first 2 options would provide inadequate infection source control given the appearance of the forefoot. He understood and expressed his desire to move forward with a TMA. We described risks and benefits at length. I may also do an Achilles lenghtening depending on how tight it is on exam under anesthesia. All questions were answered. Isidro Chan MD <Isidro Chan - Last Filed: 07/09/17 10:08>
[2017-07-07] MEDS: Furosemide TAB* 20 MG PO SCH (17:56)
--- NOTE | 2017-07-07 18:05 | CONS ---
CONSULTATION REPORT: DATE OF CONSULT: 07/07/17 REQUESTING PROVIDER: Idania Wood NP CONSULTING SERVICE: Infectious Disease. REASON FOR CONSULT: Left foot infection. IMPRESSION: 1. Group A strep bacteremia in 2 of 4 blood culture bottles due to the left forefoot cellulitis, myositis, and possible abscess. 2. Right medial foot cellulitis. 3. Obesity. 4. Peripheral neuropathy. 5. Penicillin intolerance. RECOMMENDATIONS: 1. Stop cefepime and start ceftriaxone 2 g daily. We will change the Flagyl to clindamycin 600 mg IV every [address] Little's opinion. 2. He will need a couple of weeks of antibiotics given that only 2 of 4 bottles were growing group A strep. It is unlikely to be an intravascular infection. Assuming he defervesces and has source control, then we will eventually switch to oral antibiotics. HISTORY OF PRESENT ILLNESS: This is a 72-year-old male with obesity, neuropathy , admitted with fever, myalgia, left foot bleeding. He was well until the weekend when he developed flu-like symptoms that included fever, myalgia, malaise, headache, chills. About the same time he checked his feet and had some bleeding in the medial right foot and in the distal left foot, came to the hospital. On 07/06/17, his white count was 18,000. Blood cultures were sent, they have come back with group A strep 2 of 4 bottles. He is on vancomycin, cefepime, and Flagyl from admission. He has had no fever here. He was found to have cellulitis of the left forefoot. An MRI showed myositis and cellulitis without osteomyelitis. A wound culture was taken, showed gram-positive cocci, Staph aureus PCR negative, MRSA PCR negative. He thinks the redness is receding a little bit from his left foot and leg. He has not had severe infection like this in the past. His systemic symptoms have resolved since he has been here. PAST MEDICAL HISTORY: 1. Peripheral neuropathy. 2. Bilateral lower extremity venous stasis. 3. 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 4. Left foot joint replacement. 5. Status post bilateral carpal tunnel release. 6. Status post tonsillectomy. 7. Status post spinal laminectomy. MEDICATIONS: 1. Tylenol. 2. Amitriptyline. 3. Atenolol. 4. Cefepime 1 g every 12 hours. 5. Furosemide. 6. Heparin subcutaneous injection. 7. Melatonin. 8. Pregabalin. ALLERGIES: PENICILLIN caused intolerance of GI upset. FAMILY HISTORY: No TB or recurrent infections. SOCIAL HISTORY: He lives with his , dogs, cats, grand kids. The pets have not been licking the feet. REVIEW OF SYSTEMS: All negative except as noted above to a 14-point review of systems. PHYSICAL EXAM: Vital Signs: Temperature 37, heart rate 60, respiratory rate 18 , blood pressure 125/43, oxygen saturation 99% on room air. General: He is awake, not in distress. Neurologic: He is oriented x3. Follows all commands. HEENT: There is no conjunctival hemorrhage. Oropharynx without lesions. Neck : Supple. Lymph Nodes: There is no cervical, supraclavicular, inguinal, axillary, or epitrochlear lymphadenopathy. Heart: Regular rate and rhythm without murmurs, rubs, or gallops. Lungs: Clear to auscultation bilaterally. Abdomen: Soft, nontender, and nondistended. There are bowel sounds present. Skin: There is no splinter hemorrhage or rash. Musculoskeletal: There is no spine tenderness to palpation. The bilateral knees, there is no effusion, warmth or tenderness. The left foot, there is diffuse edema and erythema which is more prominent about the second and third toes and just proximal to the area of base of the second and third toes. There is some whitish and purplish discoloration without tenderness. There is no crepitus or fluctuance. The right medial foot, there is a centimeter and a half area with clear fluid surrounding base of erythema. DIAGNOSTIC STUDIES/LAB DATA: White blood cell count 10, hemoglobin 12, and platelets 162,000. Creatinine is 1. CRP is 256 yesterday. Please see impression and recommendations outlined above, which I have discussed with Idania Wood NP. Thank you for asking me to see Mr. Suggs in consultation. [id number]/[facility] #: [id number] [facility] HOSPITALKamla
[2017-07-07] MEDS: Amitriptyline TAB* 25 MG PO SCH (20:38)
[2017-07-07] MEDS: Atenolol TAB* 50 MG PO SCH (20:40)
[2017-07-07] MEDS: hydrALAZINE IV* 20 MG/ML VIAL IV PRN (21:25)
[2017-07-08] MEDS: Omeprazole CAP* 20 MG PO SCH (05:39)
[2017-07-08] MEDS: traMADol TAB* 50 MG PO PRN ×2 (05:44→20:35)
[2017-07-08] MEDS: Heparin VIAL(*) 5000 UNITS/ML VIAL (FIVE THOUSAND) SUBCUT SCH ×3 (05:59→20:59)
[2017-07-08] MEDS: Pramipexole TAB* 0.5 MG PO SCH ×3 (09:58→20:13)
[2017-07-08] MEDS: Bacitracin OINTMENT* 0.5% 0.5 oz TUBE TOPICAL SCH (09:58)
[2017-07-08] MEDS: Pregabalin CAP(*) 50 MG PO SCH ×3 (09:59→20:12)
[2017-07-08] MEDS: Docusate CAP* 100 MG PO SCH ×2 (10:00→20:35)
[2017-07-08] MEDS ORDERED: Buffered Lidocaine 0.9% SYRIN* 5 ML/SYR SYRINGE INTRADERM ONE (11:01)
[2017-07-08] MEDS: cefTRIAXone 2000 MG SYRINGE IVPB Q24H IVPB SCH ×2 (13:12)
--- NOTE | 2017-07-08 15:10 | PN ---
Subjective Date of Service: 07/08/17 Interval History: Patient feels ok. Patient denies F/C, N/V, foot pain, CP, SOB, N/V, Abdominal pain, diarrhea, constipation, or other pain. Patient has stable neuropathy in his feet. Patient states that the ulcer on his right foot looks improved but that there has been no improvement in his left foot. Patient states that he has not been sleeping well. Patient has been intolerant of positive pressure masks at home previously. Family History: Unchanged from Admission Social History: Unchanged from Admission Past Medical History: Unchanged from Admission Objective Active Medications: Acetaminophen (Tylenol Tab*) 650 mg PO Q6H PRN PRN Reason: FEVER/PAIN Amitriptyline HCl (Elavil Tab*) [address] [facility] Last Admin: 07/07/17 20:38 Dose: 25 mg Atenolol (Tenormin Tab*) [address] [facility] Last Admin: 07/07/17 20:40 Dose: 50 mg Bacitracin (Bacitracin Ointment*) [address] [facility] Last Admin: 07/08/17 09:58 Dose: 1 applic Docusate Sodium (Colace Cap*) [address] [facility] Last Admin: 07/08/17 10:00 Dose: Not Given Furosemide (Lasix Tab*) [address] [facility] Last Admin: 07/07/17 17:56 Dose: 20 mg Heparin Sodium (Porcine) (Heparin Vial(*)) 5,[address] [facility] Last Admin: 07/08/17 13:12 Dose: 5,000 units Hydralazine HCl (Apresoline Iv*) 10 mg IV Q4H PRN PRN Reason: Systolic >170 Last Admin: 07/07/17 21:25 Dose: 10 mg Ceftriaxone Sodium 2,000 mg/ (Sterile Water) 20 mls @ 40 mls/hr IVPB Q24H [facility] Last Admin: 07/08/17 13:12 Dose: 40 mls/hr Lactated Ringer's (Lactated Ringers 1000 Ml Bag*) 1,000 mls @ 125 mls/hr IV PER RATE [facility] Melatonin (Melatonin (Nf)) 3 mg PO BEDTIME PRN; Protocol PRN Reason: Sleep Melatonin (Melatonin (Nf)) [address] [facility] Omeprazole (Prilosec Cap*) 20 mg PO DAILY@0600 [facility] Last Admin: 07/08/17 05:39 Dose: 20 mg Ondansetron HCl (Zofran Inj*) 4 mg IV Q6H PRN PRN Reason: NAUSEA Oxycodone HCl (Roxycodone Tab*) 5 mg PO Q4H PRN PRN Reason: PAIN Pramipexole Dihydrochloride (Mirapex Tab*) 0.[address] [facility] Last Admin: 07/08/17 13:14 Dose: 0.25 mg Pregabalin (Lyrica Cap(*)) [address] [facility] Last Admin: 07/08/17 13:15 Dose: 50 mg Tramadol HCl (Ultram*) 50 mg PO Q6HR PRN PRN Reason: PAIN Last Admin: 07/08/17 05:44 Dose: 50 mg Vital Signs - 8 hr 07/08/17 07/08/17 07/08/17 07:31 08:00 08:29 Temperature 97.5 F Pulse Rate Respiratory 18 16 Rate Blood Pressure 118/91 142/70 (mmHg) O2 Sat by Pulse 98 98 Oximetry 07/08/17 07/08/17 07/08/17 08:34 09:59 11:20 Temperature 98.2 F Pulse Rate 61 Respiratory 16 16 18 Rate Blood Pressure 145/84 (mmHg) O2 Sat by Pulse 96 Oximetry 07/08/17 07/08/17 12:41 13:15 Temperature Pulse Rate Respiratory 18 16 Rate Blood Pressure (mmHg) O2 Sat by Pulse Oximetry Oxygen Devices in Use Now: None Appearance: Patient is a 72yo male who appears stated age and is sitting in the bed in [facility]. Eyes: No Scleral Icterus, PERRLA Ears/Nose/Mouth/Throat: NL Teeth, Lips, Gums, Clear Oropharnyx, Mucous Membranes Moist Neck: NL Appearance and Movements; NL JVP, Trachea Midline Respiratory: Symmetrical Chest Expansion and Respiratory Effort, Clear to Auscultation Cardiovascular: NL Sounds; No Murmurs; No JVD, RRR, - - 2+ pitting edema in B/L LE with chronic venous stasis changes. Abdominal: NL Sounds; No Tenderness; No Distention, No Hepatosplenomegaly Lymphatic: No Cervical Adenopathy Extremities: No Clubbing, Cyanosis Skin: No Nodules or Sclerosis, - - Swelling and duskiness in B/L LE from the knee down. Large ulcer between left second and third toes extending down to the dorsum fo the foot. Large healing blister on the base of the first toe of the right foot. Neurological: Alert and Oriented x 3, NL Muscle Strength and Tone, - - No sensation in B/L LE. Result Diagrams: 07/07/17 06:06 07/06/17 05:38 Assess/Plan/Problems-Billing Assessment: Mr. Suggs is a 72 yo M with a PMH of chronic B LE venous stasis who was admitted on 07/05/17 with bilateral lower extremity ulcers, L > R with concern for osteomyelitis. Patient is on IV Ceftriaxone and is scheduled for left foot transmetatarsal amputation tomorrow. - Patient Problems (1) Streptococcal cellulitis Current Visit: Yes Status: Acute Code(s): L03.90 - CELLULITIS, UNSPECIFIED; B95.5 - UNSP STREPTOCOCCUS THE CAUSE OF DISEASES CLASSD [facility] SNOMED Code( s): 208573049 Comment: Leukocytosis resolved, afebrile, did not meet sepsis criteria. Strep bacteremia with staph and strep per wound culture. Has blisters, significant edema with ulcerations to both feet, L > R with concern for osteomyelitis. Recent JENNY showing good arterial flow but has history of venous disease and chronic lower extremity wounds. MRI showing cellulitis and myositis with possibility of osteo. Appreciate ID consult, plan for ceftriaxone. Discontinue Clindamycin. Wound care consult appreciated, plan for bacitracin and gauze. Ortho plan for transmetatarsal amputation on 07/09. Patient is medically optimized for surgery. Patient has an RCRI of 0 representing a .4% chance of a major cardiac event. Pateint is capable of at least 4 METs outpatient and is a low risk of complication in this low risk surgery. (2) Hypertension Current Visit: Yes Status: Acute Code(s): I10 - ESSENTIAL (PRIMARY) HYPERTENSION SNOMED Code(s): 56483688 Comment: SBP decreased to 100-140 SBP range, improved since admission. Continue atenolol (3) Lower extremity edema Current Visit: Yes Status: Acute Code(s): R60.0 - LOCALIZED EDEMA SNOMED Code(s): 748666195 Comment: Start routine furosemide, continue wrapping LE, keep elevated. (4) Peripheral neuropathy Current Visit: Yes Status: Acute Code(s): G62.9 - POLYNEUROPATHY, UNSPECIFIED SNOMED Code(s): 532121996 Comment: Continue pregabalin and amitriptyline. Unknown cause Has previously been evaluated by laboratory testing. (5) Restless leg syndrome Current Visit: Yes Status: Acute Comment: Continue pramipexole. (6) DVT prophylaxis Current Visit: Yes Status: Acute Code(s): RQW6629 - SNOMED Code(s): 182561556 Comment: Heparin SubQ. Will hold this evening for surgery tomorrow. (7) Full code status Current Visit: Yes Status: Acute Code(s): Z78.9 - OTHER SPECIFIED HEALTH STATUS SNOMED Code(s): 653702922 Comment: Status and Disposition: Inpatient. Anticipate discharge to home when medically stable.
[2017-07-08] MEDS: Atenolol TAB* 50 MG PO SCH (20:13)
[2017-07-08] MEDS: CMCS: Melatonin (NF) 3 MG TAB PO SCH (20:14)
[2017-07-08] MEDS: Amitriptyline TAB* 25 MG PO SCH (20:14)
[2017-07-09] MEDS: hydrALAZINE IV* 20 MG/ML VIAL IV PRN ×2 (00:29→18:33)
[2017-07-09] MEDS: Omeprazole CAP* 20 MG PO SCH (05:23)
[2017-07-09 06:04] LABS: ABS Basophils 0.1 10^3/ul (0-0.2); ABS Eosinophils 0.9 10^3/ul (0-0.6); ABS Lymphocytes 2.5 10^3/ul (1.0-4.8); ABS Monocytes 0.9 10^3/ul (0-0.8); ABS Neutrophils 3.9 10^3/ul (1.5-7.7); ABS Nucleated RBC 0 10^3/ul; Eosinophil % 10.9 % (0-6); Hematocrit 39 % (42-52); Hemoglobin 13.4 g/dl (14.0-18.0); Lymphocyte % 29.9 % (25-47); Mean Corpuscular HGB Conc 34 g/dl (31-36); Mean Corpuscular Hemoglobin 29 pg (27-31); Mean Corpuscular Volume 86 fL (80-94); Mean Platelet Volume 8 um3 (7.4-10.4); Nucleated Red Blood Cells % 0.1; Platelet Count 188 10^3/ul (150-450); Red Blood Count 4.59 10^6/ul (4.0-5.4); Red Cell Distribution Width 15 % (10.5-15); White Blood Count 8.3 10^3/ul (3.5-10.8)
[2017-07-09 06:18] LABS: INR 1.01 (0.77-1.02)
[2017-07-09 06:21] LABS: EGFR Non-African American 76.5 (>60)
[2017-07-09] MEDS: Docusate CAP* 100 MG PO SCH ×2 (08:16→21:00)
[2017-07-09] MEDS: Bacitracin OINTMENT* 0.5% 0.5 oz TUBE TOPICAL SCH (08:16)
[2017-07-09] MEDS: Pregabalin CAP(*) 50 MG PO SCH ×3 (08:17→21:26)
[2017-07-09] MEDS: Pramipexole TAB* 0.5 MG PO SCH ×3 (08:17→21:28)
[2017-07-09] MEDS: Furosemide TAB* 20 MG PO SCH (08:17)
--- NOTE | 2017-07-09 09:21 | PN ---
Progress Note - Progress Note Date of Service: 07/09/17 SOAP: Subjective: CC: foot infection HPI: 72 year old man with neuropathy developed fever, myalgia; left foot swelling. Fever resolved, left 2nd and 3rd toes continue to get larger, no pain. No fever, rash, or diarrhea. Objective: Vital Signs Temp 36.6 C 07/09/17 07:22 Pulse 54 07/09/17 07:22 Resp 18 07/09/17 08:17 BP 143/81 07/09/17 07:22 Pulse Ox 97 07/09/17 07:22 Intake & Output 07/08/17 07/09/17 07/09/17 18:59 06:59 18:59 Intake Total 520 0 Balance 520 0 Intake: IV Fluids 30 NS (0.9%) 30 IVPB 20 ABX - CEFTRIAXONE 20 Oral 470 0 Other: Estimated Void Medium # Voids 2 0 Gen:awake, no distress HEENT:PERRL, MMM Heart:RRR no murmur Lungs:CTA BL Abd:+BS NTND soft Skin: no rash MSK: left forefoot edema and erythema; 2/3 toes skin sloughing Laboratory Results - last 24 hr 07/09/17 07/09/17 07/09/17 05:42 05:42 05:42 WBC 8.3 RBC 4.59 Hgb 13.4 L Hct 39 L MCV 86 MCH 29 MCHC 34 RDW 15 Plt Count 188 MPV 8 Neut % (Auto) 47.3 Lymph % (Auto) 29.9 [place] % (Auto) 10.8 H Eos % (Auto) 10.9 H Baso % (Auto) 1.1 Absolute Neuts (auto) 3.9 Absolute Lymphs (auto) 2.5 Absolute Monos (auto) 0.9 H Absolute Eos (auto) 0.9 H Absolute Basos (auto) 0.1 Absolute Nucleated RBC 0 Nucleated RBC % 0.1 INR (Anticoag Therapy) 1.01 APTT 33.9 Sodium 135 Potassium 4.4 Chloride 102 Carbon Dioxide 26 Anion Gap 7 BUN 17 Creatinine 0.97 Est GFR ( Amer) 98.4 Est GFR (Non-Af Amer) 76.5 BUN/Creatinine Ratio 17.5 Glucose 97 Calcium 8.8 Magnesium 2.3 Microbiology 07/06/17 03:20 Skin and Soft Tissue MRSA/MSSA (PCR - Final Foot Left Mrsa Negative S.aureus Positive Gram Stain - Final Wound Culture - Final Staphylococcus Aureus Strep Pyogenes (Grp A) 07/06/17 02:10 Aerobic Blood Culture - Preliminary Blood Venous No Growth Day 3 Anaerobic Blood Culture - Preliminary No Growth Day 3 07/06/17 02:00 Aerobic Blood Culture - Final Blood Venous Strep Pyogenes (Grp A) Anaerobic Blood Culture - Final Strep Pyogenes (Grp A) Assessment: 1. Grp A Strep bacteremia, due to left foot necrotizing cellulitis and myositis 2. peripheral neuropathy 3. obesity Plan: 1. continue ceftriaxone, TMA today, duration of antibiotics pending opeartive findings Discussed with Tone HEADLEY
[2017-07-09] MEDS ORDERED: Bupivacaine 0.25% SDV* 30 ML ONE (09:57)
[2017-07-09] MEDS ORDERED: Propofol* 10 MG/ML 20 ML BTL IV PUSH ONE (10:04)
[2017-07-09] MEDS ORDERED: Lidocaine 2% PF * 5 ML VIAL ONE (10:04)
[2017-07-09] MEDS ORDERED: Naloxone* 0.4 MG/ML 1 ML VIAL IV PRN (10:49)
[2017-07-09] MEDS ORDERED: fentaNYL* 50 MCG/ML 2 ML VIAL (100 MCG VIAL) ONE (11:58)
[2017-07-09] MEDS ORDERED: oxyCODONE TAB* 5 MG TAB ONE (12:10)
[2017-07-09] MEDS: oxyCODONE TAB* 5 MG TAB PO PRN ×2 (12:13→17:32)
--- NOTE | 2017-07-09 12:32 | PN ---
Subjective Date of Service: 07/09/17 Interval History: Patient has no acute complaints overnight. Patient denies F/C, N/V, abdominal pain, CP, SOB, diarrhea, pain in extremities, or other pain. Patient states that his peripheral neuropathy was previously evaluated fully with nerve conduction studies and laboratory evaluation but there was no cause found and it was attributed to alcohol abuse when he was younger. Family History: Unchanged from Admission Social History: Unchanged from Admission Past Medical History: Unchanged from Admission Objective Active Medications: Acetaminophen (Tylenol Tab*) 650 mg PO Q6H PRN PRN Reason: FEVER/PAIN Amitriptyline HCl (Elavil Tab*) 25 mg PO BEDTIME [facility] Last Admin: 07/08/17 20:14 Dose: 25 mg Atenolol (Tenormin Tab*) 50 mg PO BEDTIME [facility] Last Admin: 07/08/17 20:13 Dose: 50 mg Bacitracin (Bacitracin Ointment*) 1 applic TOPICAL DAILY [facility] Last Admin: 07/09/17 08:16 Dose: Not Given Docusate Sodium (Colace Cap*) 200 mg PO BID [facility] Last Admin: 07/09/17 08:16 Dose: Not Given Furosemide (Lasix Tab*) 20 mg PO 0900 [facility] Last Admin: 07/09/17 08:17 Dose: Not Given Hydralazine HCl (Apresoline Iv*) 10 mg IV Q4H PRN PRN Reason: Systolic >170 Last Admin: 07/09/17 00:29 Dose: 10 mg Ceftriaxone Sodium 2,000 mg/ (Sterile Water) 20 mls @ 40 mls/hr IVPB Q24H [facility] Last Admin: 07/08/17 13:12 Dose: 40 mls/hr Lactated Ringer's (Lactated Ringers 1000 Ml Bag*) 1,000 mls @ 125 mls/hr IV PER RATE [facility] Last Admin: 07/09/17 05:58 Dose: 125 mls/hr Melatonin (Melatonin (Nf)) 3 mg PO BEDTIME [facility] Last Admin: 07/08/17 20:14 Dose: 3 mg Naloxone HCl (Narcan*) 0.08 mg IV Q2M PRN PRN Reason: severe induced resp depression Stop: 07/10/17 10:48 Omeprazole (Prilosec Cap*) 20 mg PO DAILY@0600 [facility] Last Admin: 07/09/17 05:23 Dose: 20 mg Ondansetron HCl (Zofran Inj*) 4 mg IV Q6H PRN PRN Reason: NAUSEA Oxycodone HCl (Roxycodone Tab*) 5 mg PO Q4H PRN PRN Reason: PAIN Last Admin: 07/09/17 12:13 Dose: 5 mg Pramipexole Dihydrochloride (Mirapex Tab*) 0.25 mg PO TID [facility] Last Admin: 07/09/17 08:17 Dose: 0.25 mg Pregabalin (Lyrica Cap(*)) 50 mg PO TID [facility] Last Admin: 07/09/17 08:17 Dose: 50 mg Tramadol HCl (Ultram*) 50 mg PO Q6HR PRN PRN Reason: PAIN Last Admin: 07/08/17 20:35 Dose: 50 mg Vital Signs - 8 hr 07/09/17 07/09/17 07/09/17 07:22 08:00 08:17 Temperature 97.9 F Pulse Rate 54 Respiratory 16 18 18 Rate Blood Pressure 143/81 (mmHg) O2 Sat by Pulse 97 97 Oximetry 07/09/17 07/09/17 07/09/17 11:37 11:40 11:45 Temperature 96.8 F Pulse Rate 48 49 50 Respiratory 20 22 18 Rate Blood Pressure 125/51 119/55 112/48 (mmHg) O2 Sat by Pulse 97 99 97 Oximetry 07/09/17 07/09/17 07/09/17 12:00 12:13 12:15 Temperature Pulse Rate 56 50 Respiratory 16 14 14 Rate Blood Pressure 144/74 149/90 (mmHg) O2 Sat by Pulse 97 96 Oximetry Oxygen Devices in Use Now: None Appearance: Patient is a 72yo male who appears stated age and is sitting in the bed in [facility]. Eyes: No Scleral Icterus, PERRLA Ears/Nose/Mouth/Throat: NL Teeth, Lips, Gums, Clear Oropharnyx, Mucous Membranes Moist Neck: NL Appearance and Movements; NL JVP, Trachea Midline Respiratory: Symmetrical Chest Expansion and Respiratory Effort, Clear to Auscultation Cardiovascular: NL Sounds; No Murmurs; No JVD, RRR, - - 2+ edema in B/L LE. 2+ pulses in B/L DP/PT areas. Abdominal: NL Sounds; No Tenderness; No Distention, No Hepatosplenomegaly Lymphatic: No Cervical Adenopathy Extremities: No Edema, No Clubbing, Cyanosis Skin: No Nodules or Sclerosis, - - Ulcers on feet covered with bulky dressings through which serosanguinous drainage is leaking. Neurological: Alert and Oriented x 3, NL Muscle Strength and Tone, - - CN II- XII intact. Decreased sensation in hands and feet in stocking/glove pattern. Result Diagrams: 07/09/17 05:42 07/09/17 05:42 Assess/Plan/Problems-Billing Assessment: Mr. Suggs is a 72 yo M with a PMH of chronic B LE venous stasis who was admitted on 07/05/17 with bilateral lower extremity ulcers, L > R with concern for osteomyelitis. Patient is on IV Ceftriaxone and is scheduled for left foot transmetatarsal amputation tomorrow. - Patient Problems (1) Streptococcal cellulitis Current Visit: Yes Status: Acute Code(s): L03.90 - CELLULITIS, UNSPECIFIED; B95.5 - UNSP STREPTOCOCCUS THE CAUSE OF DISEASES CLASSD [facility] SNOMED Code( s): 056141765 Comment: Leukocytosis resolved, afebrile, did not meet sepsis criteria. Strep bacteremia with staph and strep per wound culture. Has blisters, significant edema with ulcerations to both feet, L > R with concern for osteomyelitis. Recent JENNY showing good arterial flow but has history of venous disease and chronic lower extremity wounds. MRI showing cellulitis and myositis with possibility of osteo. Appreciate ID consult, plan for ceftriaxone. Discontinue Clindamycin. Wound care consult appreciated, plan for bacitracin and gauze. Ortho plan for transmetatarsal amputation on 07/09. (2) Hypertension Current Visit: Yes Status: Acute Code(s): I10 - ESSENTIAL (PRIMARY) HYPERTENSION SNOMED Code(s): 20118695 Comment: SBP decreased to 100-140 SBP range, improved since admission. Continue atenolol (3) Lower extremity edema Current Visit: Yes Status: Acute Code(s): R60.0 - LOCALIZED EDEMA SNOMED Code(s): 880026824 Comment: Start routine furosemide in AM to avoid disrupting sleep, continue wrapping LE, keep elevated. (4) Peripheral neuropathy Current Visit: Yes Status: Acute Code(s): G62.9 - POLYNEUROPATHY, UNSPECIFIED SNOMED Code(s): 091082822 Comment: Continue pregabalin and amitriptyline. Unknown cause, likely from alcohol abuse. Has previously been evaluated by laboratory testing and nerve conduction studies. (5) Restless leg syndrome Current Visit: Yes Status: Acute Comment: Continue pramipexole. (6) DVT prophylaxis Current Visit: Yes Status: Acute Code(s): QVZ3010 - SNOMED Code(s): 039828469 Comment: Resume heparin postoperatively. (7) Full code status Current Visit: Yes Status: Acute Code(s): Z78.9 - OTHER SPECIFIED HEALTH STATUS SNOMED Code(s): 636854618 Comment: Status and Disposition: Inpatient. Anticipate discharge to home when medically stable.
--- NOTE | 2017-07-09 14:07 | OP ---
Operative Report - Blank - Operative Report Date of Operation: 07/09/17 Note: PATIENT: Mark Suggs DATE OF : 49 DATE OF SURGERY: 07/09/17 SURGEON: Isidro Chan MD HAND I CUTTER: FANG Burch, whos assistance was necessary for positioning, retraction, help with instrumentation, and closure. ANESTHESIOLOGIST: Dr. Cheek PREOPERATIVE DIAGNOSIS: Left forefoot infection and left Achilles contracture POSTOPERATIVE DIAGNOSIS: Left forefoot infection and left Achilles contracture OPERATION: 1. Left foot transmetatarsal amputation 2. Left Achilles tendon lengthening ANESTHESIA: GETA IMPLANTS: none TOURNIQUET TIME: Less than 1 hour with a well-padded thigh tourniquet at 250mmHg. SPECIMENS: Foot sent to pathology ESTIMATED BLOOD LOSS: minimal COMPLICATIONS: none STATUS: Stable from the operating room to the recovery room and then back to the hospital floor. INDICATIONS FOR PROCEDURE: Mark has an advanced ulceration and forefoot infection on the left foot as well as an Achilles tendon contracture. Both operative and non operative treatment alternatives were reviewed. Further, the nature and risks of surgery were reviewed in careful detail. Our discussions regarding the risks of surgery included, but were not limited to, infection, wound problems, nerve injury, neuroma, RSD, persistent symptoms, blood clot, persistent or worsening infection , phantom limb pain, failure of the surgery, need for further amputation, and even the remote chance of catastrophic complication, including loss of limb. DESCRIPTION OF PROCEDURE: The patient was seen in the preoperative holding unit and informed written consent was obtained. The appropriate extremity was marked. The patient was then brought to the operating room and carefully positioned on the operating room table. Anesthesia was induced. All bony prominences were padded with great care. A well-padded thigh tourniquet was placed. A chlorhexidine based pre- scrub was performed followed by a chloraprep prep and drape in standard sterile fashion. A surgical safety pause was then conducted in which we confirmed the appropriate patient, extremity, planned procedure, availability of equipment, indication and administration of prophylactic antibiotics, and DVT prophylaxis in the form of a compression boot on the non-surgical extremity. We began with Esmarch exsanguination of the limb, avoiding the involved foot, and inflated the tourniquet. We utilized a fish-mouth incision at the forefoot. I dissected down through the dorsal forefoot to the level of the metatarsals. Fluoroscopy was utilized to confirm the level of the amputation. An oscillating saw was used to osteotomize all five metatarsals. These were beveled to decrease prominence plantarly. A rongeur and rasp were used to round and smooth the bone edges. The plantar half of the incision was completed and forefoot was then amputated. The foot was sent to pathology. The remaining tissue appeared healthy and viable. I then turned my attention to the Achilles tendon to prevent a progressive equinus contracture and overload of the amputation stump. I performed a triple- cut percutaneous tendon lengthening of the Achilles tendon utilizing a 15-blade scalpel. The ankle was then dorsiflexed confirming increased range of motion with dorsiflexion. At this point, the tourniquet was deflated. Hemostasis was obtained. We irrigated copiously. All remain tissue appeared healthy and viable. We closed meticulously in layers utilizing 0 Vicryl for the deep layer, 3-0 Monocryl for the subdermal layer, and 3-0 nylon and kip for the skin. There were no bony prominences appreciated beneath the skin after closure. A sterile dressing was then applied followed by a splint with the ankle in neutral alignment. The patient was then awakened from anesthesia and transferred to the recovery room in stable condition. There were no complications. All needle and sponge counts were correct at the end of the case. ATTESTATION: I attest I was present and scrubbed and performed the critical portions of the procedure myself. POSTOPERATIVE PLAN: The patient will remain [id number] in the splint and will follow up will be in two weeks for a wound check, but we will likely leave the sutures in for 3-4 weeks. Antibiotic treatment will be guided by the infectious disease service.
[2017-07-09] MEDS: cefTRIAXone 2000 MG SYRINGE IVPB Q24H IVPB SCH ×2 (14:21)
[2017-07-09] MEDS: Atenolol TAB* 50 MG PO SCH (21:27)
[2017-07-09] MEDS: Amitriptyline TAB* 25 MG PO SCH (21:27)
[2017-07-09] MEDS: CMCS: Melatonin (NF) 3 MG TAB PO SCH (21:29)
[2017-07-09] MEDS: traMADol TAB* 50 MG PO PRN (21:34)
[2017-07-10] MEDS: oxyCODONE TAB* 5 MG TAB PO PRN (06:16)
[2017-07-10] MEDS: Omeprazole CAP* 20 MG PO SCH (06:16)
[2017-07-10 07:31] LABS: ABS Basophils 0.1 10^3/ul (0-0.2); ABS Eosinophils 0.7 10^3/ul (0-0.6); ABS Monocytes 1.2 10^3/ul (0-0.8); ABS Neutrophils 6.4 10^3/ul (1.5-7.7); ABS Nucleated RBC 0 10^3/ul; Eosinophil % 6.9 % (0-6); Hematocrit 38 % (42-52); Mean Corpuscular HGB Conc 34 g/dl (31-36); Mean Corpuscular Hemoglobin 29 pg (27-31); Mean Corpuscular Volume 86 fL (80-94); Mean Platelet Volume 8 um3 (7.4-10.4); Nucleated Red Blood Cells % 0; Platelet Count 191 10^3/ul (150-450); Red Blood Count 4.45 10^6/ul (4.0-5.4); Red Cell Distribution Width 15 % (10.5-15); White Blood Count 10.3 10^3/ul (3.5-10.8)
[2017-07-10 07:47] LABS: EGFR Non-African American 73.9 (>60)
[2017-07-10] MEDS: Docusate CAP* 100 MG PO SCH ×2 (08:42→21:26)
[2017-07-10] MEDS: Furosemide TAB* 20 MG PO SCH (08:43)
[2017-07-10] MEDS: Pregabalin CAP(*) 50 MG PO SCH ×3 (08:44→20:54)
[2017-07-10] MEDS: Pramipexole TAB* 0.5 MG PO SCH ×3 (08:44→20:55)
[2017-07-10] MEDS: Bacitracin OINTMENT* 0.5% 0.5 oz TUBE TOPICAL SCH (08:45)
--- NOTE | 2017-07-10 10:41 | PN ---
Progress Note - Progress Note Date of Service: 07/10/17 SOAP: Subjective: CC: foot infection HPI: 72 year old man with neuropathy developed fever, myalgia; left foot swelling. Fever resolved, left 2nd and 3rd toes continue to get larger, no pain. Had TMA, which he tolerated well. No fever, rash, or diarrhea. Objective: Vital Signs Temp 36.8 C 07/10/17 07:25 Pulse 62 07/10/17 07:25 Resp 16 07/10/17 08:48 BP 148/71 07/10/17 07:25 Pulse Ox 94 07/10/17 07:48 Intake & Output 07/09/17 07/10/17 07/10/17 18:59 06:59 18:59 Intake Total 1500 0 700 Output Total 420 950 Balance 1080 -950 700 Intake: IV Fluids 1500 LR 1500 Oral 0 0 700 Output: Urine 400 950 Estimated Blood Loss 20 Other: # Bowel Movements 0 # Voids 1 Gen:awake, no distress HEENT:PERRL, MMM Heart:RRR no murmur Lungs:CTA BL Abd:+BS NTND soft Skin: no rash MSK: left foot wrapper; R lower leg trace erythema and scale Assessment: 1. Grp A Strep bacteremia, due to left foot necrotizing cellulitis and myositis s/p TMA 2. peripheral neuropathy 3. obesity Plan: 1. continue ceftriaxone day 4/7 then clindamycin 300 mg po TID x14 days for discharge 35 minutes floor time >50% face to face discussing antibiotic plans Discussed with Tone HEADLEY
--- NOTE | 2017-07-10 12:32 | PN ---
Subjective Date of Service: 07/10/17 Interval History: Patient complains of 3/10 pain in foot and 6/10 pain in back which is chronic and usually exacerbated by immobility. Patient denies F/C, N/V, abdominal pain, diarrhea, constipation, CP, SOB, Rash, or other pain. Patient has significant financial concerns and would like to avoid any treatment which would be too expensive. Family History: Unchanged from Admission Social History: Unchanged from Admission Past Medical History: Unchanged from Admission Objective Active Medications: Acetaminophen (Tylenol Tab*) 650 mg PO Q6H PRN PRN Reason: FEVER/PAIN Amitriptyline HCl (Elavil Tab*) 25 mg PO BEDTIME [facility] Last Admin: 07/09/17 21:27 Dose: 25 mg Atenolol (Tenormin Tab*) 50 mg PO BEDTIME [facility] Last Admin: 07/09/17 21:27 Dose: 50 mg Bacitracin (Bacitracin Ointment*) 1 applic TOPICAL DAILY [facility] Last Admin: 07/10/17 08:45 Dose: Not Given Docusate Sodium (Colace Cap*) 200 mg PO BID [facility] Last Admin: 07/10/17 08:42 Dose: Not Given Furosemide (Lasix Tab*) 20 mg PO 0900 [facility] Last Admin: 07/10/17 08:43 Dose: Not Given Hydralazine HCl (Apresoline Iv*) 10 mg IV Q4H PRN PRN Reason: Systolic >170 Last Admin: 07/09/17 00:29 Dose: 10 mg Ceftriaxone Sodium 2,000 mg/ (Sterile Water) 20 mls @ 40 mls/hr IVPB Q24H [facility] Last Admin: 07/09/17 14:21 Dose: 40 mls/hr Melatonin (Melatonin (Nf)) 3 mg PO BEDTIME [facility] Last Admin: 07/09/17 21:29 Dose: 3 mg Omeprazole (Prilosec Cap*) 20 mg PO DAILY@0600 [facility] Last Admin: 07/10/17 06:16 Dose: 20 mg Ondansetron HCl (Zofran Inj*) 4 mg IV Q6H PRN PRN Reason: NAUSEA Oxycodone HCl (Roxycodone Tab*) 5 mg PO Q4H PRN PRN Reason: PAIN Last Admin: 07/10/17 06:16 Dose: 5 mg Pramipexole Dihydrochloride (Mirapex Tab*) 0.25 mg PO TID [facility] Last Admin: 07/10/17 08:44 Dose: 0.25 mg Pregabalin (Lyrica Cap(*)) 50 mg PO TID [facility] Last Admin: 07/10/17 08:44 Dose: 50 mg Tramadol HCl (Ultram*) 50 mg PO Q6HR PRN PRN Reason: PAIN Last Admin: 07/09/17 21:34 Dose: 50 mg Vital Signs - 8 hr 07/10/17 07/10/17 07/10/17 06:16 07:25 07:48 Temperature 98.3 F Pulse Rate 62 Respiratory 18 18 18 Rate Blood Pressure 148/71 (mmHg) O2 Sat by Pulse 94 94 Oximetry 07/10/17 07/10/17 07/10/17 07:49 08:44 08:48 Temperature Pulse Rate Respiratory 18 16 16 Rate Blood Pressure (mmHg) O2 Sat by Pulse Oximetry 07/10/17 11:16 Temperature Pulse Rate Respiratory 16 Rate Blood Pressure (mmHg) O2 Sat by Pulse Oximetry Oxygen Devices in Use Now: None Appearance: Patient is a 72yo male who appears stated age and is sitting in the bed in [facility]. Eyes: No Scleral Icterus, PERRLA Ears/Nose/Mouth/Throat: NL Teeth, Lips, Gums, Clear Oropharnyx, Mucous Membranes Moist Neck: NL Appearance and Movements; NL JVP, Trachea Midline Respiratory: Symmetrical Chest Expansion and Respiratory Effort, Clear to Auscultation Cardiovascular: NL Sounds; No Murmurs; No JVD, RRR, - - 2+ edema in B/L LE edema. Abdominal: NL Sounds; No Tenderness; No Distention, No Hepatosplenomegaly Lymphatic: No Cervical Adenopathy Extremities: No Edema, No Clubbing, Cyanosis Skin: No Rash or Ulcers, No Nodules or Sclerosis Neurological: Alert and Oriented x 3, NL Sensation, NL Muscle Strength and Tone , - Result Diagrams: 07/10/17 06:42 07/10/17 06:42 Assess/Plan/Problems-Billing Assessment: Mr. Suggs is a 72 yo M with a PMH of chronic B LE venous stasis who was admitted on 07/05/17 with bilateral lower extremity ulcers, L > R with concern for osteomyelitis. Patient is on IV Ceftriaxone s/p transmetatarsal amputation. - Patient Problems (1) Streptococcal cellulitis Current Visit: Yes Status: Acute Code(s): L03.90 - CELLULITIS, UNSPECIFIED; B95.5 - UNSP STREPTOCOCCUS THE CAUSE OF DISEASES CLASSD [facility] SNOMED Code( s): 649099581 Comment: Leukocytosis resolved, afebrile, did not meet sepsis criteria. Strep bacteremia with staph and strep per wound culture. Has blisters, significant edema with ulcerations to both feet, L > R with concern for osteomyelitis. Recent JENNY showing good arterial flow but has history of venous disease and chronic lower extremity wounds. MRI showing cellulitis and myositis with possibility of osteo. Appreciate ID consult, plan for ceftriaxone for 1 week and then clindamycin TID for 2 more weeks. Wound care consult appreciated, plan for bacitracin and gauze. S/P TMA 07/09. (2) Hypertension Current Visit: Yes Status: Acute Code(s): I10 - ESSENTIAL (PRIMARY) HYPERTENSION SNOMED Code(s): 36102438 Comment: SBP decreased to 100-140 SBP range, improved since admission. Continue atenolol (3) Lower extremity edema Current Visit: Yes Status: Acute Code(s): R60.0 - LOCALIZED EDEMA SNOMED Code(s): 128150699 Comment: Start routine furosemide in AM to avoid disrupting sleep, continue wrapping LE, keep elevated. (4) Peripheral neuropathy Current Visit: Yes Status: Acute Code(s): G62.9 - POLYNEUROPATHY, UNSPECIFIED SNOMED Code(s): 919379343 Comment: Continue pregabalin and amitriptyline. Unknown cause, likely from alcohol abuse. Has previously been evaluated by laboratory testing and nerve conduction studies. (5) Restless leg syndrome Current Visit: Yes Status: Acute Comment: Continue pramipexole. (6) DVT prophylaxis Current Visit: Yes Status: Acute Code(s): WFY6320 - SNOMED Code(s): 442673902 Comment: Heparin SubQ. (7) Full code status Current Visit: Yes Status: Acute Code(s): Z78.9 - OTHER SPECIFIED HEALTH STATUS SNOMED Code(s): 620970865 Comment: Status and Disposition: Inpatient. Anticipate discharge to home after completion of IV antibiotics.
[2017-07-10] MEDS: Heparin VIAL(*) 5000 UNITS/ML VIAL (FIVE THOUSAND) SUBCUT SCH ×2 (13:57→20:58)
[2017-07-10] MEDS: cefTRIAXone 2000 MG SYRINGE IVPB Q24H IVPB SCH ×2 (14:05)
--- NOTE | 2017-07-10 14:29 | PN ---
Progress Note - Progress Note Date of Service: 07/10/17 SOAP: Subjective: 72 y/o male s/p transmet amp L with achillies lengthening 07/[address] Chan. Patient c/o intermittent pain, controlled with pain meds. Concerned about ulcer on R foot. no questions. VSS afebrile Objective: General- SItting in bed comfortably, NAD, AO. MSK- LLE- skin above dressing without erythema, induration, no pain, dressing intact. R foot with superficial, beefy red ulceration on plantar surface, no erythema. Vital Signs Temp 98.3 F 07/10/17 07:25 Pulse 62 07/10/17 07:25 Resp 16 07/10/17 13:57 BP 148/71 07/10/17 07:25 Pulse Ox 94 07/10/17 07:48 Intake & Output 07/09/17 07/10/17 07/10/17 18:59 06:59 18:59 Intake Total 1500 0 810 Output Total 420 950 Balance 1080 -950 810 Intake: IV Fluids 1500 LR 1500 Oral 0 0 810 Output: Urine 400 950 Estimated Blood Loss 20 Other: Estimated Void Medium # Bowel Movements 0 # Voids 1 2 Assessment: [] Stable 72 y/o male s/p transmet amp L with achillies lengthening 07/[address] Chan. Plan: []- DVT prophylaxis= heparin in house, ASA bid at home - Continue non-weight bearing - Splint to be changed on Thursday - ABX per ID Acetaminophen (Tylenol Tab*) 650 mg PO Q6H PRN PRN Reason: FEVER/PAIN Amitriptyline HCl (Elavil Tab*) 25 mg PO BEDTIME [facility] Last Admin: 07/09/17 21:27 Dose: 25 mg Atenolol (Tenormin Tab*) 50 mg PO BEDTIME [facility] Last Admin: 07/09/17 21:27 Dose: 50 mg Bacitracin (Bacitracin Ointment*) 1 applic TOPICAL DAILY [facility] Last Admin: 07/10/17 08:45 Dose: Not Given Docusate Sodium (Colace Cap*) 200 mg PO BID [facility] Last Admin: 07/10/17 08:42 Dose: Not Given Furosemide (Lasix Tab*) 20 mg PO 0900 [facility] Last Admin: 03/16/18 08:43 Dose: Not Given Heparin Sodium (Porcine) (Heparin Vial(*)) 5,000 units SUBCUT Q8HR [facility] Last Admin: 07/10/17 13:57 Dose: 5,000 units Hydralazine HCl (Apresoline Iv*) 10 mg IV Q4H PRN PRN Reason: Systolic >170 Last Admin: 07/09/17 00:29 Dose: 10 mg Ceftriaxone Sodium 2,000 mg/ (Sterile Water) 20 mls @ 40 mls/hr IVPB Q24H [facility] Last Admin: 07/10/17 14:05 Dose: 40 mls/hr Melatonin (Melatonin (Nf)) 3 mg PO BEDTIME [facility] Last Admin: 07/09/17 21:29 Dose: 3 mg Omeprazole (Prilosec Cap*) 20 mg PO DAILY@0600 [facility] Last Admin: 07/10/17 06:16 Dose: 20 mg Ondansetron HCl (Zofran Inj*) 4 mg IV Q6H PRN PRN Reason: NAUSEA Oxycodone HCl (Roxycodone Tab*) 5 mg PO Q4H PRN PRN Reason: PAIN Last Admin: 07/10/17 06:16 Dose: 5 mg Pramipexole Dihydrochloride (Mirapex Tab*) 0.25 mg PO TID [facility] Last Admin: 07/10/17 13:56 Dose: 0.25 mg Pregabalin (Lyrica Cap(*)) 50 mg PO TID [facility] Last Admin: 07/10/17 13:57 Dose: 50 mg Tramadol HCl (Ultram*) 50 mg PO Q6HR PRN PRN Reason: PAIN Last Admin: 07/09/17 21:34 Dose: 50 mg
[2017-07-10] MEDS: traMADol TAB* 50 MG PO PRN (19:18)
[2017-07-10] MEDS: Atenolol TAB* 50 MG PO SCH (20:53)
[2017-07-10] MEDS: CMCS: Melatonin (NF) 3 MG TAB PO SCH (20:57)
[2017-07-10] MEDS: Amitriptyline TAB* 25 MG PO SCH (20:57)
[2017-07-11] MEDS: Omeprazole CAP* 20 MG PO SCH ×2 (06:27→06:33)
[2017-07-11] MEDS: Heparin VIAL(*) 5000 UNITS/ML VIAL (FIVE THOUSAND) SUBCUT SCH ×3 (06:33→21:45)
[2017-07-11] MEDS: oxyCODONE TAB* 5 MG TAB PO PRN ×2 (07:29→21:44)
[2017-07-11] MEDS: Furosemide TAB* 20 MG PO SCH (07:35)
[2017-07-11] MEDS: Bacitracin OINTMENT* 0.5% 0.5 oz TUBE TOPICAL SCH (07:35)
[2017-07-11] MEDS: Docusate CAP* 100 MG PO SCH ×3 (07:35→22:14)
[2017-07-11] MEDS: Pregabalin CAP(*) 50 MG PO SCH ×3 (09:14→21:43)
[2017-07-11] MEDS: Pramipexole TAB* 0.5 MG PO SCH ×3 (09:14→21:41)
--- NOTE | 2017-07-11 10:06 | PN ---
Subjective Date of Service: 07/11/17 Interval History: Pt reports pain on top of Left foot this morning which was relived with pain medication. He reports he feels his pain is overall being controlled. Denies any feelings of over sedation, confusion with narcotics, Reports good appetite. Normal BMs everyday. No constipation/.diarrhea. Denies any fever or chills. Overall he feels that is is doing better everyday., Family History: Unchanged from Admission Social History: Unchanged from Admission Past Medical History: Unchanged from Admission Objective Active Medications: Acetaminophen (Tylenol Tab*) 650 mg PO Q6H PRN PRN Reason: FEVER/PAIN Amitriptyline HCl (Elavil Tab*) 25 mg PO BEDTIME [facility] Last Admin: 07/10/17 20:57 Dose: 25 mg Atenolol (Tenormin Tab*) 50 mg PO BEDTIME [facility] Last Admin: 07/10/17 20:53 Dose: 50 mg Bacitracin (Bacitracin Ointment*) 1 applic TOPICAL DAILY [facility] Last Admin: 07/11/17 07:35 Dose: Not Given Docusate Sodium (Colace Cap*) 200 mg PO BID [facility] Last Admin: 07/11/17 07:35 Dose: Not Given Furosemide (Lasix Tab*) 20 mg PO 0900 [facility] Last Admin: 07/11/17 07:35 Dose: Not Given Heparin Sodium (Porcine) (Heparin Vial(*)) 5,000 units SUBCUT Q8HR [facility] Last Admin: 07/11/17 06:33 Dose: 5,000 units Hydralazine HCl (Apresoline Iv*) 10 mg IV Q4H PRN PRN Reason: Systolic >170 Last Admin: 07/09/17 00:29 Dose: 10 mg Ceftriaxone Sodium 2,000 mg/ (Sterile Water) 20 mls @ 40 mls/hr IVPB Q24H [facility] Last Admin: 07/10/17 14:05 Dose: 40 mls/hr Melatonin (Melatonin (Nf)) 3 mg PO BEDTIME [facility] Last Admin: 07/10/17 20:57 Dose: 3 mg Omeprazole (Prilosec Cap*) 20 mg PO DAILY@0600 [facility] Last Admin: 07/11/17 06:33 Dose: Not Given Ondansetron HCl (Zofran Inj*) 4 mg IV Q6H PRN PRN Reason: NAUSEA Oxycodone HCl (Roxycodone Tab*) 5 mg PO Q4H PRN PRN Reason: PAIN Last Admin: 07/11/17 07:29 Dose: 5 mg Pramipexole Dihydrochloride (Mirapex Tab*) 0.25 mg PO TID [facility] Last Admin: 07/11/17 09:14 Dose: 0.25 mg Pregabalin (Lyrica Cap(*)) 50 mg PO TID [facility] Last Admin: 07/11/17 09:14 Dose: 50 mg Tramadol HCl (Ultram*) 50 mg PO Q6HR PRN PRN Reason: PAIN Last Admin: 07/10/17 19:18 Dose: 50 mg Vital Signs - 8 hr 07/11/17 07/11/17 07/11/17 03:11 07:29 07:50 Temperature 98.6 F 97.7 F Pulse Rate 53 Respiratory 18 16 17 Rate Blood Pressure 154/60 158/85 (mmHg) O2 Sat by Pulse 94 100 Oximetry 07/11/17 07/11/17 07/11/17 09:14 09:15 09:33 Temperature Pulse Rate Respiratory 18 18 20 Rate Blood Pressure (mmHg) O2 Sat by Pulse 100 Oximetry Oxygen Devices in Use Now: None Appearance: obese male sitting up in bed visting friends in NAD. A+O x3 Eyes: No Scleral Icterus, PERRLA Ears/Nose/Mouth/Throat: NL Teeth, Lips, Gums Neck: NL Appearance and Movements; NL JVP Respiratory: Symmetrical Chest Expansion and Respiratory Effort, Clear to Auscultation Cardiovascular: NL Sounds; No Murmurs; No JVD, RRR Abdominal: NL Sounds; No Tenderness; No Distention, - - obese Extremities: No Clubbing, Cyanosis, - - left foot has soft cast dressing - CD+ I. Right foot has CD+I dressing - toes warm, pink. left & right popliteal pulses Neurological: Alert and Oriented x 3 Lines/Tubes/Other Access: Clean, Dry and Intact Peripheral IV Nutrition: Taking PO's Result Diagrams: 07/10/17 06:42 07/10/17 06:42 Assess/Plan/Problems-Billing Assessment: Mr. Suggs is a 72 yo M with a PMH of chronic B LE venous stasis who was admitted on 07/05/17 with bilateral lower extremity ulcers, L > R with concern for osteomyelitis. Patient is on IV Ceftriaxone s/p transmetatarsal amputation with Achilles lengthening - Patient Problems (1) Streptococcal cellulitis Comment: S/P TMA with achillies lengthening 07/09. Doing well. NWB. Leukocytosis resolved, afebrile, did not meet sepsis criteria. Group A Strep bacteremia with staph and strep per wound culture. Has blisters, significant edema with ulcerations to both feet, L > R with concern for osteomyelitis. Recent JENNY showing good arterial flow but has history of venous disease and chronic lower extremity wounds. MRI showing cellulitis and myositis with possibility of osteo. Appreciate ID consult, plan for ceftriaxone Day 08/31, then clindamycin 300 mg po TID for 14 days Wound care consult appreciated, plan for bacitracin and gauze. (2) Hypertension Comment: Continues to have SBP 140-180's - only on atenolol at home 50 mg QHS. Continue atenolol home dose, add norvasc 5 mg po daily. Continue to monitor blood pressure. May need new prescription at discharge. (3) Lower extremity edema Comment: Start routine furosemide in AM to avoid disrupting sleep, continue wrapping LE, keep elevated. (4) Peripheral neuropathy Comment: Continue pregabalin and amitriptyline. Unknown cause, likely from alcohol abuse. Has previously been evaluated by laboratory testing and nerve conduction studies. (5) Restless leg syndrome Comment: Continue pramipexole. (6) DVT prophylaxis Comment: Heparin SubQ. (7) Full code status Comment: Status and Disposition: Inpatient. Anticipate discharge to home after completion of IV antibiotics.
[2017-07-11] MEDS ORDERED: amLODIPine TAB* 5 MG PO ONE (11:13)
--- NOTE | 2017-07-11 13:24 | PN ---
Progress Note - Progress Note Date of Service: 07/11/17 SOAP: Subjective: Pt lying comfortably in bed. Complains of muscle spasms last night. Pain well controlled with pain meds. No questions today. Denies F/C Vital Signs: Temp Pulse Resp BP Pulse Ox 98.5 F 58 18 145/59 97 07/11/17 11:26 07/11/17 11:26 07/11/17 11:53 07/11/17 11:26 07/11/17 11:26 Laboratory Last Values WBC 10.3 10^3/ul (3.5-10.8) 07/10/17 06:42 RBC 4.45 10^6/ul (4.0-5.4) 07/10/17 06:42 Hgb 13.0 g/dl (14.0-18.0) L 07/10/17 06:42 Hct 38 % (42-52) L 07/10/17 06:42 MCV 86 fL (80-94) 07/10/17 06:42 MCH 29 pg (27-31) 07/10/17 06:42 MCHC 34 g/dl (31-36) 07/10/17 06:42 RDW 15 % (10.5-15) 07/10/17 06:42 Plt Count 191 10^3/ul (150-450) 07/10/17 06:42 MPV 8 um3 (7.4-10.4) 07/10/17 06:42 Neut % (Auto) 61.8 % (38-83) 07/10/17 06:42 Lymph % (Auto) 19.0 % (25-47) L 07/10/17 06:42 [place] % (Auto) 11.6 % (0-7) H 07/10/17 06:42 Eos % (Auto) 6.9 % (0-6) H 07/10/17 06:42 Baso % (Auto) 0.7 % (0-2) 07/10/17 06:42 Absolute Neuts (auto) 6.4 10^3/ul (1.5-7.7) 07/10/17 06:42 Absolute Lymphs (auto) 2.0 10^3/ul (1.0-4.8) 07/10/17 06:42 Absolute Monos (auto) 1.2 10^3/ul (0-0.8) H 07/10/17 06:42 Absolute Eos (auto) 0.7 10^3/ul (0-0.6) H 07/10/17 06:42 Absolute Basos (auto) 0.1 10^3/ul (0-0.2) 07/10/17 06:42 Absolute Nucleated RBC 0 10^3/ul 07/10/17 06:42 Nucleated RBC % 0 07/10/17 06:42 INR (Anticoag Therapy) 1.01 (0.77-1.02) 07/09/17 05:42 APTT 33.9 seconds (26.0-36.3) 07/09/17 05:42 Sodium 135 mmol/L (133-145) 07/10/17 06:42 Potassium 4.2 mmol/L (3.5-5.0) 07/10/17 06:42 Chloride 102 mmol/L (101-111) 07/10/17 06:42 Carbon Dioxide 26 mmol/L (22-32) 07/10/17 06:42 Anion Gap 7 mmol/L (2-11) 07/10/17 06:42 BUN 16 mg/dL (6-24) 07/10/17 06:42 Creatinine 1.00 mg/dL (0.67-1.17) 07/10/17 06:42 Est GFR ( Amer) 95.0 (>60) 07/10/17 06:42 Est GFR (Non-Af Amer) 73.9 (>60) 07/10/17 06:42 BUN/Creatinine Ratio 16.0 (8-20) 07/10/17 06:42 Glucose 90 mg/dL (70-100) 07/10/17 06:42 Lactic Acid 0.9 mmol/L (0.5-2.0) 07/06/17 02:00 Calcium 8.6 mg/dL (8.6-10.3) 07/10/17 06:42 Magnesium 2.1 mg/dL (1.9-2.7) 07/10/17 06:42 Total Bilirubin 0.60 mg/dL (0.2-1.0) 07/06/17 02:00 AST 19 U/L (13-39) 07/06/17 02:00 ALT 16 U/L (7-52) 07/06/17 02:00 Alkaline Phosphatase 74 U/L (34-104) 07/06/17 02:00 C-Reactive Protein 51.62 mg/L (< 5.00) H 07/10/17 06:42 Total Protein 7.8 g/dL (6.4-8.9) 07/06/17 02:00 Albumin 3.4 g/dL (3.2-5.2) 07/06/17 02:00 Globulin 4.4 g/dL (2-4) H 07/06/17 02:00 Albumin/Globulin Ratio 0.8 (1-3) L 07/06/17 02:00 Urine Color Nicky 07/06/17 03:36 Urine Appearance Clear 07/06/17 03:36 Urine pH 5.0 (5-9) 07/06/17 03:36 Ur Specific [place] 1.034 (1.010-1.030) H 07/06/17 03:36 Urine Protein 2+(100 mg/dl) (Negative) A 07/06/17 03:36 Urine Ketones Negative (Negative) 07/06/17 03:36 Urine Blood 1+ (Negative) A 07/06/17 03:36 Urine Nitrate Negative (Negative) 07/06/17 03:36 Urine Bilirubin Negative (Negative) 07/06/17 03:36 Urine Urobilinogen Positive (Negative) A 07/06/17 03:36 Ur Leukocyte Esterase Negative (Negative) 07/06/17 03:36 Urine WBC (Auto) Trace(0-5/hpf) (Absent) 07/06/17 03:36 Urine RBC (Auto) Absent (Absent) 07/06/17 03:36 Ur Squamous Epith Cells Present (Absent) A 07/06/17 03:36 Urine Bacteria Absent (Absent) 07/06/17 03:36 Urine Glucose Negative (Negative) 07/06/17 03:36 Hepatitis A IgM Ab Nonreactive (Nonreactive) 07/06/17 15:30 Hep Bs Antigen Nonreactive (Nonreactive) 07/06/17 15:30 Hep B Core IgM Ab Nonreactive (Nonreactive) 07/06/17 15:30 Hepatitis C Antibody Nonreactive (Nonreactive) 07/06/17 15:30 HIV 1&2 Antibody Rapid Nonreactive (Nonreactive) 07/06/17 15:30 Objective: Splint/dressing C/D/I. Calves soft, Nontender. Skin above splint intact. Assessment: 72 yo male s/p Left foot transmet amp with Achilles tendon lengthening on by Dr. Chan Plan: NWB LLE Abx per ID DVT prophylaxis - Heparin inhouse, ASA when home Plan for splint change on Thursday
[2017-07-11] MEDS: cefTRIAXone 2000 MG SYRINGE IVPB Q24H IVPB SCH ×2 (13:31)
[2017-07-11] MEDS: traMADol TAB* 50 MG PO PRN (13:42)
[2017-07-11] MEDS: Atenolol TAB* 50 MG PO SCH (21:40)
[2017-07-11] MEDS: Acetaminophen TAB* 325 MG PO PRN (21:43)
[2017-07-11] MEDS: Amitriptyline TAB* 25 MG PO SCH (21:44)
[2017-07-11] MEDS: CMCS: Melatonin (NF) 3 MG TAB PO SCH (22:13)
[2017-07-12] MEDS: Heparin VIAL(*) 5000 UNITS/ML VIAL (FIVE THOUSAND) SUBCUT SCH ×3 (05:09→21:45)
[2017-07-12] MEDS: Omeprazole CAP* 20 MG PO SCH (05:10)
[2017-07-12 05:49] LABS: ABS Basophils 0.1 10^3/ul (0-0.2); ABS Eosinophils 0.9 10^3/ul (0-0.6); ABS Lymphocytes 2.1 10^3/ul (1.0-4.8); ABS Monocytes 0.9 10^3/ul (0-0.8); ABS Nucleated RBC 0 10^3/ul; Eosinophil % 12.7 % (0-6); Hematocrit 39 % (42-52); Hemoglobin 13.4 g/dl (14.0-18.0); Lymphocyte % 30.3 % (25-47); Mean Corpuscular HGB Conc 35 g/dl (31-36); Mean Corpuscular Hemoglobin 29 pg (27-31); Mean Corpuscular Volume 85 fL (80-94); Mean Platelet Volume 7 um3 (7.4-10.4); Nucleated Red Blood Cells % 0; Platelet Count 201 10^3/ul (150-450); Red Blood Count 4.58 10^6/ul (4.0-5.4); Red Cell Distribution Width 15 % (10.5-15)
[2017-07-12 05:58] LABS: EGFR Non-African American 77.4 (>60)
[2017-07-12] MEDS: Pramipexole TAB* 0.5 MG PO SCH ×3 (08:36→20:54)
[2017-07-12] MEDS: amLODIPine TAB* 5 MG PO SCH (08:37)
[2017-07-12] MEDS: Pregabalin CAP(*) 50 MG PO SCH ×3 (08:37→20:53)
[2017-07-12] MEDS: Docusate CAP* 100 MG PO SCH ×2 (08:38→19:55)
[2017-07-12] MEDS: Bacitracin OINTMENT* 0.5% 0.5 oz TUBE TOPICAL SCH (08:38)
[2017-07-12] MEDS: Furosemide TAB* 20 MG PO SCH (08:39)
[2017-07-12] MEDS: traMADol TAB* 50 MG PO PRN ×2 (08:43→20:54)
--- NOTE | 2017-07-12 11:46 | PN ---
Progress Note - Progress Note Date of Service: 07/12/17 SOAP: Subjective: Pt lying comfortably in bed. Pain well controlled. No complaints or questions. Denies F/C Vital Signs: Temp Pulse Resp BP Pulse Ox 97.1 F 55 18 126/69 97 07/12/17 07:33 07/12/17 07:33 07/12/17 10:31 07/12/17 07:33 07/12/17 07:33 Laboratory Last Values WBC 7.0 10^3/ul (3.5-10.8) 07/12/17 05:06 RBC 4.58 10^6/ul (4.0-5.4) 07/12/17 05:06 Hgb 13.4 g/dl (14.0-18.0) L 07/12/17 05:06 Hct 39 % (42-52) L 07/12/17 05:06 MCV 85 fL (80-94) 07/12/17 05:06 MCH 29 pg (27-31) 07/12/17 05:06 MCHC 35 g/dl (31-36) 07/12/17 05:06 RDW 15 % (10.5-15) 07/12/17 05:06 Plt Count 201 10^3/ul (150-450) 07/12/17 05:06 MPV 7 um3 (7.4-10.4) L 07/12/17 05:06 Neut % (Auto) 42.7 % (38-83) 07/12/17 05:06 Lymph % (Auto) 30.3 % (25-47) 07/12/17 05:06 [place] % (Auto) 13.5 % (0-7) H 07/12/17 05:06 Eos % (Auto) 12.7 % (0-6) H 07/12/17 05:06 Baso % (Auto) 0.8 % (0-2) 07/12/17 05:06 Absolute Neuts (auto) 3.0 10^3/ul (1.5-7.7) 07/12/17 05:06 Absolute Lymphs (auto) 2.1 10^3/ul (1.0-4.8) 07/12/17 05:06 Absolute Monos (auto) 0.9 10^3/ul (0-0.8) H 07/12/17 05:06 Absolute Eos (auto) 0.9 10^3/ul (0-0.6) H 07/12/17 05:06 Absolute Basos (auto) 0.1 10^3/ul (0-0.2) 07/12/17 05:06 Absolute Nucleated RBC 0 10^3/ul 07/12/17 05:06 Nucleated RBC % 0 07/12/17 05:06 INR (Anticoag Therapy) 1.01 (0.77-1.02) 07/09/17 05:42 APTT 33.9 seconds (26.0-36.3) 07/09/17 05:42 Sodium 135 mmol/L (133-145) 07/12/17 05:06 Potassium 4.1 mmol/L (3.5-5.0) 07/12/17 05:06 Chloride 100 mmol/L (101-111) L 07/12/17 05:06 Carbon Dioxide 30 mmol/L (22-32) 07/12/17 05:06 Anion Gap 5 mmol/L (2-11) 07/12/17 05:06 BUN 16 mg/dL (6-24) 07/12/17 05:06 Creatinine 0.96 mg/dL (0.67-1.17) 07/12/17 05:06 Est GFR ( Amer) 99.6 (>60) 07/12/17 05:06 Est GFR (Non-Af Amer) 77.4 (>60) 07/12/17 05:06 BUN/Creatinine Ratio 16.7 (8-20) 07/12/17 05:06 Glucose 100 mg/dL (70-100) 07/12/17 05:06 Lactic Acid 0.9 mmol/L (0.5-2.0) 07/06/17 02:00 Calcium 8.9 mg/dL (8.6-10.3) 07/12/17 05:06 Magnesium 2.1 mg/dL (1.9-2.7) 07/10/17 06:42 Total Bilirubin 0.60 mg/dL (0.2-1.0) 07/06/17 02:00 AST 19 U/L (13-39) 07/06/17 02:00 ALT 16 U/L (7-52) 07/06/17 02:00 Alkaline Phosphatase 74 U/L (34-104) 07/06/17 02:00 C-Reactive Protein 51.62 mg/L (< 5.00) H 07/10/17 06:42 Total Protein 7.8 g/dL (6.4-8.9) 07/06/17 02:00 Albumin 3.4 g/dL (3.2-5.2) 07/06/17 02:00 Globulin 4.4 g/dL (2-4) H 07/06/17 02:00 Albumin/Globulin Ratio 0.8 (1-3) L 07/06/17 02:00 Urine Color Nicky 07/06/17 03:36 Urine Appearance Clear 07/06/17 03:36 Urine pH 5.0 (5-9) 07/06/17 03:36 Ur Specific [place] 1.034 (1.010-1.030) H 07/06/17 03:36 Urine Protein 2+(100 mg/dl) (Negative) A 07/06/17 03:36 Urine Ketones Negative (Negative) 07/06/17 03:36 Urine Blood 1+ (Negative) A 07/06/17 03:36 Urine Nitrate Negative (Negative) 07/06/17 03:36 Urine Bilirubin Negative (Negative) 07/06/17 03:36 Urine Urobilinogen Positive (Negative) A 07/06/17 03:36 Ur Leukocyte Esterase Negative (Negative) 07/06/17 03:36 Urine WBC (Auto) Trace(0-5/hpf) (Absent) 07/06/17 03:36 Urine RBC (Auto) Absent (Absent) 07/06/17 03:36 Ur Squamous Epith Cells Present (Absent) A 07/06/17 03:36 Urine Bacteria Absent (Absent) 07/06/17 03:36 Urine Glucose Negative (Negative) 07/06/17 03:36 Hepatitis A IgM Ab Nonreactive (Nonreactive) 07/06/17 15:30 Hep Bs Antigen Nonreactive (Nonreactive) 07/06/17 15:30 Hep B Core IgM Ab Nonreactive (Nonreactive) 07/06/17 15:30 Hepatitis C Antibody Nonreactive (Nonreactive) 07/06/17 15:30 HIV 1&2 Antibody Rapid Nonreactive (Nonreactive) 07/06/17 15:30 Objective: Splint C/D/I. Calves soft, nontender. Skin intact above splint. Assessment: 72 yo male s/p Left foot transmet amp with Achilles tendon lengthening on by Dr. Chan Plan: NWB LLE Abx Per ID DVT prophylaxis - Heparin Plan for splint change tomorrow
--- NOTE | 2017-07-12 11:48 | PN ---
Subjective Date of Service: 07/12/17 Interval History: Patient seen and examined at bedside. Denies fever, chills, shortness of breath , chest discomfort, N/V/D. Pt states that his pain is controlled, he reports peripheral neuropathy and has no feeling from the legs down. Family History: Unchanged from Admission Social History: Unchanged from Admission Past Medical History: Unchanged from Admission Objective Active Medications: Acetaminophen (Tylenol Tab*) 650 mg PO Q6H PRN Reason: FEVER/PAIN Amitriptyline HCl (Elavil Tab*) 25 mg PO BEDTIME [facility] Amlodipine Besylate (Norvasc Tab*) 5 mg PO DAILY [facility] Atenolol (Tenormin Tab*) 50 mg PO BEDTIME [facility] Bacitracin (Bacitracin Ointment*) 1 applic TOPICAL DAILY [facility] Docusate Sodium (Colace Cap*) 200 mg PO BID [facility] Furosemide (Lasix Tab*) 20 mg PO 0900 [facility] Heparin Sodium (Porcine) (Heparin Vial(*)) 5,000 units SUBCUT Q8HR [facility] Hydralazine HCl (Apresoline Iv*) 10 mg IV Q4H PRN Reason: Systolic >170 Ceftriaxone Sodium 2,000 mg/ (Sterile Water) 20 mls @ 40 mls/hr IVPB Q24H [facility] Melatonin (Melatonin (Nf)) 3 mg PO BEDTIME [facility] Omeprazole (Prilosec Cap*) 20 mg PO DAILY@0600 [facility] Ondansetron HCl (Zofran Inj*) 4 mg IV Q6H PRN Reason: NAUSEA Oxycodone HCl (Roxycodone Tab*) 5 mg PO Q4H PRN Reason: PAIN Pramipexole Dihydrochloride (Mirapex Tab*) 0.25 mg PO TID [facility] Pregabalin (Lyrica Cap(*)) 50 mg PO TID [facility] Tramadol HCl (Ultram*) 50 mg PO Q6HR PRN Reason: PAIN Vital Signs - 8 hr 07/12/17 07/12/17 07/12/17 07:33 08:00 08:37 Temperature 97.1 F Pulse Rate 55 Respiratory 16 18 18 Rate Blood Pressure 126/69 (mmHg) O2 Sat by Pulse 97 Oximetry 07/12/17 07/12/17 07/12/17 08:43 10:30 10:31 Temperature Pulse Rate Respiratory 18 18 18 Rate Blood Pressure (mmHg) O2 Sat by Pulse Oximetry Oxygen Devices in Use Now: None Appearance: NAD, laying in bed Ears/Nose/Mouth/Throat: Mucous Membranes Moist Respiratory: Symmetrical Chest Expansion and Respiratory Effort, Clear to Auscultation Cardiovascular: NL Sounds; No Murmurs; No JVD, RRR Abdominal: NL Sounds; No Tenderness; No Distention Skin: - - Dressing to left LE clean, dry and intact Neurological: Alert and Oriented x 3, NL Muscle Strength and Tone Lines/Tubes/Other Access: Clean, Dry and Intact Peripheral IV - site benign Nutrition: Taking PO's Result Diagrams: 07/12/17 05:06 07/12/17 05:06 Assess/Plan/Problems-Billing Assessment: Mr. Suggs is a 72 yo M with a PMH of chronic B LE venous stasis who was admitted on 07/05/17 with bilateral lower extremity ulcers, L > R with concern for osteomyelitis. Patient is on IV Ceftriaxone s/p transmetatarsal amputation with Achilles lengthening. - Patient Problems (1) Streptococcal cellulitis Code(s): L03.90 - CELLULITIS, UNSPECIFIED; B95.5 - UNSP STREPTOCOCCUS [facility] Code(s): 793255443 Comment: - S/P TMA with achillies lengthening 07/09. Doing well. NWB. - Leukocytosis resolved, afebrile, did not meet sepsis criteria. - Group A Strep bacteremia with staph and strep per wound culture. - Has blisters, significant edema with ulcerations to both feet, L > R with concern for osteomyelitis. - Recent JENNY showing good arterial flow but has history of venous disease and chronic lower extremity wounds. - MRI showing cellulitis and myositis with possibility of osteo. - Wound care consult appreciated, plan for bacitracin and gauze. - Appreciate ID consult, plan for ceftriaxone Day 6/7, then clindamycin 300 mg po TID for 14 days (2) Hypertension SNOMED Code(s): 63501624 Comment: - SBP 120-150's - Continue atenolol home dose, and norvasc 5 mg po daily (3) Lower extremity edema Code(s): R60.0 - LOCALIZED EDEMA SNOMED Code(s): 989189806 Comment: - Continue furosemide in AM to avoid disrupting sleep, continue wrapping LE, keep elevated. (4) Peripheral neuropathy Code(s): G62.9 - POLYNEUROPATHY, UNSPECIFIED SNOMED Code(s): 443281310 Comment: - Unknown cause, likely from alcohol abuse. - Has previously been evaluated by laboratory testing and nerve conduction studies. - Continue pregabalin and amitriptyline. (5) Restless leg syndrome Comment: - Continue pramipexole. (6) Morbid obesity with BMI of 40.0-44.9, adult Code(s): E66.01 - MORBID (SEVERE) OBESITY DUE TO EXCESS CALORIES; Z68.41 - BODY MASS INDEX (BMI) 40.0-44.9, ADULT SNOMED Code(s): 507883525 Comment: - Dx noted (7) DVT prophylaxis Code(s): NNQ9648 - SNOMED Code(s): 874630529 Comment: - Heparin SQ (8) Full code status Code(s): Z78.9 - OTHER SPECIFIED HEALTH STATUS SNOMED Code(s): 600241786 Status and Disposition: Inpatient. Anticipate discharge to home after completion of IV antibiotics.
[2017-07-12] MEDS: oxyCODONE TAB* 5 MG TAB PO PRN ×2 (13:48→19:53)
[2017-07-12] MEDS: cefTRIAXone 2000 MG SYRINGE IVPB Q24H IVPB SCH ×2 (13:51)
[2017-07-12] MEDS: Amitriptyline TAB* 25 MG PO SCH (20:53)
[2017-07-12] MEDS: CMCS: Melatonin (NF) 3 MG TAB PO SCH (20:54)
[2017-07-12] MEDS: Atenolol TAB* 50 MG PO SCH (20:54)
[2017-07-13] MEDS: Heparin VIAL(*) 5000 UNITS/ML VIAL (FIVE THOUSAND) SUBCUT SCH ×2 (05:39→13:10)
[2017-07-13] MEDS: Omeprazole CAP* 20 MG PO SCH (05:41)
[2017-07-13] MEDS: Pramipexole TAB* 0.5 MG PO SCH ×2 (07:32→13:07)
[2017-07-13] MEDS: amLODIPine TAB* 5 MG PO SCH (07:33)
[2017-07-13] MEDS: Furosemide TAB* 20 MG PO SCH (07:34)
[2017-07-13] MEDS: Pregabalin CAP(*) 50 MG PO SCH ×2 (07:34→13:08)
[2017-07-13] MEDS: Docusate CAP* 100 MG PO SCH (07:34)
[2017-07-13] MEDS: Acetaminophen TAB* 325 MG PO PRN (07:38)
--- NOTE | 2017-07-13 10:32 | PN ---
Subjective Date of Service: 07/13/17 Interval History: Patient seen and examined at bedside. Denies fever, chills, shortness of breath , chest discomfort, N/V/D. Pt is anxious to get home. Family History: Unchanged from Admission Social History: Unchanged from Admission Past Medical History: Unchanged from Admission Objective Active Medications: Acetaminophen (Tylenol Tab*) 650 mg PO Q6H PRN Reason: FEVER/PAIN Amitriptyline HCl (Elavil Tab*) 25 mg PO BEDTIME [facility] Amlodipine Besylate (Norvasc Tab*) 5 mg PO DAILY [facility] Atenolol (Tenormin Tab*) 50 mg PO BEDTIME [facility] Bacitracin (Bacitracin Ointment*) 1 applic TOPICAL DAILY [facility] Docusate Sodium (Colace Cap*) 200 mg PO BID [facility] Furosemide (Lasix Tab*) 20 mg PO 0900 [facility] Heparin Sodium (Porcine) (Heparin Vial(*)) 5,000 units SUBCUT Q8HR [facility] Hydralazine HCl (Apresoline Iv*) 10 mg IV Q4H PRN Reason: Systolic >170 Ceftriaxone Sodium 2,000 mg/ (Sterile Water) 20 mls @ 40 mls/hr IVPB Q24H [facility] Melatonin (Melatonin (Nf)) 3 mg PO BEDTIME [facility] Omeprazole (Prilosec Cap*) 20 mg PO DAILY@0600 [facility] Ondansetron HCl (Zofran Inj*) 4 mg IV Q6H PRN Reason: NAUSEA Pramipexole Dihydrochloride (Mirapex Tab*) 0.25 mg PO TID [facility] Pregabalin (Lyrica Cap(*)) 50 mg PO TID [facility] Vital Signs - 8 hr 07/13/17 07/13/17 07/13/17 03:28 07:25 07:34 Temperature 97.5 F 97.8 F Pulse Rate 54 52 Respiratory 16 16 18 Rate Blood Pressure 141/65 141/54 (mmHg) O2 Sat by Pulse 96 94 Oximetry 07/13/17 07/13/17 07:47 10:04 Temperature Pulse Rate Respiratory 18 18 Rate Blood Pressure (mmHg) O2 Sat by Pulse 94 Oximetry Oxygen Devices in Use Now: None Appearance: NAD, laying in bed Ears/Nose/Mouth/Throat: Mucous Membranes Moist Respiratory: Symmetrical Chest Expansion and Respiratory Effort, Clear to Auscultation Cardiovascular: NL Sounds; No Murmurs; No JVD, RRR Abdominal: NL Sounds; No Tenderness; No Distention Skin: - - Dressing to left LE clean, dry and intact Neurological: Alert and Oriented x 3, NL Muscle Strength and Tone Lines/Tubes/Other Access: Clean, Dry and Intact Peripheral IV - site benign Nutrition: Taking PO's Result Diagrams: 07/12/17 05:06 07/12/17 05:06 Assess/Plan/Problems-Billing Assessment: Mr. Suggs is a 72 yo M with a PMH of chronic B LE venous stasis who was admitted on 07/05/17 with bilateral lower extremity ulcers, L > R with concern for osteomyelitis. Patient is on IV Ceftriaxone s/p transmetatarsal amputation with Achilles lengthening. - Patient Problems (1) Streptococcal cellulitis Code(s): L03.90 - CELLULITIS, UNSPECIFIED; B95.5 - UNSP STREPTOCOCCUS THE CAUSE OF DISEASES CLASSD [facility] SNOMED Code(s): 477041931 Comment: - S/P TMA with achillies lengthening 07/09. Doing well. NWB. - Leukocytosis resolved, afebrile, did not meet sepsis criteria. - Group A Strep bacteremia with staph and strep per wound culture. - Has blisters, significant edema with ulcerations to both feet, L > R with concern for osteomyelitis. - Recent JENNY showing good arterial flow but has history of venous disease and chronic lower extremity wounds. - MRI showing cellulitis and myositis with possibility of osteo. - Wound care consult appreciated, plan for bacitracin and gauze. - Appreciate ID consult, plan for ceftriaxone Day 7/, then clindamycin 300 mg po TID for 14 days (2) Hypertension SNOMED Code(s): 60141562 Comment: - SBP 130-160's - Continue atenolol home dose, and norvasc 5 mg po daily (3) Lower extremity edema Code(s): R60.0 - LOCALIZED EDEMA SNOMED Code(s): 180440240 Comment: - Continue furosemide in AM to avoid disrupting sleep, continue wrapping LE, keep elevated. (4) Peripheral neuropathy Code(s): G62.9 - POLYNEUROPATHY, UNSPECIFIED SNOMED Code(s): 429372546 Comment: - Unknown cause, likely from alcohol abuse. - Has previously been evaluated by laboratory testing and nerve conduction studies. - Continue pregabalin and amitriptyline. (5) Restless leg syndrome Comment: - Continue pramipexole. (6) Morbid obesity with BMI of 40.0-44.9, adult Code(s): E66.01 - MORBID (SEVERE) OBESITY DUE TO EXCESS CALORIES; Z68.41 - BODY MASS INDEX (BMI) 40.0-44.9, ADULT SNOMED Code(s): 677498116 Comment: - Dx noted (7) DVT prophylaxis Code(s): XSL4352 - SNOMED Code(s): 958828401 Comment: - Heparin SQ, change to ASA at discharge (8) Full code status Code(s): Z78.9 - OTHER SPECIFIED HEALTH STATUS SNOMED Code(s): 023198139 Status and Disposition: Inpatient. Stable for discharge to home later today, if ok with orthopedics.
--- NOTE | 2017-07-13 11:16 | PN ---
Progress Note - Progress Note Date of Service: 07/13/17 SOAP: Subjective: 72 y/o male s/p L foot transmetatarsal amp 07/09. Patient doing well, working well with PT, has family members at home to help. VSS, afebrile overnight. Objective: General- Well appearing, NAD, AO. working bedside with PT. MSK- Dressing intact, no drainage, odor noted. Vital Signs Temp 97.8 F 07/13/17 07:25 Pulse 52 07/13/17 07:25 Resp 18 07/13/17 10:04 BP 141/54 07/13/17 07:25 Pulse Ox 94 07/13/17 07:47 Intake & Output 07/12/17 07/13/17 07/13/17 18:59 06:59 18:59 Intake Total 2410 240 Output Total 250 Balance 2160 240 Intake: IV Fluids 30 NS (0.9%) 30 IVPB 20 ABX - CEFTRIAXONE 20 Oral 2360 240 Output: Urine 250 Other: # Bowel Movements 2 Estimated Stool Amount Medium # Voids 1 Assessment: Stable 72 y/o male s/p L foot transmetatarsal amp 07/09. Plan: - DVT prophylaxis- ASA 325mg daily - Continue PT/ OT at home - Follow up with Dr. Adan within 10-14 days - H&H - stable - post-op IV ABX completed, ID following Acetaminophen (Tylenol Tab*) 650 mg PO Q6H PRN PRN Reason: FEVER/PAIN Last Admin: 07/13/17 07:38 Dose: 650 mg Amitriptyline HCl (Elavil Tab*) 25 mg PO BEDTIME [facility] Last Admin: 07/12/17 20:53 Dose: 25 mg Amlodipine Besylate (Norvasc Tab*) 5 mg PO DAILY [facility] Last Admin: 07/13/17 07:33 Dose: 5 mg Atenolol (Tenormin Tab*) 50 mg PO BEDTIME [facility] Last Admin: 07/12/17 20:54 Dose: 50 mg Bacitracin (Bacitracin Ointment*) 1 applic TOPICAL DAILY [facility] Last Admin: 07/12/17 08:38 Dose: Not Given Docusate Sodium (Colace Cap*) 200 mg PO BID [facility] Last Admin: 07/13/17 07:34 Dose: Not Given Furosemide (Lasix Tab*) 20 mg PO 0900 [facility] Last Admin: 07/13/17 07:34 Dose: Not Given Heparin Sodium (Porcine) (Heparin Vial(*)) 5,000 units SUBCUT Q8HR [facility] Last Admin: 07/13/17 05:39 Dose: 5,000 units Hydralazine HCl (Apresoline Iv*) 10 mg IV Q4H PRN PRN Reason: Systolic >170 Last Admin: 07/09/17 00:29 Dose: 10 mg Ceftriaxone Sodium 2,000 mg/ (Sterile Water) 20 mls @ 40 mls/hr IVPB Q24H [facility] Last Admin: 07/12/17 13:51 Dose: 40 mls/hr Melatonin (Melatonin (Nf)) 3 mg PO BEDTIME [facility] Last Admin: 07/12/17 20:54 Dose: 3 mg Omeprazole (Prilosec Cap*) 20 mg PO DAILY@0600 [facility] Last Admin: 07/13/17 05:41 Dose: Not Given Ondansetron HCl (Zofran Inj*) 4 mg IV Q6H PRN PRN Reason: NAUSEA Pramipexole Dihydrochloride (Mirapex Tab*) 0.25 mg PO TID [facility] Last Admin: 07/13/17 07:32 Dose: 0.25 mg Pregabalin (Lyrica Cap(*)) 50 mg PO TID [facility] Last Admin: 07/13/17 07:34 Dose: 50 mg
[2017-07-13] MEDS: cefTRIAXone 2000 MG SYRINGE IVPB Q24H IVPB SCH ×2 (13:12)
[2017-07-13] MEDS: Bacitracin OINTMENT* 0.5% 0.5 oz TUBE TOPICAL SCH (13:19)
[2017-07-13 16:14] VITALS: BP 165/64
--- NOTE | 2017-07-14 12:49 | DS ---
CC: Waldemar Jenkins MD; Isidro Chan MD; Aldo Mata MD * DISCHARGE SUMMARY: DATE OF ADMISSION: 07/05/17 DATE OF DISCHARGE: 07/13/17 ATTENDING PHYSICIAN: Serafin Peralta MD * (dictated by Kelvin Richardson NP). PRIMARY CARE PROVIDER: Waldemar Jenkins MD PRIMARY DIAGNOSES: 1. Bilateral lower extremity cellulitis with necrotizing cellulitis of the left lower extremity. 2. Status post left foot transmetatarsal amputation and left Achilles tendon lengthening on 07/09/17. 3. Acute kidney injury, resolved. SECONDARY DIAGNOSES: 1. Hypertension. 2. Lower extremity edema. 3. Peripheral neuropathy. 4. Restless leg syndrome. 5. Morbid obesity with BMI of 43. CONSULTATIONS WHILE IN THE HOSPITAL: 1. Aldo Mata MD, with Infectious Disease. 2. Isidro Chan MD, with Orthopedic Surgery. PROCEDURES WHILE IN THE HOSPITAL: Status post left foot metatarsal amputation and left Achilles tendon lengthening on 07/09/[address] Isidro Chan. STUDIES WHILE IN THE HOSPITAL: Left lower extremity MRI on 07/06/17. Radiologist impression: Diffuse soft tissue swelling suggestive of cellulitis and myositis. Small foci of edema, signal intensity in the third proximal and middle phalanges likely secondary to arthritic changes with likely osteomyelitis. DISCHARGE MEDICATIONS: New home medications: 1. Clindamycin 300 mg oral 3 times daily for 2 weeks. 2. Aspirin 325 mg daily. 3. Amlodipine 5 mg oral daily. 4. Colace 200 mg oral twice daily. 5. Acetaminophen 650 mg oral every 6 hours as needed for fever or pain. Continue home medications: 1. Tramadol 50 mg oral every 6 hours as needed for pain. 2. Amitriptyline 25 mg oral daily at bedtime. 3. Lyrica 1 tablet oral 3 times daily. 4. Atenolol 50 mg oral daily at bedtime. 5. Mirapex 0.25 mg oral 3 times daily. Changed home medication: 1. Furosemide changed from 20 mg oral 4 times daily as needed to 20 mg oral daily. HISTORY OF PRESENT ILLNESS/HOSPITAL COURSE: Mr. Suggs is a 72-year-old male with past medical history significant for chronic bilateral lower extremity venous stasis, restless leg syndrome, peripheral neuropathy, who had been having flu-like symptoms consisting of arthralgia, headache, dry cough, profuse sweating and then he noted blood on his right sock after inspecting his feet which had been painful. He noticed a ruptured blister on the dorsum of his left foot at the base of his second and third toes. Similarly he found a ruptured blister on the medial aspect of his right foot at the base of his first toe. The patient had chronic venous stasis and wraps his lower extremities every other day. He had established with a filling station attendant prior to this occurring. Due to his symptoms, he presented to the emergency room for further evaluation. While in the emergency room, he had labs significant for leukocytosis with the white blood cell count of 18,000 and elevated creatinine of 1.25, and the hospitalists were asked to evaluate him for admission. While in the hospital, the patient was seen in consultation by Dr. Aldo Mata. He had an MRI of his left leg showing cellulitis and myositis. He had wound care consult recommending bacitracin and gauze to any blistered areas. He was seen in consultation by Dr. Isidro Chan with Orthopedic Surgery , who recommended a left transmetatarsal amputation with Achilles tendon, which was performed on 07/09/17. The patient has been doing well postoperatively. He has received a 7-day course of IV ceftriaxone. The patient was noted to be hypertensive during his stay. He was continued on his home atenolol and had Norvasc 5 mg daily ordered. For his lower extremity edema, his furosemide was changed to daily dosing in the morning. He was encouraged to keep his legs wrapped and elevated. During his stay, he has been afebrile. His leukocytosis resolved. His acute kidney injury resolved. His CRP was improving. He was able to ambulate with nonweightbearing on his left foot by turning and pivoting on his right leg. He was found to have group A bacteremia in addition to group A strep in addition to staphylococcus aureus growing from his left foot culture. Mr. Suggs is stable for discharge today. Vital signs are as follows: Temperature 97.5, heart rate 55, respiratory rate 16, O2 saturation 97% on room air, blood pressure 166/72. DISCHARGE PLAN: Mr. Suggs will be discharged home. Activity as tolerated. He should be on a consistent carbohydrate diet in regards to his left lower extremity cellulitis. He will be continued on clindamycin 300 mg oral 3 times daily for 14 more days. He has been instructed to call Dr. Mata's office to be seen in the next 1 to 2 weeks for followup. The patient should call Dr. Chan's office for followup appointment between 07/16/17 and 07/22/17 for a splint and dressing change and wound evaluation. The patient has been instructed to keep his splint clean and dry on his left foot. Dr. Jenkins's office will call the patient with a followup appointment. In regards to his hypertension, he has been continued on his home atenolol and started on amlodipine. I question if some of the elevated blood pressures are due to ill fitting cuff while in the hospital. Please continue to monitor his blood pressures and further adjust his antihypertensives accordingly. The patient will be on aspirin 325 mg oral daily for DVT prophylaxis for at least a month per Orthopedic Surgery. The patient has been asked to return to the emergency room for any chest pain or shortness of breath. Nonweightbearing to the left foot with activity. This is a summarized report of a complex medical history and hospital stay. For further details, please see the entire medical record. Time for this discharge was approximately 50 minutes, greater than half of that was spent with the patient discussing discharge plans and instructions. CONDITION ON DISCHARGE: Stable. KELVIN HAY NP [id number]/[facility] #: [id number] BARBI
== END 2017-07-13 15:50 | disposition home or self-care (01) | DRG 580 ==
LOC: ED 00:48 → MED 04:05
PROVIDERS: ADMIT Hospitalist; ATTEND Internal Medicine
PROC: 0Y6N0ZB Detachment at Left Foot, Partial 2nd Ray, Open Approach (ICD-10-PCS; 2017-07-09)
PROC: 0Y6N0ZC Detachment at Left Foot, Partial 3rd Ray, Open Approach (ICD-10-PCS; 2017-07-09)
PROC: 0Y6N0ZD Detachment at Left Foot, Partial 4th Ray, Open Approach (ICD-10-PCS; 2017-07-09)
PROC: 0Y6N0ZF Detachment at Left Foot, Partial 5th Ray, Open Approach (ICD-10-PCS; 2017-07-09)
PROC: 0L8 Tendons, Division (ICD-10-PCS; 2017-07-09)
PROC: 0Y6N0Z9 Detachment at Left Foot, Partial 1st Ray, Open Approach (ICD-10-PCS; principal; 2017-07-09 09:45)
DX: L03.116 Cellulitis of left lower limb (principal); Z68.41 Body mass index [BMI] 40.0-44.9, adult; N17.9 Acute kidney failure, unspecified; G62.9 Polyneuropathy, unspecified; E66.01 Morbid (severe) obesity due to excess calories; L97.519 Non-pressure chronic ulcer of other part of right foot with unspecified severity; M86.8X7 Other osteomyelitis, ankle and foot; I83.015 Varicose veins of right lower extremity with ulcer other part of foot; B95.0 Streptococcus, group A, as the cause of diseases classified elsewhere; L03.115 Cellulitis of right lower limb; I83.025 Varicose veins of left lower extremity with ulcer other part of foot; L97.529 Non-pressure chronic ulcer of other part of left foot with unspecified severity; M67.02 Short Achilles tendon (acquired), left ankle; M60.9 Myositis, unspecified; Z96.653 Presence of artificial knee joint, bilateral; Z88.0 Allergy status to penicillin; R60.0 Localized edema; G25.81 Restless legs syndrome; I10 Essential (primary) hypertension; Z79.899 Other long term (current) drug therapy; Z91.030 Bee allergy status
CPT/HCPCS: 36415; 80048; 80053; 80074; 81003; 81015; 83605; 83735; 85025; 85610; 85730; 86140; 86703; 87040; 87070; 87077; 87086; 87186; 87205; 87640; 87641; 88307; 88311; 93005; 99284; A9270-GY; G8978-GP-CH; G8978-GP-CK; G8979-GP-CH; G8979-GP-CI; J0360; J0692; J0696; J1644; J1940; J2543; J2704; J3010; J3370; J3490

== ENCOUNTER 2018-08-15 22:41 | Emergency (ER) | payer MEDICARE, OTHER ==
--- OUTSIDE RECORDS SUMMARY | 2018-08-15 23:00 | XMS REPORT | Continuity of Care Document ---
:1945 External Reference #:[id number] Author Name Sravani Sargent O.D. Address [address] [place] [id number] Care Team Providers Name Role Phone Waldemar Jenkins M.D. Primary Care Physician Unavailable Payers Date Identification Numbers Payment Provider Subscriber Policy Number: [id number] Medicare - NGS Mark Suggs PayID: [id number] [place] [address] Policy Number: [id number] [employer] Ppo/Pos/Epo/Nap Mark Suggs Group Number: [id number] [address] PayID: [id number] [place] [address] Advance Directives Description No Information Available Problems Active Problems Provider Date Sleep apnea Onset: Note: Central Restless legs Onset: Chronic back pain Onset: Other secondary cataract, left eye Sravani Sargent O.D. Onset: 07/23/2017 Presence of intraocular lens Sravani Sargent O.D. Onset: 07/20/2015 Retinal lattice degeneration Sravani Sargent O.D. Onset: 07/20/2015 Vitreous degeneration Sravani Sargent O.D. 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 ETOH Use Denies alcohol use Tobacco Use Start: Unknown Patient has never smoked Recreational Drug Use Denies Drug Use Smoking Status Reviewed: 07/23/18 Patient has never smoked Allergies, Adverse Reactions, Alerts Active Allergies Reaction Severity Comments Date NKDA 07/23/2017 Bee Stings 07/13/2015 Medications Active Medications SIG Qnty Indications Ordering Date Provider Ropinirole HCL Take 1 Tablet Unknown 1mg Tablets By Mouth 5 Times A Day Tramadol HCL Take 1 Tablet Unknown 50mg Tablets By Mouth Every 4 Hours as Needed -- Maximum Daily Dose Of 6 Per Day Hydrochlorothiazide Take 1 Tablet Unknown 25mg Tablets By Mouth Every Day Losartan Potassium Take 1 Tablet Unknown 50mg Tablets By Mouth Two Times Daily Hydrocodone-Acetaminophen Take One Tablet Unknown 5-325mg By Mouth Every Tablets 6 Hours as Needed For Pain - Maximum Daily Dose Of4 Per Day Pramipexole Dihydrochloride Take 3 Tablets Unknown 0.25mg By Mouth Every Tablets Evening - Maximum Daily Dose Of 3 Per Da Amlodipine Besylate Take 1 Tablet Unknown 5mg Tablets By Mouth Every Day Amitriptyline HCL Take 1 Tablet Unknown 25mg Tablets By Mouth AT Bedtime Neurontin tapering down Unknown 300mg Capsules to be replaced Ultram every day Unknown 50mg Tablets History Medications Visine Tears as needed Sravani Sargent, 07/18/2015 - 0.2-0.2-1% O.D. 07/22/2015 Solution Requip every day Unknown - 5mg Tablets 07/22/2017 Amitriptyline HCL every day Unknown - 10mg 07/22/2015 Tablets Lyrica every day Unknown - 50mg Capsules 07/22/2018 Atenolol 1 tab po daily Unknown - Tablets 07/22/2017 Furosemide Take 1 Tablet By Unknown - 20mg Tablets Mouth Every 07/22/2018 Morning For Fluid Clindamycin HCL Take 1 Capsule By Unknown - 300mg Mouth Three Times 07/22/2018 Capsules Daily Immunizations Description No Information Available Vital Signs Description No Information Available Results Description No Information Available Procedures Date Code Description Status 07/23/2017 37999 Est Patient Comprehensive Exam Completed 07/21/2016 34468 Est Patient Comprehensive Exam Completed 07/20/2015 35774 Est Patient Comprehensive Exam Completed 07/20/2014 14568 Est Patient Comprehensive Exam Completed 07/20/2013 48111 Est Patient Comprehensive Exam Completed 07/19/2012 95704 Est Patient Comprehensive Exam Completed 08/04/2011 30808 Est Patient Comprehensive Exam Completed 06/20/2011 56301 Est Patient Comprehensive Exam Completed 09/19/2010 75342 Est Patient Comprehensive Exam Completed 05/03/2010 38296 Scanning Computerized Opthalmic Diagnostic Posterior Seg Completed Retina 09/18/2009 14584 Est Patient Comprehensive Exam Completed 09/15/2008 24329 Est Patient Comprehensive Exam Completed 03/16/2008 28517 Est Patient Intermediate Exam Completed 09/09/2007 76579 Repair Detached Retina, Photocoagulation Completed 09/07/2007 87935 Est Patient Comprehensive Exam Completed 09/15/2005 24909 Est Patient Intermediate Exam Completed 08/21/2004 24582 Extracapsular Cataract Extraction W/Intraocular Lens Completed 08/08/2004 43666 Ophthalmic Biometry Completed 07/30/2004 86894 Unlisted Procedure, Ophthalmological Completed 07/30/2004 37333 Ophthalmic Biometry Completed 06/09/2004 29047 Extracapsular Cataract Extraction W/Intraocular Lens Completed 06/07/2004 70082 Rescheduled Appointment Completed Encounters Type Date Location Provider Dx Diagnosis Office Visit 07/18/2011 Sravani Kaye 379.24 Other Vitreous 9:00a , susan Sargent O.D. Opacities / Floater Office Visit 05/10/2010 Sravani Kaye 373.12 Meibomitis 3:20p susan CORTEZ O.D. Office Visit 05/03/2010 Sravani Kaye 373.12 Meibomitis 3:10p susan CORTEZ O.D. Office Visit 07/30/2004 Waldemar Kaye, 366.16 Senile Nuclear 1:00p susan CORTEZ M.D. Sclerosis / Cataract Office Visit 07/02/2004 Waldemar Kaye, 366.04 Cataract Nuclear 1:30p MD susan Urbina. Plan of Treatment 07/23/2018 - Sravani Sargent O.D.H35.413 Lattice degeneration of retina, bilateralFollow up:1 Year Follow Up You can expect to have your eyes dilated at your next visit. If Dr. Sargent orders any additional testing, it may require extra time. We recommend that you bring sunglasses, as dilation drops often make you light sensitive until they wear off. We always recommend you bring someone to drive you home if you are uncomfortable driving with your eyes dilated. If you have any questions before your next visit, feel free to call our office at .M26.411 Other secondary cataract, left eyeComments: There is clouding in the sac that holds your artificial lens in your left eye. When your vision bothers you, we will schedule an appointment with Dr. Tavarez or Dr. Root to evaluate if a Yag Capsulotomy laser treatment can improve your vision.Z96.1 Presence of intraocular lensComments:The artificial lens implants in both eyes appear to be stable at this time.
[2018-08-16 00:52] VITALS: BP 111/62
--- NOTE | 2018-08-16 00:56 | ED ---
Lower Extremity - HPI Summary HPI Summary: A 73 y/o M presents to ED with c/o unroofed blister on sole of his L foot noticed today. He's unsure when it happened, he has peripheral neuropathy and did not feel the blister nor any pain. He swabbed the area with a lot of rubbing alcohol. Denies fever, recent illness. He lost the toes on his L foot due to infection approx 1 year ago. Denies DM. He sees Dr. Jenkins, PCP. - History of Current Complaint Chief Complaint: EDExtremityLower Stated Complaint: "LEFT FOOT INJURY PER PT" Time Seen by Provider: 08/16/18 00:48 Hx Obtained From: Patient Mechanism Of Injury: Unknown Onset/Duration: Still Present Severity Initially: Mild Severity Currently: Mild Pain Intensity: 3 Pain Scale Used: 0-10 Numeric Timing: Constant Location: Is Discrete @ - L sole Associated Signs And Symptoms: Negative: Fever - Allergies/Home Medications Allergies/Adverse Reactions: Allergies Allergy/AdvReac Type Severity Reaction Status Date / Time bee venom protein (honey bee) Allergy Severe Anaphylatic Verified 08/15/18 22:48 Shock codeine AdvReac Mild Itching Verified 08/15/18 22:48 Penicillins AdvReac Mild GI Upset Verified 08/15/18 22:48 PMH/Surg Hx/FS Hx/Imm Hx Previously Healthy: No Endocrine/Hematology History: Denies: Hx Diabetes Cardiovascular History: Reports: Hx Hypertension - ON MEDICATION FOR, Other Cardiovascular Problems/Disorders - PAD Denies: Hx Congestive Heart Failure, Hx Pacemaker/ICD Respiratory History: Reports: Hx Sleep Apnea Denies: Hx Asthma History: Reports: Hx Kidney Stones - HX OF Denies: Hx Renal Disease Musculoskeletal History: Reports: Hx Arthritis, Hx Back Problems, Hx Orthopedic Injury - BILATERAL KNE REPLACEMENT, Other Musculoskeletal History - SPINAL STENOSIS- SURGERY 2009 Sensory History: Reports: Hx Cataracts, Hx Contacts or Glasses - READING Denies: Hx Hearing Aid Opthamlomology History: Reports: Hx Cataracts, Hx Contacts or Glasses - READING Neurological History: Reports: Other Neuro Impairments/Disorders - RESTLESS LEG SYNDROME, neuropathy Psychiatric History: Denies: Hx Panic Disorder - Surgical History Surgery Procedure, Year, and Place: LEFT TKR- [facility];. RIGHT TKR [facility] 03/2014; . BILAT CATARACTS 2004- [facility];. 3 LEVEL LUMBAR LAMINECTOMY 2010 [facility];. RIGHT SHOULDER SURGERY X3 [place] [facility] [place];. RIGHT KNEE SCOPING [facility]-2000;. LEFT FOOT SURGERY X 2;. BILATERAL CARPAL TUNNEL RELEASE;. TONSILLECTOMY; Hx Anesthesia Reactions: No - STRONG TOLERANCE TO PAIN MEDICATIONS AND ANESTHESIA" Infectious Disease History: Yes Infectious Disease History: Reports: Hx of Known/Suspected MRSA - OLD WOUND ON BUTTOCK 2012 Denies: Traveled Outside the [place] in Last 30 Days - Family History Known Family History: Positive: Diabetes - Social History Occupation: Retired Lives: With Family Alcohol Use: None Alcohol Amount: RECOVERING ALCOHOLIC X 28 YEARS Substance Use Type: Reports: None Substance Use Comment - Amount & Last Used: MARIJUANA USE IN THE PAST- STOPPED IN 1979 Hx Tobacco Use: No Smoking Status (MU): Never Smoked Tobacco Amount Used/How Often: MARIJUANNA SMOKER X 14 YEARS Have You Smoked in the Last Year: No Review of Systems Negative: Fever Skin: Other - pos: broken blister on L sole All Other Systems Reviewed And Are Negative: Yes Physical Exam - Summary Physical Exam Summary: Appearance: Well-appearing, Well-nourished, lying in bed comfortable Skin: Warm, dry, no obvious rash. Pt has a quarter-sized superficial ulcer on L sole that looks to be an unroofed blister without associated cellulitis Eyes: sclera anicteric, no conjunctival pallor ENT: mucous membranes moist Neck: deferred Respiratory: No signs of respiratory distress Cardiovascular: Appears well perfused, pulses are nml Abdomen: deferred Musculoskeletal: Moving all 4 extremities without obvious discomfort Neurological: Awake and alert, mentation is normal, speech is fluent and appropriate Psychiatric: affect is normal, does not appear anxious or depressed Triage Information Reviewed: Yes Vital Signs On Initial Exam: Initial Vitals Temp Pulse Resp BP Pulse Ox 98.0 F 64 16 155/80 96 08/15/18 22:47 08/15/18 22:47 08/15/18 22:47 08/15/18 22:47 08/15/18 22:47 Vital Signs Reviewed: Yes Diagnostics - Vital Signs Vital Signs Temp Pulse Resp BP Pulse Ox 08/15/18 22:47 98.0 F 64 16 155/80 96 - Laboratory Lab Statement: Any lab studies that have been ordered have been reviewed, and results considered in the medical decision making process. Lower Extremity Course/Dx - Course Course Of Treatment: Pt is a 73 y/o M presenting with a quarter-sized superficial ulcer on L sole that looks to be an unroofed blister without associated cellulitis. It was noticed today, but unknown when it occurred. Pt has peripheral neuropathy. He lost toes on his L foot due to infection approx 1 [address] He sees Dr. Jenkins, PCP. Will discharge patient home. - Diagnoses Provider Diagnoses: Foot ulcer, limited to breakdown of skin Discharge - Sign-Out/Discharge Documenting (check all that apply): Patient Departure - DC Patient Received Moderate/Deep Sedation with Procedure: No - Discharge Plan Condition: Good Disposition: HOME Patient Education Materials: Acute Wound Care (ED) Referrals: Waldemar Jenkins MD [Primary Care Provider] - 3 Days Additional Instructions: This wound does not look infected right now, it is a simple superficial ulcer left over from a blister. To prevent infection you will need to practice meticulous wound care, cleaning and redressing the area twice daily and applying antibiotic cream or ointment before dressing it again. Dr Jenkins should take a look at it in a few days to make sure it is healing well and not getting infected. Taking pictures daily is a good way to keep track of healing. - Billing Disposition and Condition Condition: GOOD Disposition: Home - Attestation Statements Document Initiated by Giovana: Yes Documenting Scribe: Carli Raymond Provider For Whom Giovana is Documenting (Include Credential): Dr. Gary Helms MD Scribe Attestation: I, brett Garciaibed for Dr. Gary Helms MD on 08/16/18 at 0249. Scribe Documentation Reviewed: Yes Provider Attestation: The documentation as recorded by the Carli brothers accurately reflects the service I personally performed and the decisions made by me, Dr. Gary Helms MD Status of Scribe Document: Viewed
== END 2018-08-16 01:15 | disposition home or self-care (01) ==
LOC: ED 22:41
DX: L97.521 Non-pressure chronic ulcer of other part of left foot limited to breakdown of skin (principal); I10 Essential (primary) hypertension; I73.9 Peripheral vascular disease, unspecified; M19.90 Unspecified osteoarthritis, unspecified site; G62.9 Polyneuropathy, unspecified; Z88.5 Allergy status to narcotic agent; Z88.0 Allergy status to penicillin; Z79.899 Other long term (current) drug therapy
CPT/HCPCS: 99282

== ENCOUNTER 2019-08-27 04:23 | Inpatient (IN) ==
[2019-08-27] MEDS ORDERED: metroNIDAZOLE IV 500 MG/100ML 500 MG/100 ML BAG IVPB ONE (05:25)
[2019-08-27] MEDS ORDERED: cefTRIAXone ADVAN VIAL 1 GM in NS 0.9% 50 ML 50 ML IVPB ONE (05:28)
[2019-08-27 05:36] LABS: Hematocrit 35 % (42-52); Hemoglobin 11.8 g/dL (14.0-18.0); Mean Corpuscular HGB Conc 34 g/dL (31-36); Mean Corpuscular Hemoglobin 29 pg (27-31); Mean Corpuscular Volume 86 fL (80-94); Mean Platelet Volume 8.5 fL (7.4-10.4); Platelet Count 190 10^3/uL (150-450); Red Blood Count 4.03 10^6 /uL (4.18-5.48); Red Cell Distribution Width 15 % (10-15); White Blood Count 14.5 10^3/uL (3.5-10.8)
[2019-08-27 05:54] LABS: ALT 27 U/L (7-52); AST 43 U/L (13-39); Albumin 3.5 g/dL (3.2-5.2); Albumin/Globulin Ratio 0.9 (1-3); Alkaline Phosphatase 77 U/L (34-104); Anion Gap 8 mmol/L (2-11); BUN/Creatinine Ratio 22.5 (8-20); Blood Urea Nitrogen 40 mg/dL (6-24); C Reactive Protein 257.26 mg/L (<8.01); CO2 Carbon Dioxide 26 mmol/L (22-32); Calcium 8.2 mg/dL (8.6-10.3); Chloride 100 mmol/L (101-111); EGFR African American 45.7 (>60); EGFR Non-African American 37.8 (>60); Globulin 3.7 g/dL (2-4); Glucose 109 mg/dL (70-100); Sodium 134 mmol/L (135-145); Total Protein 7.2 g/dL (6.4-8.9)
[2019-08-27 05:59] LABS: Troponin I 2.08 ng/mL (<0.03)
[2019-08-27 06:15] LABS: Urine Appearance Cloudy; Urine Bilirubin Negative (Negative); Urine Blood 2+ (Negative); Urine Color Yellow; Urine Glucose Negative (Negative); Urine Ketones Negative (Negative); Urine Nitrite Negative (Negative); Urine Protein 2+(100 mg/dL) (Negative); Urine Specific Gravity 1.024 (1.010-1.030); Urine Urobilinogen Negative (Negative)
[2019-08-27 06:17] LABS: ABS Basophils 0.1 10^3/ul (0-0.2); ABS Eosinophils 0.4 10^3/ul (0-0.6); ABS Lymphocytes 2.2 10^3/ul (1.0-4.8); ABS Monocytes 1.6 10^3/ul (0-0.8); Eosinophil % 2.6 %; Lymphocyte % 15.2 %; Nucleated Red Blood Cells % 0.1
[2019-08-27 06:19] LABS: INR 1.31 (0.82-1.09); Urine Bacteria Absent (Absent); Urine Red Blood Cell 2+(6-10/hpf) (Absent); Urine White Blood Cell Trace(0-5/hpf) (Absent)
[2019-08-27] MEDS ORDERED: Al Hydrox/Mg Hydrox/Simet LIQ 30 ML UDC PO PRN (06:27)
[2019-08-27] MEDS ORDERED: Ondansetron 4 mg VIAL 2 MG/ML 2 ml VIAL IV PRN (06:27)
[2019-08-27] MEDS: Lactated Ringers 1000 ml BAG 2,000 ML IV ONE ×2 (06:56→07:07)
[2019-08-27] MEDS ORDERED: Vancomycin 2,000 MG in NS 0.9% 250 ml 250 ML IVPB SCH (07:00)
[2019-08-27] MEDS ORDERED: Vancomycin 2000 MG X 1 dose, then per Pharmacy PROTOCOL IVPB ONE (07:00)
[2019-08-27] MEDS ORDERED: Lactated Ringers 1000 ml BAG 1,000 ML IV SCH (07:00)
[2019-08-27] MEDS ORDERED: Vancomycin per Pharmacy 1 EA NOTE FOLLOW UP SCH (07:00)
[2019-08-27 10:21] LABS: Troponin I 2.26 ng/mL (<0.03)
[2019-08-27] MEDS: Heparin 5000 UNITS/ML 1 mL VIAL SUBCUT SCH ×2 (15:00→21:05)
[2019-08-27] MEDS: metroNIDAZOLE IV 500 MG/100ML 500 MG/100 ML BAG IVPB SCH (15:16)
[2019-08-27 15:23] LABS: Troponin I 1.77 ng/mL (<0.03)
[2019-08-27] MEDS ORDERED: Cefepime 2 GM in Dextrose 2 GM/50 ML BAG IV SCH (17:00)
[2019-08-27] MEDS: Cefepime 2 GM in NS 0.9% 50 ML 50 ML IVPB SCH (18:36)
[2019-08-27] MEDS: Vancomycin 1,000 MG in NS 0.9% 250 ml 250 ML IV SCH (21:05)
[2019-08-28] MEDS: metroNIDAZOLE IV 500 MG/100ML 500 MG/100 ML BAG IVPB SCH ×3 (00:07→13:51)
[2019-08-28] MEDS: HYDROcodone/ACETAMIN 5/325 mg TAB PO PRN ×2 (04:44→16:26)
[2019-08-28] MEDS: Cefepime 2 GM in NS 0.9% 50 ML 50 ML IVPB SCH ×2 (04:44→18:53)
[2019-08-28 04:53] LABS: ABS Basophils 0.1 10^3/ul (0-0.2); ABS Eosinophils 0.4 10^3/ul (0-0.6); Eosinophil % 4.1 %; Hematocrit 33 % (42-52); Hemoglobin 11.1 g/dL (14.0-18.0); Lymphocyte % 21.8 %; Mean Corpuscular HGB Conc 34 g/dL (31-36); Mean Corpuscular Hemoglobin 29 pg (27-31); Mean Corpuscular Volume 87 fL (80-94); Mean Platelet Volume 8.8 fL (7.4-10.4); Nucleated Red Blood Cells % 0.1; Platelet Count 162 10^3/uL (150-450); Red Blood Count 3.78 10^6 /uL (4.18-5.48); Red Cell Distribution Width 15 % (10-15); White Blood Count 9.2 10^3/uL (3.5-10.8)
[2019-08-28 05:01] LABS: Albumin 3.1 g/dL (3.2-5.2); Albumin/Globulin Ratio 0.9 (1-3); BUN/Creatinine Ratio 22.1 (8-20); Calcium 7.8 mg/dL (8.6-10.3); EGFR African American 65.1 (>60); EGFR Non-African American 53.8 (>60); Globulin 3.4 g/dL (2-4); Potassium 4.1 mmol/L (3.5-5.0); Total Bilirubin 0.4 mg/dL (0.2-1.0); Total Protein 6.5 g/dL (6.4-8.9)
[2019-08-28] MEDS: Heparin 5000 UNITS/ML 1 mL VIAL SUBCUT SCH ×3 (05:52→21:12)
[2019-08-28] MEDS: Vancomycin 1,000 MG in NS 0.9% 250 ml 250 ML IV SCH ×2 (07:36→21:09)
[2019-08-28] MEDS ORDERED: Vancomycin Trough Check NOTE FOLLOW UP ONE (19:30)
[2019-08-29] MEDS: Heparin 5000 UNITS/ML 1 mL VIAL SUBCUT SCH ×3 (05:27→20:54)
[2019-08-29] MEDS: Cefepime 2 GM in NS 0.9% 50 ML 50 ML IVPB SCH (05:28)
[2019-08-29 07:27] LABS: ABS Basophils 0.1 10^3/ul (0-0.2); ABS Eosinophils 0.4 10^3/ul (0-0.6); ABS Lymphocytes 1.9 10^3/ul (1.0-4.8); ABS Monocytes 1.3 10^3/ul (0-0.8); Eosinophil % 3.5 %; Hematocrit 34 % (42-52); Hemoglobin 11.4 g/dL (14.0-18.0); Lymphocyte % 16.5 %; Mean Corpuscular HGB Conc 34 g/dL (31-36); Mean Corpuscular Hemoglobin 29 pg (27-31); Mean Corpuscular Volume 86 fL (80-94); Mean Platelet Volume 8.5 fL (7.4-10.4); Platelet Count 207 10^3/uL (150-450); Red Cell Distribution Width 15 % (10-15); White Blood Count 11.7 10^3/uL (3.5-10.8)
[2019-08-29 07:50] LABS: BUN/Creatinine Ratio 16.5 (8-20); EGFR African American 80.5 (>60); EGFR Non-African American 66.5 (>60); Potassium 4.4 mmol/L (3.5-5.0)
[2019-08-29] MEDS: Vancomycin 1,000 MG in NS 0.9% 250 ml 250 ML IV SCH (08:16)
[2019-08-29 09:13] LABS: C Reactive Protein 149.09 mg/L (<8.01)
[2019-08-29] MEDS ORDERED: Aminophylline 25 MG/ML VIAL ONE (10:53)
[2019-08-29] MEDS ORDERED: Regadenoson 0.4 MG/5 ML SYRINGE ONE (10:53)
[2019-08-29] MEDS: HYDROcodone/ACETAMIN 5/325 mg TAB PO PRN ×2 (10:58→20:53)
[2019-08-29] MEDS ORDERED: Furosemide 20 mg/2 ml IV VIAL IV SLOW PU ONE (11:30)
[2019-08-29] MEDS ORDERED: Vancomycin 1,000 MG in NS 0.9% 250 ml 250 ML IV SCH (16:00)
[2019-08-29] MEDS: ceFAZolin 2 GM PREMIX 2 GM/50 ML BAG IVPB SCH (17:43)
[2019-08-30] MEDS: ceFAZolin 2 GM PREMIX 2 GM/50 ML BAG IVPB SCH ×4 (00:35→23:41)
[2019-08-30] MEDS ORDERED: Vancomycin Trough Check NOTE FOLLOW UP ONE (07:30)
[2019-08-30 08:40] LABS: Hematocrit 36 % (42-52); Hemoglobin 12.4 g/dL (14.0-18.0); Mean Corpuscular HGB Conc 34 g/dL (31-36); Mean Corpuscular Hemoglobin 29 pg (27-31); Mean Corpuscular Volume 86 fL (80-94); Mean Platelet Volume 8.3 fL (7.4-10.4); Platelet Count 200 10^3/uL (150-450); Red Blood Count 4.23 10^6 /uL (4.18-5.48); Red Cell Distribution Width 15 % (10-15); White Blood Count 9.2 10^3/uL (3.5-10.8)
[2019-08-30 08:55] LABS: EGFR African American 82.2 (>60); EGFR Non-African American 67.9 (>60); Potassium 4.1 mmol/L (3.5-5.0)
[2019-08-30] MEDS: HYDROcodone/ACETAMIN 5/325 mg TAB PO PRN ×2 (10:56→20:17)
[2019-08-30] MEDS ORDERED: D5NS 0.9% 1000 ml BAG 1,000 ML IV SCH (11:00)
[2019-08-30] MEDS ORDERED: Bupivacaine 0.25% SDV PF 10 ML VIAL INJ ONE (13:53)
[2019-08-30] MEDS ORDERED: Naloxone 0.4 mg VIAL 0.4 mg/ml 1 ml VIAL IV PRN (14:06)
[2019-08-30] MEDS ORDERED: HYDROmorphone 1 MG/1 ML SYRINGE IV PRN (14:06)
[2019-08-30] MEDS ORDERED: Ondansetron 4 mg VIAL 2 MG/ML 2 ml VIAL ONE (14:28)
[2019-08-30] MEDS ORDERED: Etomidate 20 mg/10 ml 2 MG/ML 10 ml VIAL ONE (14:28)
[2019-08-30] MEDS ORDERED: Lidocaine 2% PF 5 ML VIAL ONE (14:28)
[2019-08-30] MEDS ORDERED: Dexamethasone IV 4 MG/ML VIAL 1 ml VIAL ONE (14:28)
[2019-08-30] MEDS ORDERED: Propofol 10 MG/ML 20 ML BTL ONE (14:28)
[2019-08-31] MEDS: HYDROcodone/ACETAMIN 5/325 mg TAB PO PRN ×2 (04:39→22:13)
[2019-08-31] MEDS ORDERED: Lactated Ringers 1000 ml BAG 1,000 ML IV SCH (06:00)
[2019-08-31 06:18] LABS: ABS Eosinophils 0.1 10^3/ul (0-0.6); ABS Lymphocytes 1.5 10^3/ul (1.0-4.8); ABS Monocytes 0.7 10^3/ul (0-0.8); Eosinophil % 0.4 %; Hematocrit 37 % (42-52); Hemoglobin 12.8 g/dL (14.0-18.0); Lymphocyte % 11.6 %; Mean Corpuscular HGB Conc 34 g/dL (31-36); Mean Corpuscular Hemoglobin 30 pg (27-31); Mean Corpuscular Volume 86 fL (80-94); Platelet Count 255 10^3/uL (150-450); Red Blood Count 4.34 10^6 /uL (4.18-5.48); Red Cell Distribution Width 15 % (10-15)
[2019-08-31 06:28] LABS: BUN/Creatinine Ratio 18.1 (8-20); Calcium 8.1 mg/dL (8.6-10.3); EGFR African American 74.9 (>60); EGFR Non-African American 61.9 (>60); Potassium 4.7 mmol/L (3.5-5.0)
[2019-08-31] MEDS: ceFAZolin 2 GM PREMIX 2 GM/50 ML BAG IVPB SCH ×3 (08:02→23:34)
[2019-08-31] MEDS: Enoxaparin 40 MG/0.4 ML SYR(*) SUBCUT SCH (10:51)
[2019-09-01] MEDS: ceFAZolin 2 GM PREMIX 2 GM/50 ML BAG IVPB SCH ×2 (07:21→16:08)
[2019-09-01] MEDS ORDERED: Aspirin EC 81 mg TAB.EC (enteric coated) PO SCH (09:00)
[2019-09-01] MEDS: Enoxaparin 40 MG/0.4 ML SYR(*) SUBCUT SCH (10:25)
[2019-09-01] MEDS: HYDROcodone/ACETAMIN 5/325 mg TAB PO PRN (19:44)
[2019-09-02] MEDS: ceFAZolin 2 GM PREMIX 2 GM/50 ML BAG IVPB SCH ×2 (00:01→07:46)
[2019-09-02 12:47] VITALS: BP 160/62
[2019-09-02] MEDS: Enoxaparin 40 MG/0.4 ML SYR(*) SUBCUT SCH (12:50)
[2019-09-02] MEDS ORDERED: ceFAZolin* 2 GM in NS 100 MLS Q8H (Pharmacy Admix) IVPB SCH (16:00)
== END 2019-09-02 15:00 | disposition home or self-care (01) | DRG 580 ==
LOC: ED 04:23 → MEDTELE 07:47
PROVIDERS: ADMIT Pediatrics; ATTEND Internal Medicine

== ENCOUNTER 2020-06-21 15:14 | Inpatient (IN) ==
[2020-06-21] MEDS ORDERED: Ondansetron 4 mg VIAL 2 MG/ML 2 ml VIAL IV ONE (17:47)
[2020-06-21 17:55] LABS: ABS Eosinophils 0.1 10^3/ul (0-0.6); ABS Lymphocytes 0.7 10^3/ul (1.0-4.8); ABS Monocytes 0.9 10^3/ul (0-0.8); ABS Neutrophils 6.8 10^3/ul (1.5-7.7); Eosinophil % 1.2 %; Hematocrit 40 % (42-52); Hemoglobin 13.9 g/dL (14.0-18.0); Lymphocyte % 8.5 %; Mean Corpuscular HGB Conc 35 g/dL (31-36); Mean Corpuscular Hemoglobin 30 pg (27-31); Mean Corpuscular Volume 87 fL (80-94); Mean Platelet Volume 8.9 fL (7.4-10.4); Platelet Count 201 10^3/uL (150-450); Red Blood Count 4.57 10^6 /uL (4.18-5.48); Red Cell Distribution Width 14 % (10-15); White Blood Count 8.5 10^3/uL (3.5-10.8)
[2020-06-21 18:08] LABS: Influenza A Molecular Negative (Negative); Influenza B Molecular Negative (Negative)
[2020-06-21 18:11] LABS: INR 1.57 (0.82-1.09)
[2020-06-21 18:15] LABS: Albumin 3.4 g/dL (3.2-5.2); Albumin/Globulin Ratio 0.9 (1-3); C Reactive Protein 240.58 mg/L (<8.01); Calcium 8.6 mg/dL (8.6-10.3); EGFR African American 88.6 (>60); EGFR Non-African American 73.2 (>60); Globulin 3.9 g/dL (2-4); Potassium 3.7 mmol/L (3.5-5.0); Total Bilirubin 1.1 mg/dL (0.2-1.0); Total Protein 7.3 g/dL (6.4-8.9); Troponin I 0.01 ng/mL (<0.03)
[2020-06-21] MEDS ORDERED: cefTRIAXone 1 gm/50 mL NS BAG 1 GM/50 ML BAG IV ONE (18:18)
[2020-06-21] MEDS ORDERED: Azithromycin 500 mg/250 ml NS 500 MG/250 ML BAG IVPB ONE (18:18)
[2020-06-21] MEDS ORDERED: Dexamethasone IV 4 MG/ML 5 ML VIAL (20 MG) IVPB ONE (18:19)
[2020-06-21 18:54] LABS: Ferritin 606.7 ng/mL (24-336)
[2020-06-21] MEDS: NS 0.9% 1000 ml BAG 1,000 ML IV SCH (19:10)
[2020-06-21 20:34] LABS: Urine Appearance Cloudy; Urine Bacteria Absent (Absent); Urine Bilirubin Negative (Negative); Urine Blood 1+ (Negative); Urine Color Amber; Urine Glucose Negative (Negative); Urine Ketones 1+ (Negative); Urine Nitrite Negative (Negative); Urine Protein 2+(100 mg/dL) (Negative); Urine Red Blood Cell Trace(0-2/hpf) (Absent); Urine Urobilinogen Negative (Negative); Urine White Blood Cell Trace(0-5/hpf) (Absent)
[2020-06-21] MEDS ORDERED: NS 0.9% 1000 ml BAG 1,000 ML IV SCH (21:00)
[2020-06-21] MEDS ORDERED: Heparin 5000 UNITS/ML 1 mL VIAL SUBCUT SCH (22:00)
[2020-06-21] MEDS ORDERED: Azithromycin 500 mg/250 ml NS 500 MG/250 ML BAG IVPB SCH (22:00)
[2020-06-21] MEDS ORDERED: cefTRIAXone 1 gm/50 mL NS BAG 1 GM/50 ML BAG IVPB SCH (22:00)
[2020-06-22] MEDS: HYDROcodone/ACETAMIN 5/325 mg TAB PO PRN (01:04)
[2020-06-22] MEDS: Enoxaparin 40 MG/0.4 ML SYR SUBCUT SCH ×2 (01:05→20:55)
[2020-06-22 06:27] LABS: ABS Lymphocytes 0.8 10^3/ul (1.0-4.8); ABS Monocytes 0.3 10^3/ul (0-0.8); ABS Neutrophils 2.8 10^3/ul (1.5-7.7); Eosinophil % 0.1 %; Hematocrit 38 % (42-52); Hemoglobin 12.9 g/dL (14.0-18.0); Lymphocyte % 19.1 %; Mean Corpuscular HGB Conc 34 g/dL (31-36); Mean Corpuscular Hemoglobin 30 pg (27-31); Mean Corpuscular Volume 89 fL (80-94); Mean Platelet Volume 8.7 fL (7.4-10.4); Platelet Count 180 10^3/uL (150-450); Red Blood Count 4.26 10^6 /uL (4.18-5.48); Red Cell Distribution Width 14 % (10-15); White Blood Count 3.9 10^3/uL (3.5-10.8)
[2020-06-22 06:51] LABS: BUN/Creatinine Ratio 23.2 (8-20); Calcium 7.8 mg/dL (8.6-10.3); EGFR African American 111.4 (>60); EGFR Non-African American 92.1 (>60); Potassium 4.1 mmol/L (3.5-5.0)
[2020-06-22] MEDS: Cholecalciferol (VIT D3) 1,000 unit TAB PO SCH (08:21)
[2020-06-22] MEDS ORDERED: NS 0.9% 1000 ml BAG 1,000 ML IV SCH ×2 (14:31→23:00)
[2020-06-22 16:47] LABS: TSH Ultra Thyroid Stim Horm 0.51 mcIU/mL (0.34-5.60)
[2020-06-22] MEDS ORDERED: cefTRIAXone 1 gm/50 mL NS BAG 1 GM/50 ML BAG IVPB SCH (18:00)
[2020-06-22] MEDS ORDERED: Azithromycin 500 mg/250 ml NS 500 MG/250 ML BAG IVPB SCH (18:30)
[2020-06-23] MEDS: HYDROcodone/ACETAMIN 5/325 mg TAB PO PRN (03:04)
[2020-06-23] MEDS: Cholecalciferol (VIT D3) 1,000 unit TAB PO SCH (10:50)
[2020-06-23 14:33] VITALS: BP 130/73
== END 2020-06-23 14:30 | disposition home health service (06) | DRG 177 ==
LOC: ED 15:14 → MED 15:14 → OBSVTOIN 20:57 → MED 06-22 00:34
PROVIDERS: ADMIT Internal Medicine; ATTEND Internal Medicine